=== PATIENT | male | born 1945 | race Caucasian/White ===

== ENCOUNTER → 2018-01-29 10:31 | Outpatient (CLI) | payer MEDICARE, SELFPAY ==
[2018-01-29 12:33] LABS: Anion Gap 8 (5-15); BUN 26 mg/dL (7-18); BUN/Creat Ratio 23.2 RATIO (10-20); Calcium,Total 9.1 mg/dL (8.5-10.1); Chloride 108 mmol/L (98-107); Cholesterol 139 mg/dL (200); Creatinine, Serum 1.12 mg/dL (0.70-1.30); EST Glomerular Filtration Rate 69 mL/min (>60); Est Glom Filt Rate - Afr Amer 83 mL/min (>60); Glucose 77 mg/dL (74-106); High Density Lipoprotein 52 mg/dL; Potassium 4.4 mmol/L (3.5-5.1); Sodium Level 140 mmol/L (136-145); Triglycerides 92 mg/dL; Very Low Density Lipoprotein 18 mg/dL (5-40)
== END ==
PROVIDERS: Family Provider Family Medicine; PCP Family Medicine; Visit Provider Family Medicine
DX: E78.5 Hyperlipidemia, unspecified (principal)
CPT/HCPCS: 36415; 80048; 80061

== ENCOUNTER → 2018-04-25 16:09 | Outpatient (CLI) | payer MEDICARE, SELFPAY ==
[2018-04-15 09:08] VITALS: BMI 24.0
[2018-04-25 18:12] LABS: PSA,Total - Annual Screen 5.23 ng/mL (0.00-4.00)
== END ==
PROVIDERS: Family Provider Family Medicine; PCP Family Medicine; Visit Provider Family Medicine
DX: R39.11 Hesitancy of micturition (principal); Z12.5 Encounter for screening for malignant neoplasm of prostate
CPT/HCPCS: 36415; 84153; G0103

== ENCOUNTER → 2018-10-31 | Outpatient (CLI) | payer MEDICARE, SELFPAY ==
[2018-04-15 09:08] VITALS: BMI 24.0
[2018-11-06 11:13] LABS: PSA,Total- Diagnostic 3.24 ng/mL (0.0-4.0)
== END | disposition home or self-care (01) ==
PROVIDERS: Family Provider Family Medicine; PCP Family Medicine; Referring Provider Family Medicine; Visit Provider Family Medicine
DX: R97.20 Elevated prostate specific antigen [PSA] (principal)
CPT/HCPCS: 36415; 84153; G0103

== ENCOUNTER → 2019-01-30 | Outpatient (CLI) | payer MEDICARE, SELFPAY ==
[2018-04-15 09:08] VITALS: BMI 24.0
[2019-01-30 13:19] LABS: Anion Gap 6 (5-15); BUN 26 mg/dL (7-18); BUN/Creat Ratio 24.8 RATIO (10-20); Calcium,Total 9.4 mg/dL (8.5-10.1); Chloride 110 mmol/L (98-107); Cholesterol 124 mg/dL (200); Creatinine, Serum 1.05 mg/dL (0.70-1.30); EST Glomerular Filtration Rate 74 mL/min (>60); Est Glom Filt Rate - Afr Amer 89 mL/min (>60); Glucose 75 mg/dL (74-106); High Density Lipoprotein 51 mg/dL; Potassium 4.4 mmol/L (3.5-5.1); Sodium Level 143 mmol/L (136-145); Triglycerides 55 mg/dL; Very Low Density Lipoprotein 11 mg/dL (5-40)
== END | disposition home or self-care (01) ==
LOC: MFPLAB 10:16
PROVIDERS: Family Provider Family Medicine; PCP Family Medicine; Referring Provider Family Medicine; Visit Provider Family Medicine
DX: Z00.00 Encounter for general adult medical examination without abnormal findings (principal)
CPT/HCPCS: 36415; 80048; 80061

== ENCOUNTER → 2019-03-19 10:46 | Outpatient (CLI) | payer MEDICARE, SELFPAY ==
[2018-04-15 09:08] VITALS: BMI 24.0
--- NOTE | 2019-03-19 13:10 | PFTCOMP_ITS ---
COMPLETE PULMONARY FUNCTION TEST INTERPRETATION Brief HPI: Patient is a 73 year old male, currently under the care of myself, who presents to [facility] [place] for complete pulmonary function tests secondary to diagnosis of emphysema. Respiratory therapist reports good effort and reproducible results. Interpretation: Forced expiration spirometry shows a moderate large airways obstructive ventilatory defect with an FEV1 of 68% predicted. There is no significant bronchodilator response by strict ATS criteria. Spirograms are of good quality and plateau slowly, indicating slowly emptying areas of the lungs. The respiratory flow volume loop shows decreased expiratory flow rates at all lung volumes consistent with airway obstruction. Lung volumes by body plethysmography show an elevated total lung capacity at 8.15 L, 114% predicted. All other lung volumes are increased symmetrically. Diffusion capacity by carbon monoxide is decreased at 67% predicted. The airway resistance is elevated. Compared to previous pulmonary function tests from 03/13/2017, there is been a significant improvement by 15% in FEV1 and DLCO. Impression: Irreversible moderate large airways obstructive ventilatory defect with a symmetric reduction in diffusing capacity. There has been some improvement since 2017.
== END ==
PROVIDERS: Family Provider Family Medicine; PCP Family Medicine; Referring Provider Internal Medicine Critical Care Medicine; Visit Provider Internal Medicine Critical Care Medicine
DX: J43.2 Centrilobular emphysema (principal); G47.33 Obstructive sleep apnea (adult) (pediatric); Z99.89 Dependence on other enabling machines and devices
CPT/HCPCS: 94060; 94726; 94729

== ENCOUNTER 2019-10-31 06:58 | Outpatient (RCR) | payer MEDICARE, SELFPAY ==
[2019-10-28 07:50] VITALS: BMI 24.7
--- NOTE | 2019-10-31 07:37 | HP.PTEVAL ---
Patient's Visit Information CINDY VIDES is a 74 year old M referred to Physical Therapy by FAVIOLA Moreno with a diagnosis of Shoulder Pain. Date of Evaluation: 10/31/19 Physical Therapist: Radha Lechuga DPT - Visit Plan Frequency: 1x/Week Duration: 6 Weeks Plan: Focus on HEP- will call if the elbow gets worse - Subjective Patient reports that he has pain in the right elbow- When it flares up he can't bend his arm. In the last few days he has been much better. Insidious onset. Was digging in the flower beds and golfed yesterday and had no problems. [facility] and they gave him a Predisone dose pack and its gotten much better since then. He saw them two weeks ago. Pain is located along both sides of the elbow and does have some snapping but it does not make it worse. No pain radiating- described as dull and achy. Right hand dominate. Agg: bending but not a lot at this point. Eases: prednisone- or Advil. 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 No neck pain, [place], blurred vision. 1st time for elbow pain. Recreational activities: breaux and golf- salt [place] [employer]- [employer] boat. Feels the elbow is back to 90%. PMHx/Meds: no change since [facility]. - Objective Posture: good throughout. Palpation: tender along lateral epicondyle. ROM: WNL in all planes of cervical, shoulder, elbow,wrist and hand. Strength: Shoulder: 4+/5, Scap: fair plus, Elbow: 4+/5, Wrist: 4+/5, Handbag Framer: 100, 90, 100 (equal to other side). - Goals Goal 1:: Patient will be I with HEP and progression Goal Time Frame: 4-6 Weeks - Rehabilitation Potential Physical Therapy Diagnosis: Patient presents with lateral epicondylitis pain- he has decreased strength and flex leading to pain. Rehabilitation Potential: Good - Anticipated Interventions Patient/Client Instruction: Educate patient on: Benefits of Fitness Program Therapeutic Exercise to Include: Strength training, Endurance training, Body mechanics, Postural training Thank you for the opportunity to evaluate your patient. For Medicare and Medicare HMO plans, please review the plan of care and approve it. It will need to be FAXED BACK to us at [phone] for Medicare purposes. For Medicare only, by signing this I certify the plan of care. Please let me know if there are questions or concerns regarding this plan of care. Physician Signature: Date:
== END 2019-10-31 19:00 | disposition home or self-care (01) ==
LOC: PT 06:58
PROVIDERS: PCP Family Medicine; Referring Provider Physician Assistant Surgical; Visit Provider Physician Assistant Surgical
DX: S46.911D Strain of unspecified muscle, fascia and tendon at shoulder and upper arm level, right arm, subsequent encounter (principal)
CPT/HCPCS: 97110; 97161

== ENCOUNTER → 2020-01-30 08:23 | Outpatient (CLI) | payer MEDICARE, SELFPAY ==
[2019-10-28 07:50] VITALS: BMI 24.7
[2020-01-30 10:16] LABS: Anion Gap 7 (5-15); BUN 25 mg/dL (7-18); BUN/Creat Ratio 22.7 RATIO (10-20); Calcium,Total 9.3 mg/dL (8.5-10.1); Chloride 111 mmol/L (98-107); Cholesterol 132 mg/dL (200); EST Glomerular Filtration Rate 70 mL/min (>60); Est Glom Filt Rate - Afr Amer 84 mL/min (>60); Glucose 88 mg/dL (74-106); High Density Lipoprotein 52 mg/dL; PSA,Total - Annual Screen 2.89 ng/mL (0.00-4.00); Potassium 4.2 mmol/L (3.5-5.1); Sodium Level 142 mmol/L (136-145); Triglycerides 79 mg/dL; Very Low Density Lipoprotein 16 mg/dL (5-40)
== END ==
PROVIDERS: PCP Family Medicine; Referring Provider Family Medicine; Visit Provider Family Medicine
DX: Z00.00 Encounter for general adult medical examination without abnormal findings (principal); E78.5 Hyperlipidemia, unspecified; Z12.5 Encounter for screening for malignant neoplasm of prostate
CPT/HCPCS: 36415; 80048; 80061; 84153; G0103

== ENCOUNTER 2020-06-08 08:30 | Outpatient (RCR) | payer MEDICARE, SELFPAY ==
[2020-05-30 08:28] VITALS: BMI 24.0
--- NOTE | 2020-06-05 11:38 | HP.PTEVAL ---
Patient's Visit Information CINDY VIDES is a 75 year old M referred to Physical Therapy by FAVIOLA Moreno with a diagnosis of dizziness and giddiness. Date of Evaluation: 06/05/20 Physical Therapist: JIGNESH Golden - Visit Plan Frequency: 1x/Week Duration: 3 Weeks Plan: 1X/ week for 3 weeks to treat with repositioning and possible habituation exercises to decrease feeling of dizziness - Subjective This started about 3 weeks ago and was not doing anything at the time. Currently he has a lightheadedness sitting here and it does not stop him. He does not lose his balance. He notices it bending over to toe his shoes or ifhe is lying on his back and goes to stand up. He has had it before in his head where he couold not focus but does not have those issues this time. He had meclazenine and that did not work for the last week and a half. When he goes from supine to sit his head really spins for about less than a minute. No ear pain or ringing in his ears. IF he bend over to tie his shoes he will feel it a little bit. No BP meds. No room spinning dizziness. No LOB. He is still working out 3X/ week - Objective -R Hallpike for dizziness and nystagmus. On the L pt had no visable to the naked eye nystagmus but pt said the room was spinning for less than 30 seconds. Went ahead and treated with L EPLY. Re-check of L Hallpike and pt had no visable nystagmus and no dizziness. He sat back up and had a slight hint of dizziness but felt it was more of a blood pressure feeling than spinning. When walking out pt felt a slight overall head pressure feeling but not dizzy. - Goals Goal 1:: I HEP Goal Time Frame: 2-4 Weeks Goal 2:: Abolish dizziness when going from supine to sit Goal Time Frame: 2-4 Weeks Goal 3:: Abolish head dizzy feeling/ spacey when sitting. Goal Time Frame: 4-6 Weeks - Rehabilitation Potential Rehabilitation Potential: Good - Anticipated Interventions Patient/Client Instruction: Educate patient on: Condition, Plan of Care For the Purpose of:: To improve nutrient delivery to tissue, To improve muscle performance and motor function, To improve ability to perform ADL's, To increase tolerance to activity/condition/position, To improve performance and independence with ADL's, To decrease level of supervision to perform tasks, To improve ability of physical actions for home/community/work/leisure, To improve gait and locomotor functions Therapeutic Exercise to Include: Postural training, Gait and locomotor training, Neuromotor development, Passive ROM For the Purpose of:: To improve nutrient delivery to tissue, To improve muscle performance and motor function, To improve ability to perform ADL's, To increase tolerance to activity/condition/position, To improve performance and independence with ADL's, To improve gait and locomotor functions, To improve health of tissue Manual Therapy Techniques to Include: Other For the Purpose of:: To improve ability to perform ADL's, To increase tolerance to activity/condition/position, To improve ability of physical actions for home/community/work/leisure, To improve gait and locomotor functions, To improve balance Thank you for the opportunity to evaluate your patient. For Medicare and Medicare HMO plans, please review the plan of care and approve it. It will need to be FAXED BACK to us at [phone] for Medicare purposes. For Medicare only, by signing this I certify the plan of care. Please let me know if there are questions or concerns regarding this plan of care. Physician Signature: Date:
--- NOTE | 2020-09-08 13:21 | HP.PTDCNRP_ITS ---
CINDY MANUELA PEEWEE was seen in my office for initial evaluation on 06/05/20. The following Plan of Care was established for this patient: Initial Frequency: 1x/Week Initial Duration: 3 Weeks Patient/Client Instruction: Educate patient on: Condition, Plan of Care For the Purpose of:: To improve nutrient delivery to tissue, To improve muscle performance and motor function, To improve ability to perform ADL's, To increase tolerance to activity/condition/position, To improve performance and independence with ADL's, To decrease level of supervision to perform tasks, To improve ability of physical actions for home/community/work/leisure, To improve gait and locomotor functions Therapeutic Exercise to Include: Postural training, Gait and locomotor training, Neuromotor development, Passive ROM For the Purpose of:: To improve nutrient delivery to tissue, To improve muscle performance and motor function, To improve ability to perform ADL's, To increase tolerance to activity/condition/position, To improve performance and indepe ndence with ADL's, To improve gait and locomotor functions, To improve health of tissue Manual Therapy Techniques to Include: Other For the Purpose of:: To improve ability to perform ADL's, To increase tolerance to activity/condition/position, To improve ability of physical actions for home/community/work/leisure, To improve gait and locomotor functions, To improve balance This patient was last seen in our office 06/08/20. Pertinent comments regarding their Physical therapy will appear below: Pt was to call in within 2 weeks if his dizziness came back and he did not. He will be discharged from our care at this time. At this point I will be discontinuing this patient from physical therapy. I would be happy to see this patient again in the future if found appropriate by the physician. Thank you! Haley Tripp, MPT
== END 2020-06-08 19:00 | disposition home or self-care (01) ==
LOC: PT 08:30
PROVIDERS: PCP Family Medicine; Referring Provider Physician Assistant Surgical; Visit Provider Physician Assistant Surgical
DX: R42 Dizziness and giddiness (principal)
CPT/HCPCS: 97110; 97161

== ENCOUNTER → 2021-02-15 08:38 | Outpatient (CLI) | payer MEDICARE, SELFPAY ==
[2021-02-15 10:47] LABS: Anion Gap 6 (5-15); BUN 24 mg/dL (7-18); BUN/Creat Ratio 20.2 RATIO (10-20); Calcium,Total 9.7 mg/dL (8.5-10.1); Chloride 110 mmol/L (98-107); Cholesterol 130 mg/dL (200); Creatinine, Serum 1.19 mg/dL (0.70-1.30); EST Glomerular Filtration Rate 63 mL/min (>60); Est Glom Filt Rate - Afr Amer 77 mL/min (>60); Glucose 94 mg/dL (74-106); High Density Lipoprotein 47 mg/dL; PSA,Total - Annual Screen 3.17 ng/mL (0.00-4.00); Potassium 4.2 mmol/L (3.5-5.1); Sodium Level 143 mmol/L (136-145); Triglycerides 92 mg/dL; Very Low Density Lipoprotein 18 mg/dL (5-40)
== END ==
PROVIDERS: PCP Family Medicine; Visit Provider Family Medicine
DX: Z00.00 Encounter for general adult medical examination without abnormal findings (principal)
CPT/HCPCS: 36415; 80048; 80061; 84153; G0103

== ENCOUNTER 2021-08-12 18:30 | Outpatient (RCR) | payer MEDICARE, SELFPAY ==
--- NOTE | 2021-08-09 07:22 | HP.PTEVAL ---
Patient's Visit Information CINDY VIDES is a 76 year old M referred to Physical Therapy by Dr. Apolinar Lange MD with a diagnosis of vertigo. Date of Evaluation: 08/09/21 Physical Therapist: Rob Mustafa, DANIELE, OCS, CSCS - Visit Plan Frequency: 1-2x /Week Duration: 2-4 Weeks Plan: 1-2x/week x 2-4 weeks as needed for positional treatments and vestibular/balance if needed. - Subjective Vertigo. Has had it in the past. No spinning at rest. Lying in bed and rolling or bending and standing cause some spinning for 5-10 seconds. Present a couple weeks. Feels normal in between those episodes. Treadmill is fine and balance is fine. No falls. sleeps well after first 5 seconds or when turns to right then annoying for a little bit. Offered meclizine but hasn't helped int he past. Activities are normal otherwise. - Objective Walking on TM for workout upon start time of therapy as he does this 3x/week with some weight training. Good balance, trasnfers normal and I and jogs up steps. Cervical aROM is full and without pain. - B hallpike brisa. + L roll test with geotropic nystagmus, treated with BBQ roll. - Balance/Special Test Scores Functional Gait Assessment Score: 30 % Disability: 0 Dizziness Score: 20 - Goals Goal 1:: abolish dizzyness bending and rolling in bed. x 3 days Goal Time Frame: 2-4 Weeks Goal 2:: pt feel 100% back to normal Goal Time Frame: 2-4 Weeks - Rehabilitation Potential Physical Therapy Diagnosis: BPPV HC Rehabilitation Potential: Fair - Anticipated Interventions Patient/Client Instruction: Educate patient on: Condition, Plan of Care For the Purpose of:: To increase tolerance to activity/condition/position Therapeutic Exercise to Include: Balance training Comment: positional For the Purpose of:: To increase tolerance to activity/condition/position, To improve safety Thank you for the opportunity to evaluate your patient. For Medicare and Medicare HMO plans, please review the plan of care and approve it. It will need to be FAXED BACK to us at [phone] for Medicare purposes. For Medicare only, by signing this I certify the plan of care. Please let me know if there are questions or concerns regarding this plan of care. Physician Signature: Date:
--- NOTE | 2021-09-28 18:29 | HP.PT.NRP ---
CINDY MANUELA PEEWEE was seen in my office for initial evaluation on 08/09/21. The following Plan of Care was established for this patient: Initial Frequency: 1-2x /Week Initial Duration: 2-4 Weeks Patient/Client Instruction: Educate patient on: Condition, Plan of Care For the Purpose of:: To increase tolerance to activity/condition/position Therapeutic Exercise to Include: Balance training For the Purpose of:: To increase tolerance to activity/condition/position, To improve safety This patient was last seen in our office 08/12/21. Pertinent comments regarding their Physical therapy will appear below: Pt seen two visits of positional treatments. He was 75% better and was to return for monitor of continued improvement. He did not. At this point, it has been over a month and I will discontinue due to nonattendance. At this point I will be discontinuing this patient from physical therapy. I would be happy to see this patient again in the future if found appropriate by the physician. Thank you! Rob Mustafa, DPT, OCS, CSCS Balance/Gait/Functional tests - Balance/Special Test Scores Functional Gait Assessment Score: 30 % Disability: 0 Dizziness Score: 20
== END 2021-08-12 19:00 | disposition home or self-care (01) ==
LOC: PT 18:30
PROVIDERS: PCP Family Medicine; Referring Provider Family Medicine; Visit Provider Family Medicine
DX: R42 Dizziness and giddiness (principal)
CPT/HCPCS: 97161; 97530

== ENCOUNTER → 2022-03-16 | Outpatient (CLI) | payer MEDICARE, SELFPAY ==
[2022-03-16 13:02] LABS: Anion Gap 6 (5-15); BUN 24 mg/dL (7-18); BUN/Creat Ratio 22.2 RATIO (10-20); Calcium,Total 9.6 mg/dL (8.5-10.1); Chloride 108 mmol/L (98-107); Cholesterol 143 mg/dL (200); Creatinine, Serum 1.08 mg/dL (0.70-1.30); EST Glomerular Filtration Rate 71 mL/min (>60); Est Glom Filt Rate - Afr Amer 86 mL/min (>60); Glucose 81 mg/dL (74-106); High Density Lipoprotein 50 mg/dL; PSA,Total - Annual Screen 3.41 ng/mL (0.00-4.00); Potassium 4.8 mmol/L (3.5-5.1); Sodium Level 143 mmol/L (136-145); Triglycerides 81 mg/dL; Very Low Density Lipoprotein 16 mg/dL (5-40)
== END | disposition home or self-care (01) ==
LOC: MFPLAB 09:32
PROVIDERS: PCP Family Medicine; Referring Provider Family Medicine; Visit Provider Family Medicine
DX: Z00.00 Encounter for general adult medical examination without abnormal findings (principal); E78.5 Hyperlipidemia, unspecified; Z12.5 Encounter for screening for malignant neoplasm of prostate
CPT/HCPCS: 36415; 80048; 80061; 84153; G0103

== ENCOUNTER → 2022-06-17 | Outpatient (CLI) | payer MEDICARE, SELFPAY ==
[2022-06-17 18:11] LABS: Erythrocyte Sedimentation Rate 14 mm/hr (0-20)
[2022-06-17 18:12] LABS: Absolute Lymphocyte Count 0.93 X10^3/uL (0.83-4.51); Absolute Neutrophil Count 4.8 X10^3/uL (2.0-7.7); Basophil# 0.03 X10^3/uL; Basophil% 0.5 % (0-1); Eosinophils% 1.5 % (0-5); Hemoglobin 12.7 g/dL (13.0-16.5); Lymphocyte # 0.93 X10^3/ul (0.83-4.51); Lymphocyte % 14.4 % (19-41); Mean Corp Hgb Conc 32.6 g/dL (32-36); Mean Corpuscular Hgb 31.5 pg (27.0-32.0); Mean Corpuscular Volume 96.8 fL (80-94); Mean Platelet Vol. 9.8 fl (6.2-12.0); Monocyte# 0.55 X10^3/uL; Monocyte% 8.5 % (0-10); NRBC Flagged by Analyzer 0 % (0-5); Neutrophil # 4.82 X10^3/uL (2.7-7.7); Neutrophil % 74.6 % (47-70); Platelet Count 255 K/mm3 (150-450); RBC Distribution Width CV 13.7 % (11.6-14.6); RBC Distribution Width SD 49.1 fl (35.1-43.9); Red Blood Count 4.03 M/mm3 (4.6-6.2); White Blood Count 6.5 K/mm3 (4.4-11.0)
[2022-06-17 18:24] LABS: ALB/GLOB Ratio 0.9 RATIO (0.9-2.4); AST(SGOT) 17 U/L (15-37); Alanine Aminotransfer ALT/SGPT 17 U/L (16-61); Albumin, Serum 3.3 g/dL (3.2-5.0); Alkaline Phosphatase 70 U/L (45-117); Anion Gap 8 (5-15); BUN 21 mg/dL (7-18); BUN/Creat Ratio 18.3 RATIO (10-20); Calcium,Total 9.3 mg/dL (8.5-10.1); Chloride 103 mmol/L (98-107); Creatinine, Serum 1.15 mg/dL (0.70-1.30); EST Glomerular Filtration Rate 66 mL/min (>60); Est Glom Filt Rate - Afr Amer 80 mL/min (>60); Globulin 3.7 g/dL (2.2-4.2); Glucose 90 mg/dL (74-106); Potassium 3.6 mmol/L (3.5-5.1); Sodium Level 140 mmol/L (136-145); Thyroid Stim Hormone (TSH) 1.42 uIU/mL (0.358-3.74)
== END | disposition home or self-care (01) ==
LOC: MFPLAB 15:13
PROVIDERS: PCP Family Medicine; Visit Provider Family Medicine
DX: R53.81 Other malaise (principal); R53.83 Other fatigue
CPT/HCPCS: 36415; 80053; 84443; 85025; 85652

== ENCOUNTER → 2023-03-20 | Outpatient (CLI) | payer MEDICARE, SELFPAY ==
[2023-03-20 11:44] LABS: Vitamin D,25 Hydroxy 75.9 ng/mL
[2023-03-20 11:59] LABS: Anion Gap 5 (5-15); BUN 23 mg/dL (7-18); BUN/Creat Ratio 21.9 RATIO (10-20); Calcium,Total 9.5 mg/dL (8.5-10.1); Chloride 109 mmol/L (98-107); Cholesterol 151 mg/dL (200); Creatinine, Serum 1.05 mg/dL (0.70-1.30); EST Glomerular Filtration Rate 73 mL/min (>60); Est Glom Filt Rate - Afr Amer 88 mL/min (>60); Glucose 89 mg/dL (74-106); High Density Lipoprotein 50 mg/dL; PSA,Total- Diagnostic 3.34 ng/mL (0.0-4.0); Potassium 4.4 mmol/L (3.5-5.1); Sodium Level 141 mmol/L (136-145); Triglycerides 110 mg/dL; Very Low Density Lipoprotein 22 mg/dL (5-40)
== END | disposition home or self-care (01) ==
LOC: MFPLAB 09:10
PROVIDERS: PCP Family Medicine; Visit Provider Family Medicine
DX: Z00.00 Encounter for general adult medical examination without abnormal findings (principal); R53.81 Other malaise; R53.83 Other fatigue
CPT/HCPCS: 36415; 80048; 80061; 82306; 84153

== ENCOUNTER 2023-04-24 12:56 | Inpatient (IN) | payer MEDICARE, SELFPAY ==
[2023-04-24] VITALS (7 sets, daily range): BP systolic 131–170; BP diastolic 71–92; PULSE 58–72; RESP 18–20; TEMP 35.6–36.7; O2SAT 94–98; BMI 24.3; BMI 24.5
--- NOTE | 2023-04-24 13:28 | EDS_ITS ---
HPI History of Present Illness Chief Complaint: Dizziness Informant: patient Onset/Context/Timing Onset: Weeks (3) Context: Gradual Onset Timing: Continuous and Waxes and wanes Quality: Off balance Location: Generalized Worsened by: Standing Relieved by: Sitting, lying down Narrative Narrative: Patient presents with dizziness that began 3 weeks ago. Patient states it has been waxing and waning over the past 3 weeks. Patient states it is worse whenever he stands up. Patient states he feels more off balance. Patient denies any spinning sensation. Patient states that he feels like he is falling to the left when he tries to ambulate. Patient states it is better when he sits and lies down. Patient admits to a mild headache. Patient admits to some nausea but denies any vomiting. Patient denies any fevers or chills. Patient denies any chest pain or shortness of breath. Patient denies any visual or hearing changes. [facility] Medical History (Updated 04/24/23 @ 15:[address] Rob Vizcaino, DO) BPH (benign prostatic hyperplasia) COPD (chronic obstructive pulmonary disease) with emphysema COVID-19 Former tobacco use History of colonic polyps EFFIE (obstructive sleep apnea) Home Medications tamsulosin 0.4 mg capsule 0.4 mg PO DAILY PROSTATE 04/02/19 [History Last Taken Unknown] meclizine 25 mg tablet 25 mg PO TID PRN DIZZINESS #30 tabs 05/24/20 [Rx Last Taken Unknown] fluticasone propionate 50 mcg/actuation nasal spray,suspension 2 spray intranasal DAILY NASAL CONGESTION #16 grams 04/20/22 [Rx Last Taken Unknown] ipratropium 20 mcg-albuterol 100 mcg/actuation mist for inhalation (Combivent Respimat) 1 puff inhalation Q6H WHEEZING #4 grams 08/09/22 [Rx Last Taken Unknown] Allergy/AdvReac Type Severity Reaction Status Date / Time Environmental Allergies: Allergy sneezing Verified 04/24/23 12:57 Uncoded [hay] animal dander AdvReac Mild Other Verified 04/24/23 12:57 oak AdvReac Mild Other Verified 04/24/23 12:57 moxifloxacin HCl AdvReac Nausea Verified 04/24/23 12:57 [From Avelox] prochlorperazine AdvReac Other Verified 04/24/23 12:57 [From Compazine] prochlorperazine edisylate AdvReac Other Verified 04/24/23 12:57 [From Compazine] prochlorperazine maleate AdvReac Other Verified 04/24/23 12:57 [From Compazine] Family History Father Hypertension Kidney disease Mother Hypertension CVA (cerebral vascular accident) Surgical History History of appendectomy History of back surgery History of left knee surgery History of right hemicolectomy Social History (Updated 04/24/23 @ 15:[address] Glenda Araujo MD) household members: spouse Smoking Status: Former smoker pack-years: 63 second hand exposure: No alcohol intake: current alcohol intake frequency: holidays/special occasions only Alcohol type: beer substance use type: does not use caffeine: Yes (3/day) ROS ROS ED Constitutional Constitutional ED: Denies chills or fever(s) Eyes Eyes: Denies blurry vision or change in vision ENT ENT ED: Denies rhinorrhea or sore throat Cardiovascular Cardiovascular: Denies chest pain or palpitations Respiratory/Chest Respiratory/Chest: Denies cough or dyspnea Gastrointestinal Gastrointestinal: Reports nausea; Denies vomiting Genitourinary Genitourinary ED: Denies dysuria or hematuria Musculoskeletal Musculoskeletal: Denies back pain or neck pain Integumentary Denies abscess or rash Neurologic Neurologic: Reports headache(s); Denies weakness Allergic/Immunologic Allergic/Immunologic ED: Denies mouth swelling or urticaria EXAM Physical Exam Const Vital Signs: 04/24/23 12:57 04/24/23 15:03 04/24/23 15:21 Temperature 96.1 F L Temperature Source Temporal Pulse Rate 72 Pulse Rate [Lying] 58 L Pulse Rate [Sitting (for 1 minute prior to obtaining)] 68 Pulse Rate [Standing (for 1 minute prior to obtaining)] 63 Respiratory Rate 18 Respiratory Effort Normal Non-Labored Respiratory Pattern Normal Blood Pressure 131/82 H Blood Pressure [Lying] 138/71 H Blood Pressure [Sitting (for 1 minute prior to obtaining)] 137/84 H Blood Pressure [Standing (for 1 minute prior to obtaining)] 133/87 H Blood Pressure Mean 98 Blood Pressure Mean [Lying] 93 Blood Pressure Mean [Sitting (for 1 minute prior to obtaining)] 101 Blood Pressure Mean [Standing (for 1 minute prior to obtaining)] 102 Pulse Ox 97 Oxygen Delivery Method Room Air Positive well nourished and well developed General Appearance ED: well developed and NAD HEENT Reports moist mucous membranes Eyes PERRL and EOMs intact bilaterally Eyes Narrative: There is no nystagmus noted. Neck supple and no JVD Resp normal respiratory effort and clear to auscultation bilaterally Cardio regular rate and regular rhythm GI non-tender and non-distended Palpation: soft Extremity normal to inspection General Extremety ED: Negative for edema or tenderness General Extremity: Negative for edema Neuro oriented x3, CN's II-XII intact bilaterally and no sensory deficits noted Sensorium / Orientation: alert Motor Exam: strength 5/5 throughout Psych mental status grossly normal MDM MDM MDM Narrative Medical decision making narrative: Differential diagnosis includes vertigo, orthostatic hypotension, stroke, electrolyte abnormality, dehydration, cardiac dysrhythmia, and cardiac ischemia. EKG will be obtained to assess for cardiac dysrhythmia and cardiac ischemia. CT scan of the brain will be obtained to assess for stroke and intracranial bleeding. CBC will be obtained to assess for leukocytosis and anemia. Basic metabolic profile will be obtained to assess for electrolyte abnormality and renal function. Lab Data Attestation: I reviewed the patient's lab results. Lab results narrative: CBC was reviewed and was within normal limits. Basic metabolic profile was reviewed and was within normal limits. High-sensitivity troponin was reviewed and was normal at 8. Labs: Laboratory Results - last 24 hr 04/24/23 14:15 WBC 7.3 RBC 4.71 Hgb 14.4 Hct 44.9 MCV 95.3 H MCH 30.6 MCHC 32.1 RDW Std Deviation 47.1 H RDW Coeff of [place] 13.4 Plt Count 247 MPV 9.9 Immature Gran % (Auto) 0.400 Neut % (Auto) 88.0 H Lymph % (Auto) 7.2 L [place] % (Auto) 3.7 Eos % (Auto) 0.3 Baso % (Auto) 0.4 Absolute Neuts (auto) 6.5 Absolute Lymphs (auto) 0.53 L Nucleated RBC % 0 Differential Comment SEE COMMENT Platelet Estimate ADEQUATE RBC Morphology N CHROM Anisocytosis RARE Macrocytosis RARE Sodium 139 Potassium 4.4 Chloride 108 H Carbon Dioxide 27.0 Anion Gap 4 L BUN 25 H Creatinine 1.07 Estim Creat Clear Calc 62.55 Est GFR (MDRD) Af Amer 86 Est GFR (MDRD) Non-Af 71 BUN/Creatinine Ratio 23.4 H Glucose 88 Calcium 10.0 Troponin I High Sens 8 Radiography Diagnostic Testing: Clinical Impression(s) from Imaging Studies Brain CT 04/24/23 14:35 IMPRESSION: Right cerebellar low-density lesion could be due to infarct or tumor. Further evaluation with MRI of the brain with contrast is recommended. Electronically Signed: Adarsh Soto MD at 14:57 EST , ADDENDUM: 04/24/23 1514 IMPRESSION: Right cerebellar low-density lesion could be due to infarct or tumor. Further evaluation with MRI of the brain with contrast is recommended. N.B. : The above Results were Read Back by Adarsh Soto MD to Rob Vizcaino DO, and understanding confirmed on 04/24/2023 15:07:09 (ET). Electronically Signed: Adarsh Soto MD at 14:57 EST , CT scan of the brain was obtained. There is a right cerebellar low-density lesion that could be infarct or tumor. There is no definite intracranial hemorrhage or hematoma. This was interpreted by the radiologist and was also independently reviewed by myself. EKG Initial EKG: Attestation: I personally reviewed and interpreted this EKG as follows: Interpretation: Sinus Bradycardia (56) and Non-Specific ST Changes Comments: EKG was obtained. On my independent interpretation, it showed a sinus bradycardia with a rate of 56. SD interval, QRS interval, and QTc intervals were all normal. [place] was normal. There are nonspecific ST-T wave changes. There is low voltage across the precordial leads. Prior EKG tracings: available for review Prior: Unchanged (03/14/2015) Treatment and Re-Evaluation :: Patient was given a dose of Valium here. Orthostatic vital signs were ordered. Patient had no change in his symptoms after Valium. However, patient has been sitting in bed. Patient was advised of his findings. Case was discussed with the hospitalist. She will admit the patient to her service. Patient understood and was agreeable with the plan. All questions were answered. Discharge Plan Triage Chief Complaint: Dizziness ED Provider: Rob Vizcaino Dx/Rx/DC Orders Clinical Impression: Vertigo, Cerebellar stroke Prescriptions: No Action tamsulosin 0.4 mg capsule 0.4 mg PO DAILY meclizine 25 mg tablet 25 mg PO TID PRN (Reason: DIZZINESS ) Qty: 30 1RF fluticasone propionate 50 mcg/actuation spray,suspension 2 spray INTRANASAL DAILY Qty: 16 5RF Combivent Respimat 20-100 mcg/actuation mist 1 puff INHALATION Q6H Qty: 4 3RF Primary Care Provider: Apolinar Lange Referrals: Apolinar Lange MD [Primary Care Provider] - Disposition Disposition: Acute Care Hospital [facility]
--- NOTE | 2023-04-24 13:50 | EKG12_ITS ---
Test Reason : Blood Pressure : / mmHG Vent. Rate : 056 BPM Atrial Rate : 056 BPM P-R Int : 144 ms QRS Dur : 076 ms QT Int : 408 ms P-R-T Axes : 018 006 021 degrees QTc Int : 393 ms Sinus bradycardia Possible Inferior infarct , age undetermined Abnormal ECG Confirmed by CHARLIE RUIZ, GILMA ([id number]), editor in chief newspaper RADHA STEPHENSON ([id number]) on 04/25/2023 10:07:11 AM Referred By: Confirmed By:GILMA GUERRA MD
[2023-04-24] MEDS: 0.9% Normal Saline (1000mL) 1,000 ML 1000 ML IV (14:21)
[2023-04-24] MEDS: diazePAM 5 MG Tablet 2.5 MG PO (14:21)
[2023-04-24 14:26] LABS: Absolute Lymphocyte Count 0.53 X10^3/uL (0.83-4.51); Absolute Neutrophil Count 6.5 X10^3/uL (2.0-7.7); Basophil# 0.03 X10^3/uL; Basophil% 0.4 % (0-1); Eosinophil# 0.02 X10^3/uL; Eosinophils% 0.3 % (0-5); Hematocrit 44.9 % (40-54); Hemoglobin 14.4 g/dL (13.0-16.5); Lymphocyte # 0.53 X10^3/ul (0.83-4.51); Lymphocyte % 7.2 % (19-41); Mean Corp Hgb Conc 32.1 g/dL (32-36); Mean Corpuscular Hgb 30.6 pg (27.0-32.0); Mean Corpuscular Volume 95.3 fL (80-94); Mean Platelet Vol. 9.9 fl (6.2-12.0); Monocyte# 0.27 X10^3/uL; Monocyte% 3.7 % (0-10); NRBC Flagged by Analyzer 0 % (0-5); Neutrophil # 6.46 X10^3/uL (2.7-7.7); POSITIVE DIFFERENTIAL YES; Platelet Count 247 K/mm3 (150-450); RBC Distribution Width CV 13.4 % (11.6-14.6); RBC Distribution Width SD 47.1 fl (35.1-43.9); Red Blood Count 4.71 M/mm3 (4.6-6.2); White Blood Count 7.3 K/mm3 (4.4-11.0)
[2023-04-24 14:28] LABS: Differential Indicated SCAN CRITERIA MET
--- NOTE | 2023-04-24 14:35 | CT_ITS ---
We are attempting to reach an attending provider to discuss findings. An addendum with communication details will be sent when the communication is complete. INDICATION: Headache EXAMINATION: CT BRAIN - CT Head or Brain W/O Contrast Injection TECHNIQUE: Multiple axial images were obtained of the head without intravenous contrast. A radiation dose optimization technique was used for this scan. IV Contrast dosage and agent: None. RADIATION DOSAGE (If Supplied By Facility): CTDIvol = ( 44.99 ) mGy, DLP = ( 880.47 ) mGycm COMPARISON: No relevant prior comparison study available FINDINGS: BRAIN PARENCHYMA: No intra- or extra-axial hemorrhage. Hypodense lesion in the right cerebellar with vasogenic edema. No definite intracranial hemorrhage or subdural hematoma. There is otherwise preservation of the arnold/white matter interface. Posterior fossa structures are unremarkable. CSF SPACES: Appropriate for age. No hydrocephalus. Basal cisterns are patent. CALVARIUM, SKULL BASE, PARANASAL SINUSES AND MASTOID AIR CELLS: Clear. No discrete lytic or blastic abnormalities. ORBITS: Both globes, extraocular muscles, optic nerves and retrobulbar fat appear unremarkable. CT/Brain/Head without Contrast IMPRESSION: Right cerebellar low-density lesion could be due to infarct or tumor. Further evaluation with MRI of the brain with contrast is recommended. Electronically Signed: Adarsh Soto MD at 14:57 EST ,
[2023-04-24 14:52] LABS: Anion Gap 4 (5-15); BUN 25 mg/dL (7-18); BUN/Creat Ratio 23.4 RATIO (10-20); Chloride 108 mmol/L (98-107); Creatinine, Serum 1.07 mg/dL (0.70-1.30); EST Glomerular Filtration Rate 71 mL/min (>60); Est Glom Filt Rate - Afr Amer 86 mL/min (>60); Estimated Creatinine Clearance 62.55 ml/min; Glucose 88 mg/dL (74-106); Potassium 4.4 mmol/L (3.5-5.1); Sodium Level 139 mmol/L (136-145); Troponin-I HS 8 pg/mL (3.0-78.0)
--- OUTSIDE RECORDS SUMMARY | 2023-04-24 14:59 | XMS RPT_ITS | CCD ---
Author Name Unknown Address [address] [place] [address] Organization [facility] Care Team Providers Care Assistant Kitchen Manager Name Role Phone Claribel Herman Unavailable Unavailable Claribel Herman Unavailable Unavailable Allergies Allergy Classification Reported Allergen(s) Allergy Type Date of Onset Reaction(s) Facility (2 sources) moxifloxacin Drug Allergy 5 Nausea [facility] Phone: (2 sources) Prochlorperazine Drug Allergy 5 Tardykinesia [facility] Phone: Medications Completed/Discontinued Medications Medication Drug Class(es) Dates Sig (Normalized) Sig (Original) acetaminophen 325 mg / oxyCODONE hydrochloride 5 mg oral tablet (6 sources) Opioid Agonist Start: 03-25-2015 End: 07-09-2015 take 1-2 tablets by mouth every four hours as needed PERCOCET 5-325 MG TABS 1-2 tablets PO q4h as needed OXYCODONE-ACETAMI SHANKARHEN [id number] Claribel Conteh 120 actuat albuterol 0.1 mg/actuat / ipratropium bromide 0.02 mg/actuat metered dose inhaler (2 sources) Anticholinergic, beta2-Adrenergic Agonist Start: 03-03-2015 take 20-100 ug by inhalation every six hours as needed COMBIVENT RESPIMAT 20-100 MCG/ACT AERS 2 puffs INH q6 hours PRN wheezing IPRATROPIUM-ALBUT SHARLENE [id number] Ashley Hale CNP aspirin 81 mg oral tablet (4 sources) Platelet Aggregation Inhibitor, Nonsteroidal Anti-inflammatory Drug Start: 03-25-2015 End: 07-09-2015 take 1 tablet by mouth once daily ASPIRIN 81 MG ORAL TABS One tablet by mouth daily ASPIRIN [id number] Claribel E Tullar fluticasone propionate 0.05 mg/actuat metered dose nasal spray (2 sources) Corticosteroid Start: 03-25-2015 FLONASE ALLERGY RELIEF 50 MCG/ACT SUSP Nasally twice daily as needed FLUTICASONE PROPIONATE [id number] Claribel E Tullar 14 actuat fluticasone furoate 0.1 mg/actuat / vilanterol 0.025 mg/actuat dry powder inhaler (8 sources) Corticosteroid, beta2-Adrenergic Agonist Start: 07-09-2015 End: 10-03-2016 take 1 puff(s) by inhalation once daily BREO ELLIPTA 100-25 MCG/INH AEPB 1 puff daily FLUTICASONE FUROATE-VILANTERO L [id number] Ashley Hale IMMIGRATION INSPECTOR loratadine 10 mg oral tablet (2 sources) Start: 03-25-2015 take 1 tablet by mouth once daily as needed CLARITIN 10 MG TABS One tablet by mouth daily as needed LORATADINE [id number] Claribel E Ashoklar omeprazole 40 mg delayed release oral capsule (4 sources) Proton Pump Inhibitor End: 07-09-2015 take 1 tablet by mouth once daily PRILOSEC 40 MG ORAL CPDR One tablet by mouth daily OMEPRAZOLE [id number] Ashley Hale IMMIGRATION INSPECTOR Problems Active Problems Problem Classification Problem Date Documented Da te Episodic/Chronic Chronic obstructive pulmonary disease and bronchiectasis (6 sources) Chronic obstructive lung disease; Translations: [Moderate chronic obstructive pulmonary disease] Onset: 07-09-2015 Resolved: 04-06-2016 04-06-2016 Chronic Residual codes; unclassified (2 sources) Obstructive sleep apnea of adult; Translations: [Obstructive sleep apnea (adult) (pediatric)] Onset: 03-26-2015 03-29-2015 Chronic Past or Other Problems Problem Classification Problem Date Documented Da te Episodic/Chronic Other lower respiratory disease (4 sources) Dyspnea; Translations: [Dyspnea, unspecified] Onset: 03-26-2015 Resolved: 10-12-2015 10-12-2015 Episodic Results Test Name Value Interpretation Reference Range Facil ity Vital Signs Date Time Vital Sign Value Performing Clinician Faci lity 10-03-2016 13:44-0400 BMI (Body Mass Index) 25.77 kg/m2 Claribel Virgil [facility] Work Phone: 10-03-2016 13:44-0400 Body Temperature 98.9 [degF] Claribel Virgil [facility] Work Phone: 10-03-2016 13:44-0400 BP Diastolic 83 mm[Hg] Claribel Virgil [facility] Work Phone: 10-03-2016 13:44-0400 BP Systolic 136 mm[Hg] Claribel Impulsonic [facility] Work Phone: 10-03-2016 13:44-0400 Height 182.88 cm Claribel Impulsonic [facility] Work Phone: 10-03-2016 13:44-0400 Pulse (Heart Rate) 60 /min Claribel [facility]ulsonic [facility] Work Phone: 10-03-2016 13:44-0400 Pulse Oximetry 96 % Claribel [facility]ulsonic [facility] Work Phone: 10-03-2016 13:44-0400 Respiratory Rate 18 /min Claribel [facility]ulsonic [facility] Work Phone: 10-03-2016 13:44-0400 Weight 86.18 kg Claribel [facility]ic [facility] Work Phone: 04-06-2016 08:42-0500 Body Temperature 96.8 [degF] Claribel Impulsonic [facility] Work Phone: 04-06-2016 08:42-0500 BSA (Body Surface Area) 2.09 m2 Claribel Impulsonic [facility] Work Phone: 04-06-2016 08:42-0500 Height 182.88 cm Claribel [facility]ulsonic [facility] Work Phone: 04-06-2016 08:42-0500 Weight 86.82 kg Claribelgeorge Herman [facility] Work Phone: Procedures Date Procedure Procedure Detail Performing Clinician Start: 07-09-2015 End: 07-09-2015 Demo&/eval of pt utiliz aersl gen/neb/inhlr/ip Ashley Hale IMMIGRATION INSPECTOR Work Phone: Start: 07-09-2015 End: 04-01-2016 Follow Up Appt 3 months Ashley huang YOGI Work Phone: Start: 03-26-2015 End: 04-01-2016 [facility] Adarsh Smith Work Phone: Start: 03-26-2015 End: 04-01-2016 Follow Up Appt 3 months Adarsh Smith Work Phone: Start: 03-26-2015 End: 04-01-2016 Pulmonary Function Test - complete Adarsh Smith [facility] Phone: Start: 03-26-2015 End: 04-01-2016 Pulmonary stress test/simple Adarsh Smith Work Phone: Plan of Treatment Date Care Activity Detail Author Start: 04-03-2017 End: 04-03-2017 Appointment Appointment [facility] Phone: Start: 03-13-2017 End: 10-03-2016 Pulmonary Function Test - complete Pulmonary Function Test - complete [facility] Phone: Start: 03-13-2017 End: 10-03-2016 Pulmonary stress test/simple Pulmonary stress testing; simple (eg, 6-minute walk) [facility] Phone: Start: 10-03-2016 End: 10-03-2016 [facility] Phone: Start: 10-03-2016 End: 10-03-2016 Follow Up Appt 6 months Follow Up Appt 6 months [facility] Phone: Start: 04-06-2016 End: 04-06-2016 [facility] Work Phone: Start: 04-06-2016 End: 04-06-2016 Follow Up Appt 6 months Follow Up Appt 6 months [facility] Work Phone: Start: 03-17-2016 End: 10-08-2015 Pulmonary Function Test - complete Pulmonary Function Test - complete [facility] Work Phone: Start: 10-08-2015 End: 10-08-2015 Follow Up Appt 6 months Follow Up Appt 6 months [facility] Work Phone: Start: 07-09-2015 End: 04-01-2016 Follow Up Appt 3 months Follow Up Appt 3 months [facility] Work Phone: Start: 03-26-2015 End: 04-01-2016 [facility] Work Phone: Start: 03-26-2015 End: 04-01-2016 Follow Up Appt 3 months Follow Up Appt 3 months [facility] Work Phone: Start: 03-26-2015 End: 04-01-2016 Pulmonary Function Test - complete Pulmonary Function Test - complete [facility] Work Phone: Start: 03-26-2015 End: 04-01-2016 Pulmonary stress test/simple Pulmonary stress testing; simple (eg, 6-minute walk) [facility] Phone: Patient Education CPAP [facility] Phone: Additional Source Comments FOR RECORDS PERTAINING TO PATIENTS WHO ARE OR HAVE BEEN ENROLLED IN A CHEMICAL DEPENDENCY/SUBSTANCEABUSE PROGRAM, SOME INFORMATION MAY BE OMITTED. This clinical summary was aggregated from multiple sources. Caution should be exercised in using it in the provision of clinical care. This summary normalizes information from multiple sources, and as a consequence, information in this document may materially change the coding, format and clinical context of patient data. In addition, data may be omitted in some cases. CLINICAL DECISIONS SHOULD BE BASED ON THE PRIMARY CLINICAL RECORDS. [employer] [facility]. provides no warranty or guarantee of the accuracy or completeness of information in this document.
[2023-04-24 15:09] LABS: Platelet Estimate ADEQUATE (ADEQ)
[2023-04-24 15:10] LABS: Anisocytosis RARE; Macrocytosis RARE; Red Cell Morphology N CHROM NORMAL (NORM C&C)
--- NOTE | 2023-04-24 15:22 | PCM.HP.STD ---
HPI - General General Date of Admission: 04/24/23 Date of Service: 04/24/23 Chief Complaint: Dizziness, L leaning sensation, headache. HPI Narrative The patient is a 77 y/o M w/ PMHx: BPH, COPD, EFFIE, BPPV, Former tobacco use who presents to the [facility] ED on 04/24/22 with history of ongoing dizziness for the last 3 weeks noted to be continuous however it can wax and wane in severity with sensation of feeling off balance worsened binding activities and somewhat improved when he lays down or sits with no specific spinning sensation with noted falling sensation from the left when he attempts to ambulate with a mild headache as well as some mild nausea with no emesis nor any recent fever or chills or URI type symptoms but given ongoing prompted eventual ED evaluation. Does report his previous issues with vertigo have resolved primarily with vestibular therapy and has not had much improvement with meclizine. He does report being seen by his primary care physician with meclizine prescribed however he had worsening symptoms with more severe nausea and emesis per his spouse's report eventually prompting him to be brought into the ED today. Workup in the ED included T96.1, heart rate 72, BP 131/82, respiratory rate 18, 97% on room air, CBC with WBC 7.3, hemoglobin 14.4, platelet 247 with lymphopenia, BMP with chloride 108, BUN/creatinine 25/1.07 otherwise not marked appearing, troponin 8, CT brain with a right cerebellar low-density lesion possibly secondary to infarct versus tumor, EKG with sinus bradycardia with nonspecific ST changes with no acute evidence of ischemia unchanged from previous. In the ED patient was administered 1 L normal saline as well as 2.5 mg p.o. x 1 Valium with no improvement in symptoms of note. [facility] Medical History BPH (benign prostatic hyperplasia) COPD (chronic obstructive pulmonary disease) with emphysema COVID-19 Former tobacco use History of colonic polyps EFFIE (obstructive sleep apnea) Home Medications tamsulosin 0.4 mg capsule 0.4 mg PO DAILY PROSTATE 04/02/19 [History Last Taken 04/24/23] fluticasone propionate 50 mcg/actuation nasal spray,suspension 2 spray intranasal DAILY NASAL CONGESTION #16 grams 04/20/22 [Rx Last Taken Unknown] ipratropium 20 mcg-albuterol 100 mcg/actuation mist for inhalation (Combivent Respimat) 1 puff inhalation Q6H PRN WHEEZING 04/24/23 [History Last Taken Unknown] Allergy/AdvReac Type Severity Reaction Status Date / Time Environmental Allergies: Allergy sneezing Verified 04/24/23 12:57 Uncoded [hay] animal dander AdvReac Mild Other Verified 04/24/23 12:57 oak AdvReac Mild Other Verified 04/24/23 12:57 moxifloxacin HCl AdvReac Nausea Verified 04/24/23 12:57 [From Avelox] prochlorperazine AdvReac Other Verified 04/24/23 12:57 [From Compazine] prochlorperazine edisylate AdvReac Other Verified 04/24/23 12:57 [From Compazine] prochlorperazine maleate AdvReac Other Verified 04/24/23 12:57 [From Compazine] Family History Father Hypertension Kidney disease Mother Hypertension CVA (cerebral vascular accident) Surgical History History of appendectomy History of back surgery History of left knee surgery History of right hemicolectomy Social History (Updated 04/24/23 @ 15:[address] Glenda Araujo MD) household members: spouse Smoking Status: Former smoker pack-years: 63 second hand exposure: No alcohol intake: current alcohol intake frequency: holidays/special occasions only Alcohol type: beer substance use type: does not use caffeine: Yes (3/day) ROS ROS Narrative Admission Review of Systems: CONSTITUTIONAL: No weight loss, fever, chills, + weakness or fatigue. HEENT: Eyes: No visual loss, blurred vision, double vision or yellow sclerae. Ears, Nose, Throat: No hearing loss, sneezing, congestion, runny nose or sore throat. SKIN: No rash or itching, lesions, wounds. CARDIOVASCULAR: No chest pain, chest pressure or chest discomfort, palpitations, edema, orthopnea, syncopal events. RESPIRATORY: No shortness of breath, cough or sputum, wheezing, hemoptysis. GASTROINTESTINAL: + anorexia, nausea, vomiting, No diarrhea, abdominal pain, melena, BRBPR. GENITOURINARY: No dysuria, frequency, urgency or retention. NEUROLOGICAL: + headache, dizziness, imbalance with left leaning, worse with activity attempts. No syncope, paralysis, ataxia, numbness or tingling in the extremities, focal weakness, change in bowel or bladder control, seizure. MUSCULOSKELETAL: + muscle, back pain, joint pain or stiffness. HEMATOLOGIC: No anemia, bleeding or bruising. LYMPHATICS: No enlarged nodes. No history of splenectomy. PSYCHIATRIC: No history of depression or anxiety. ENDOCRINOLOGIC: No reports of sweating, cold or heat intolerance. No polyuria or polydipsia. ALLERGIES: + History of allergic rhinitis. Vital Signs Vital Signs Vital Signs: 04/24/23 12:57 04/24/23 15:03 Temperature 96.1 F L Temperature Source Temporal Pulse Rate 72 Respiratory Rate 18 Respiratory Effort Normal Non-Labored Respiratory Pattern Normal Blood Pressure 131/82 H Blood Pressure Mean 98 Pulse Ox 97 Oxygen Delivery Method Room Air Weight Weight: 174 lb Body Mass Index (BMI) 24.3 Physical Exam Narrative Physical Examination: General: Awake, alert, oriented x 3 and cooperative, seated upright in the ED bed in no apparent distress, notes currently symptoms controlled. Skin: Normal color, normal turgor, no icterus, no cyanosis. HEENT: AT/NC, EOMI, PERRLA, dry MM, no carotid bruits or JVD noted. Lungs: CTA bilaterally, moderate effort, mild decrease BL bases, no rales, ronchi or wheezing. Heart: Mildly bradycardic with regular rhythm; no gallop, rub audible. Abdomen: Soft, NTTP, ND, hyperactive BS, no HSM. Extremities: No cyanosis, clubbing, or edema. Neurological: Patient awake, alert, oriented as noted, cognitive function intact; pupils equally reactive to light and accommodation, cranial nerves grossly normal, moving all 4 extremities, unremarkable Babinski, sensation intact, finger-nose and [id number] appropriate, strength given symptoms moderately to severely globally decreased however no focal deficits, unable to elicit any type of nystagmus, with activity attempts patient left leaning with onset of dizziness sensation without room spinning primarily with getting up although mildly improved since Valium. Psychiatric: Affect appears fatigued otherwise normal, no acute evidence of depressive or anxiety feelings. Results Lab / Micro Data 04/24/23 14:15 04/24/23 14:15 Labs: Laboratory Results - last 24 hr 04/24/23 14:15: WBC 7.3, RBC 4.71, Hgb 14.4, Hct 44.9, MCV 95.3 H, MCH 30.6, MCHC 32.1, RDW Std Deviation 47.1 H, RDW Coeff of [place] 13.4, Plt Count 247, MPV 9.9, Immature Gran % (Auto) 0.400, Neut % (Auto) 88.0 H, Lymph % (Auto) 7.2 L, [place] % (Auto) 3.7, Eos % (Auto) 0.3, Baso % (Auto) 0.4, Absolute Neuts (auto) 6.5, Absolute Lymphs (auto) 0.53 L, Nucleated RBC % 0, Differential Comment SEE COMMENT, Platelet Estimate ADEQUATE, RBC Morphology N CHROM, Anisocytosis RARE, Macrocytosis RARE, Sodium 139, Potassium 4.4, Chloride 108 H, Carbon Dioxide 27.0, Anion Gap 4 L, BUN 25 H, Creatinine 1.07, Estim Creat Clear Calc 62.55, Est GFR (MDRD) Af Amer 86, Est GFR (MDRD) Non-Af 71, BUN/Creatinine Ratio 23.4 H, Glucose 88, Calcium 10.0, Troponin I High Sens 8 Imagaing Rad[address] Imp[address] Brain CT 04/24/23 14:35 IMPRESSION: Right cerebellar low-density lesion could be due to infarct or tumor. Further evaluation with MRI of the brain with contrast is recommended. Electronically Signed: Adarsh Soto MD at 14:57 EST , ADDENDUM: 04/24/23 1514 IMPRESSION: Right cerebellar low-density lesion could be due to infarct or tumor. Further evaluation with MRI of the brain with contrast is recommended. N.B. : The above Results were Read Back by Adarsh Soto MD to Rob Vizcaino DO, and understanding confirmed on 04/24/2023 15:07:09 (ET). Electronically Signed: Adarsh Soto MD at 14:57 EST , Assessment & Plan Assessment/Plan (1) CVA (cerebral vascular accident): PLAN: Plan The patient is a 77 y/o M w/ PMHx: BPH, COPD, EFFIE, BPPV, Former tobacco use who presents to the [facility] ED on 04/24/22 with history of ongoing dizziness for the last 3 weeks noted to be continuous however it can wax and wane in severity with sensation of feeling off balance worsened binding activities and somewhat improved when he lays down or sits with no specific spinning sensation with noted falling sensation from the left when he attempts to ambulate with a mild headache as well as some mild nausea with no emesis. #1. Dizziness, imbalance with left leaning with CT notable for right cerebellar low-density lesion concerning for possible recent CVA versus possible tumor: Will admit to PCU, will obtain MRI Brain with and without in case tumor, CTA Head and Neck, ECHO, PT/OT/Speech/Nutrition evaluation per protocol. Will allow permissive HTN, maintain on asa only given concerns for possible tumor, at least a moderate dose statin in the interim w/ AM FLP, fall precautions. Mag, TSH, FLP, HgbA1c requested. Maintain on fall and aspiration precautions. Continue as needed meclizine. Will request neurology consultation. #2. Chronic COPD: Will temporally hold home inhalers and maintain on ATC duonebs, PRN albuterol, HOB, IS parameters. #3. BPH: We will continue patient on Flomax regimen. #4. Former tobacco use: Encourage continued tobacco cessation. #5. EFFIE: Will maintain on PAP therapy nightly. #6. History colonic polyp: Patient with significant polyp history although noted to be benign but ended up with a right hemicolectomy. #8. DVT prophylaxis: SCDs, hold any chemoprophylaxis given unclear if findings on CT are infarct versus tumor. #9. CODE status: Patient CHANG is his who is present and living will is currently in place. Discussed CODE status at length including difference between FULL code, DNR-CCA and DNR-CC status. Following discussions about the differences in these status, requested Full Code status. Advanced Care Planning Face to Face Time: 16 minutes. Charges/Coding Visit Charges Inpatient E&M: 15690 Init Hosp L3 Procedures Hospitalists Procedures: 02650 Advncd Care Plan 30 Min
--- NOTE | 2023-04-24 15:35 | CT_ITS ---
STUDY: CTA HEAD AND NECK WITH CONTRAST REASON FOR EXAM: Male, 77 years old. Neuro deficit, acute, stroke suspected RADIATION DOSAGE (If Supplied By Facility): CTDIvol = ( 24.33 ) mGy, DLP = ( 788.18 ) mGycm TECHNIQUE: CT angiography was performed with a multi-detector CT scanner. Data acquisition was obtained from the skull base through the vertex following intravenous administration of [id number] 100ML. MIP images were reconstructed from the axial data set. Post-processing of the angiographic images was performed, with multiplanar reformation and 3D reconstruction. Individualized dose optimization techniques were used for this CT. COMPARISON: No relevant priors. FINDINGS: Normal bilateral petrous carotid arteries. Mild calcific plaquing of the right cavernous carotid artery with a normal supraclinoid bifurcation. Normal left cavernous carotid artery with a normal supraclinoid bifurcation. Normal right A1 segments of the anterior cerebral artery. Normal left A1 segments of the anterior cerebral artery. Anterior communicating artery not visualized consistent with normal variant). Normal bilateral A2 segments of the anterior cerebral arteries. Normal right M1 and M2 segments of the middle cerebral arteries, with a normal M1 bifurcation. Normal left M1 and M2 segments of the middle cerebral arteries, with a normal M1 bifurcation. Posterior communicating arteries aren''t visualized consistent with normal variant Normal bilateral vertebral arteries. Normal basilar artery with a normal basilar bifurcation. The visualized bilateral superior cerebellar (SCA) arteries are normal. Normal bilateral P1, P2 and visualized P3 segments of the posterior cerebral arteries. There is no demonstrated aneurysm of the [place] of [place]. AORTIC ARCH: Normal visualized aortic arch. Normal origins of the brachiocephalic, left common carotid, and left subclavian arteries. RIGHT CAROTID ARTERIES: Normal right common carotid artery (CCA). Minor calcific plaquing of the right common carotid bulb. Mild calcific plaquing of the origin of the right internal carotid (ICA) artery without a hemodynamically significant stenosis. Normal visualized cervical portion of the right internal carotid artery. Normal origin of the right external carotid artery (ECA). LEFT CAROTID ARTERIES: Normal left common carotid artery (CCA). Minor calcific plaquing of the left common carotid bulb. Mild calcific plaquing of the origin of the left internal carotid (ICA) artery without a hemodynamically significant stenosis. Normal visualized cervical portion of the left internal carotid artery. Normal origin of the left external carotid artery (ECA). VERTEBRAL ARTERIES: Normal bilateral vertebral arteries. CT/CTA Head AND Neck W/ Contrast IMPRESSION: Mild atherosclerotic changes without evidence for hemodynamically significant stenosis or vascular occlusion within the head or neck. Electronically Signed: Casey Coburn MD at 16:30 EST ,
[2023-04-24 16:15] LABS: Magnesium 2.3 mg/dL (1.6-2.6)
--- NOTE | 2023-04-24 16:51 | MRI_ITS ---
STUDY: MRI BRAIN WITH AND WITHOUT CONTRAST REASON FOR EXAM: Male, 77 years old. CVA versus tumor on CT TECHNIQUE: Standardized multiplanar fat and water weighted pulse sequences were obtained. IV 15 cc clariscan was administered for the contrast portion of the examination. COMPARISON: CT of the brain April 24, 2023 FINDINGS: Mild atrophy and periventricular white matter ischemic changes without mass effect or restricted diffusion.. Normal bilateral basal ganglia. Normal thalami. There is no extra-axial fluid accumulation. Normal flow voids within the major intracranial circulation suggesting patency by spin echo criteria. Normal venous enhancement. There is no enhancing intra-axial or extra-axial abnormality. Normal sella turcica, pituitary gland, infundibular stalk, optic chiasm and hypothalamus. Normal tectal plate and pineal gland. Normal midbrain, eder and medulla. There are edematous changes in the right cerebellar hemisphere in association with a large heterogeneously enhancing thick-walled mass measuring approximately 3.6 x 2.95 x 2.4 cm producing mass effect upon the fourth ventricle which is displaced slightly without evidence for obstructive hydrocephalus at this time. There is also mild mass effect upon the lower eder and medulla Normal basal cisterns. Normal bilateral temporal bones. Normal bilateral internal auditory canals. Postsurgical changes of the orbits.. Normal visualized paranasal sinuses. Normal calvarium and skull base. Normal visualized soft tissue structures. Normal visualized upper cervical spine. 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 Mild atrophy and periventricular white matter ischemic changes Electronically Signed: Casey Coburn MD at 19:50 EST ,
--- NOTE | 2023-04-24 16:51 | ECHOD_ITS ---
Reason For Study: TIA/CVA Procedure This was a 2D Doppler, Color Flow transthoracic echocardiogram. Exam performed portable in patient room. Left Ventricle Normal LV size. Left ventricular systolic function is normal. The estimated ejection fraction is 55 %. No regional wall motion abnormalities noted. Right Ventricle Normal RV size. Normal systolic function. Atria Normal left atrium. Normal right atrium. Bubble contrast study negative for right to left interatrial shunt. Mitral Valve Normal mitral valve. Tricuspid Valve Normal tricuspid valve. Mild (1+) tricuspid valve insufficiency. Pulmonary artery systolic pressure is 38 mmHg. Aortic Valve Normal aortic valve. Trisinus/trileaflet aortic valve. Pulmonic Valve Normal pulmonic valve. Great Vessels Moderately dilated aortic root. The pulmonary artery is normal size. Normal inferior vena cava. Pericardium/Pleural No pericardial effusion. Medication Performed a rapid injection of agitated mix of 9 cc saline and 1cc air to assess for atrial septal defect. MMode/2D Measurements & Calculations LVIDd: 5.2 cm IVSd: 1.2 cm Ao root diam: 4.7 cm LVIDs: 3.0 cm LVPWd: 0.88 cm LA dimension: 4.5 cm FS: 41.7 % LAV(MOD-bp): 67.8 ml LA A4 area: 21.9 cm2 RA A4 area: 20.2 cm2 LAV(MOD-bp) Indexed: 33.8 ml/m2 LAV(MOD-sp2): 67.7 ml LAV(MOD-sp4): 59.3 ml Time Measurements MV dec time: 0.20 sec Doppler Measurements & Calculations MV E max rehan: 77.9 cm/sec Lat Peak E' Rehan: 10.2 cm/sec Med Peak E' Rehan: 9.1 cm/sec MV A max rehan: 76.4 cm/sec E/E' lat: 7.7 E/E' med: 8.6 MV E/A: 1.0 MV V2 max: 78.6 cm/sec MV P1/2t max rehan: 76.8 cm/sec Ao V2 max: 132.3 cm/sec MV max P.5 mmHg MV P1/2t: 66.5 msec Ao max P.0 mmHg MV V2 mean: 42.9 cm/sec MV dec slope: 338.4 cm/sec2 Ao V2 mean: 85.0 cm/sec MV mean P.86 mmHg Ao mean P.3 mmHg MV V2 VTI: 30.0 cm MVA(P1/2t): 3.3 cm2 Ao V2 VTI: 25.2 cm AV (velocity ratio): 1.1 LV V1 max: 137.1 cm/sec PA V2 max: 99.9 cm/sec TR max rehan: 293.3 cm/sec LV V1 max P.5 mmHg TR max P.4 mmHg LV V1 mean P.7 mmHg LV V1 mean: 71.6 cm/sec LV V1 VTI: 28.0 cm ECHO/Echo Complete Interpretation Summary Normal LV size. Left ventricular systolic function is normal. The estimated ejection fraction is 55 %. Moderately dilated aortic root. Mild (1+) tricuspid valve insufficiency. Ordering Physician: Glenda Araujo Referring Physician: Apolinar Lange Performed By: Alexis Steen RCS
[2023-04-24] MEDS: Ondansetron 4 MG/2 ML Vial IV (17:31)
--- NOTE | 2023-04-24 18:02 | NURSING ---
Pt got to the unit. MRI called saying they were ready for the pt. RN gave zofran before pt left for MRI.
[2023-04-24] MEDS: 0.9% Normal Saline (1000mL) 1,000 ML 100 ML IV (19:53)
[2023-04-24] MEDS: 0.9% Saline Lock 10 ML Syringe IV (19:53)
[2023-04-25 01:34] VITALS: BMI 24.5
[2023-04-25 01:50] VITALS: BMI 24.9
[2023-04-25 03:20] VITALS: BP 131/78; PULSE 64; RESP 18; TEMP 36.4; O2SAT 91
[2023-04-25 05:55] VITALS: BP 133/80; PULSE 55; RESP 18; TEMP 36.7; O2SAT 97
[2023-04-25] MEDS: Ondansetron 4 MG/2 ML Vial 8 MG IV ×2 (05:57→14:17)
[2023-04-25] MEDS: 0.9% Saline Lock 10 ML Syringe IV ×2 (05:57→14:18)
[2023-04-25 08:00] VITALS: O2SAT 99
[2023-04-25 08:08] LABS: Absolute Lymphocyte Count 0.79 X10^3/uL (0.83-4.51); Absolute Neutrophil Count 6.1 X10^3/uL (2.0-7.7); Basophil# 0.03 X10^3/uL; Basophil% 0.4 % (0-1); Eosinophil# 0.03 X10^3/uL; Eosinophils% 0.4 % (0-5); Hematocrit 39.5 % (40-54); Hemoglobin 12.7 g/dL (13.0-16.5); Lymphocyte # 0.79 X10^3/ul (0.83-4.51); Lymphocyte % 10.6 % (19-41); Mean Corp Hgb Conc 32.2 g/dL (32-36); Mean Corpuscular Hgb 30.9 pg (27.0-32.0); Mean Corpuscular Volume 96.1 fL (80-94); Mean Platelet Vol. 9.6 fl (6.2-12.0); Monocyte# 0.43 X10^3/uL; Monocyte% 5.8 % (0-10); NRBC Flagged by Analyzer 0 % (0-5); Neutrophil # 6.14 X10^3/uL (2.7-7.7); Neutrophil % 82.4 % (47-70); Platelet Count 237 K/mm3 (150-450); RBC Distribution Width CV 13.4 % (11.6-14.6); RBC Distribution Width SD 47.8 fl (35.1-43.9); Red Blood Count 4.11 M/mm3 (4.6-6.2); White Blood Count 7.5 K/mm3 (4.4-11.0)
--- NOTE | 2023-04-25 08:50 | PN.HOSP_ITS ---
Reason for Visit Reason for Visit: Diagnoses Cerebral infarction, unspecified (04/24/23) Objective Data Objective Data Vital Signs: Vital Signs Temp Pulse Resp BP Pulse Ox O2 Del Method FiO2 98.1 F 55 L 18 133/80 H 99 Room Air 21 04/25/23 05:55 04/25/23 05:55 04/25/23 05:55 04/25/23 05:55 04/25/23 08:00 04/25/23 08:00 04/24/23 22:45 Oxygen Delivery Method Room Air Weight: 178 lb 12.718 oz Body Mass Index (BMI) 24.9 Intake & Output: Intake and Output for Last 24 Hours 04/23/23 04/24/23 04/25/23 23:59 23:59 23:59 Intake Total 1000 / 1000 1000 / 1000 Balance 1000 / 1000 1000 / 1000 Lab / Micro Data 04/25/23 07:55 04/24/23 14:15 Labs: Laboratory Results - last 24 hr 04/24/23 14:15: WBC 7.3, RBC 4.71, Hgb 14.4, Hct 44.9, MCV 95.3 H, MCH 30.6, MCHC 32.1, RDW Std Deviation 47.1 H, RDW Coeff of Linwood 13.4, Plt Count 247, MPV 9.9, Immature Gran % (Auto) 0.400, Neut % (Auto) 88.0 H, Lymph % (Auto) 7.2 L, Tillman % (Auto) 3.7, Eos % (Auto) 0.3, Baso % (Auto) 0.4, Absolute Neuts (auto) 6.5, Absolute Lymphs (auto) 0.53 L, Nucleated RBC % 0, Differential Comment SEE COMMENT, Platelet Estimate ADEQUATE, RBC Morphology N CHROM, Anisocytosis RARE, Macrocytosis RARE, Sodium 139, Potassium 4.4, Chloride 108 H, Carbon Dioxide 27.0, Anion Gap 4 L, BUN 25 H, Creatinine 1.07, Estim Creat Clear Calc 62.55, Est GFR (MDRD) Af Amer 86, Est GFR (MDRD) Non-Af 71, BUN/Creatinine Ratio 23.4 H , Glucose 88, Calcium 10.0, Magnesium 2.3, Troponin I High Sens 8 04/25/23 07:55: WBC 7.5, RBC 4.11 L, Hgb 12.7 L, Hct 39.5 L, MCV 96.1 H, MCH 30.9, MCHC 32.2, RDW Std Deviation 47.8 H, RDW Coeff of Linwood 13.4, Plt Count 237, MPV 9.6, Immature Gran % (Auto) 0.400, Neut % (Auto) 82.4 H, Lymph % (Auto) 10.6 L, Tillman % (Auto) 5.8, Eos % (Auto) 0.4, Baso % (Auto) 0.4, Absolute Neuts (auto) 6.1, Absolute Lymphs (auto) 0.79 L, Nucleated RBC % 0 Radiography Diagnostic Testing: Radiology Impression Brain CT 04/24/23 14:35 IMPRESSION: Right cerebellar low-density lesion could be due to infarct or tumor. Further evaluation with MRI of the brain with contrast is recommended. Electronically Signed: Adarsh Soto MD at 14:57 EST , ADDENDUM: 04/24/23 1514 IMPRESSION: Right cerebellar low-density lesion could be due to infarct or tumor. Further evaluation with MRI of the brain with contrast is recommended. N.B. : The above Results were Read Back by Adarsh Soto MD to Rob Vizcaino DO, and understanding confirmed on 04/24/2023 15:07:09 (ET). Electronically Signed: Adarsh Soto MD at 14:57 EST , Head/Neck CTA 04/24/23 15:35 IMPRESSION: Mild atherosclerotic changes without evidence for hemodynamically significant stenosis or vascular occlusion within the head or neck. 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 Mild atrophy and periventricular white matter ischemic changes Electronically Signed: Casey Coburn MD at 19:50 EST Reading Location ID and State: [facility] / [place] Tel , Service support , Assessment & Plan Assessment/Plan (1) CVA (cerebral vascular accident): PLAN: Plan The patient is a 77 y/o M Came to ED for dizziness for 3 weeks, waxing and waning in quality worse on standing up. Also complained of off balance but no vertigo. On walking he felt like falling to the left. Patient also had mild headache but no chest pain or shortness of breath, visual or hearing changes. No fever or chills. #1. Dizziness, imbalance with left leaning with CT notable for right cerebellar low-density lesion concerning for possible recent CVA versus possible tumor: Will admit to PCU, will obtain MRI Brain with and without in case tumor, CTA Head and Neck, ECHO, PT/OT/Speech/Nutrition evaluation per protocol. Will allow permissive HTN, maintain on asa only given concerns for possible tumor, at least a moderate dose statin in the interim w/ AM FLP, fall precautions. Mag, TSH, FLP, HgbA1c requested. Maintain on fall and aspiration precautions. Continue as needed meclizine. Will request neurology consultation. #2. Chronic COPD: Will temporally hold home inhalers and maintain on ATC duonebs, PRN albuterol, HOB, IS parameters. #3. BPH: We will continue patient on Flomax regimen. #4. Former tobacco use: Encourage continued tobacco cessation. #5. EFFIE: Will maintain on PAP therapy nightly. #6. History colonic polyp: Patient with significant polyp history although noted to be benign but ended up with a right hemicolectomy. #8. DVT prophylaxis: SCDs, hold any chemoprophylaxis given unclear if findings on CT are infarct versus tumor. #9. CODE status: Patient HCPOA is his who is present and living will is currently in place. Discussed CODE status at length including difference between FULL code, DNR-CCA and DNR-CC status. Following discussions about the differences in these status, requested Full Code status. Advanced Care Planning Face to Face Time: 16 minutes.
--- NOTE | 2023-04-25 08:50 | PCM.PN.HOSP ---
Reason for Visit Reason for Visit: Diagnoses Cerebral infarction, unspecified (04/24/23) Objective Data Objective Data Vital Signs: Vital Signs Temp Pulse Resp BP Pulse Ox O2 Del Method FiO2 98.1 F 55 L 18 133/80 H 99 Room Air 21 04/25/23 05:55 04/25/23 05:55 04/25/23 05:55 04/25/23 05:55 04/25/23 08:00 04/25/23 08:00 04/24/23 22:45 Oxygen Delivery Method Room Air Weight: 178 lb 12.718 oz Body Mass Index (BMI) 24.9 Intake & Output: Intake and Output for Last 24 Hours 04/23/23 04/24/23 04/25/23 23:59 23:59 23:59 Intake Total 1000 / 1000 1000 / 1000 Balance 1000 / 1000 1000 / 1000 Lab / Micro Data 04/25/23 07:55 04/25/23 07:55 Labs: Laboratory Results - last 24 hr 04/24/23 14:15: WBC 7.3, RBC 4.71, Hgb 14.4, Hct 44.9, MCV 95.3 H, MCH 30.6, MCHC 32.1, RDW Std Deviation 47.1 H, RDW Coeff of Linwood 13.4, Plt Count 247, MPV 9.9, Immature Gran % (Auto) 0.400, Neut % (Auto) 88.0 H, Lymph % (Auto) 7.2 L, [place]hel % (Auto) 3.7, Eos % (Auto) 0.3, Baso % (Auto) 0.4, Absolute Neuts (auto) 6.5, Absolute Lymphs (auto) 0.53 L, Nucleated RBC % 0, Differential Comment SEE COMMENT, Platelet Estimate ADEQUATE, RBC Morphology N CHROM, Anisocytosis RARE, Macrocytosis RARE, Sodium 139, Potassium 4.4, Chloride 108 H, Carbon Dioxide 27.0, Anion Gap 4 L, BUN 25 H, Creatinine 1.07, Estim Creat Clear Calc 62.55, Est GFR (MDRD) Af Amer 86, Est GFR (MDRD) Non-Af 71, BUN/Creatinine Ratio 23.4 H, Glucose 88, Calcium 10.0, Magnesium 2.3, Troponin I High Sens 8 04/25/23 07:55: WBC 7.5, RBC 4.11 L, Hgb 12.7 L, Hct 39.5 L, MCV 96.1 H, MCH 30.9, MCHC 32.2, RDW Std Deviation 47.8 H, RDW Coeff of Linwood 13.4, Plt Count 237, MPV 9.6, Immature Gran % (Auto) 0.400, Neut % (Auto) 82.4 H, Lymph % (Auto) 10.6 L, [place]hel % (Auto) 5.8, Eos % (Auto) 0.4, Baso % (Auto) 0.4, Absolute Neuts (auto) 6.1, Absolute Lymphs (auto) 0.79 L, Nucleated RBC % 0 Radiography Diagnostic Testing: Radiology Impression Brain CT 04/24/23 14:35 IMPRESSION: Right cerebellar low-density lesion could be due to infarct or tumor. Further evaluation with MRI of the brain with contrast is recommended. Electronically Signed: Adarsh Soto MD at 14:57 EST , ADDENDUM: 04/24/23 1514 IMPRESSION: Right cerebellar low-density lesion could be due to infarct or tumor. Further evaluation with MRI of the brain with contrast is recommended. N.B. : The above Results were Read Back by Adarsh Soto MD to Rob Vizcaino DO, and understanding confirmed on 04/24/2023 15:07:09 (ET). Electronically Signed: Adarsh Soto MD at 14:57 EST , Head/Neck CTA 04/24/23 15:35 IMPRESSION: Mild atherosclerotic changes without evidence for hemodynamically significant stenosis or vascular occlusion within the head or neck. 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 Mild atrophy and periventricular white matter ischemic changes Electronically Signed: Casey Coburn MD at 19:50 EST Reading Location ID and State: [address] [place] [address] Tel , Service support , Physical Exam Narrative Seen and examined. Patient admitted with dizziness, loss of balance for 3 weeks, disequilibrium with deviation to 1 side. Denies vertigo Physical exam: General: Alert, Oriented x3, Cooperative HEENT: Atraumatic, PERRLA, EOMI, Normocephalic Oral: No Gingival or Mucosal Lesions/ Ulcerations Neck: Supple, No JVD, Negative Carotid Bruits Lungs: Air entry diminished in bilateral lung bases. No crepitation/rhonchi Cardiovascular: Regular rate, Regular Rhythm, Normal S1, Normal S2, No murmurs Abdomen: Bowel Sounds Present, Soft, Non Tender, Non-Distended : No renal angle tenderness. No suprapubic tenderness. Extremities: No edema, Capillary Refill Less than 3 Seconds Skin: No rashes, No breakdown Musculoskeletal: No Tenderness to Palpation of Joints or Extremities. Muscle strength 5/5 at knee joints and hip joints. Neurological: Did not check the gait. Cranial nerves II-XII grossly intact, DTR 2+/4. No loss of vision.Gross sensation to light touch normal bilaterally. No dysmetria on [id number] and [id number] test. Plantar reflex downgoing, Babinski sign negative. Psych/Mental Status: Normal Affect, Appropriate. Assessment & Plan Assessment/Plan (1) CVA (cerebral vascular accident): PLAN: Plan The patient is a 77 y/o M Came to ED for dizziness for 3 weeks, waxing and waning in quality worse on standing up. Also complained of off balance but no vertigo. On walking he felt like falling to the left. Patient also had mild headache but no chest pain or shortness of breath, visual or hearing changes. No fever or chills. #1. 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 Furthermore, patient had brain MRI which showed solitary heterogeneously enhancing thick-walled mass in the right cerebellar hemisphere consistent with neoplasm mildly compressing brainstem and fourth ventricle without evidence of obstructive hydrocephalus. 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 [facility] teleneurologist already consulted. I talked to Dr. Monique Aragon, [facility] neurologist and neurosurgeon consult is needed therefore patient is in the process of transfer to [facility] for evaluation by neurosurgeon and further management plan. CT head and neck shows mild atherosclerotic changes without evidence for hemodynamically significant stenosis or occlusion within the head or neck. 2D echo was also done, EF 55% with LV lead function normal. Mild TR. #2. COPD: No exacerbation. No shortness of breath or respiratory distress. On DuoNeb as needed. Flonase nasal spray. #3. BPH: continue patient on Flomax regimen. #4. Former tobacco use: Encourage continued tobacco cessation. #5. EFFIE: maintain on PAP therapy nightly. #6. History colonic polyp: Patient with significant polyp history although noted to be benign but ended up with a right hemicolectomy. #8. DVT prophylaxis: SCDs, hold any chemoprophylaxis given unclear if findings on CT are infarct versus tumor. #9. CODE status: Patient CHANG is his who is present and living will is currently in place. Discussed CODE status at length including difference between FULL code, DNR-CCA and DNR-CC status. Following discussions about the differences in these status, requested Full Code status. Clinical Impression(s) from Imaging Studies Brain CT 04/24/23 14:35 IMPRESSION: Right cerebellar low-density lesion could be due to infarct or tumor. Further evaluation with MRI of the brain with contrast is recommended. Head/Neck CTA 04/24/23 15:35 IMPRESSION: Mild atherosclerotic changes without evidence for hemodynamically significant stenosis or vascular occlusion within the head or neck. Brain MRI 04/24/23 16:51 IMPRESSION: Solitary heterogeneously enhancing thick-walled mass in the right cerebellar hemisphere consistent with neoplasm mildly compressing the brainstem and fourth ventricle without evidence for obstructive hydrocephalus at this time. 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 Mild atrophy and periventricular white matter ischemic changes Echocardiogram 04/24/23 16:51 Interpretation Summary Normal LV size. Left ventricular systolic function is normal. The estimated ejection fraction is 55 %. Moderately dilated aortic root. Mild (1+) tricuspid valve insufficiency. Charges/Coding Addendum Addendum: Total time of the visit including total time spent in counseling or coordination of care, (more than 50% of the total time, spent in obtaining medical information from nurses and other ancillary care providers,explaining to the patient about labs, imaging, diagnosis and management of active complex medical conditions), discussion of the MRI findings, cerebellar tumor its effects prognosis, discussion with neurologist [facility], review of labs and imaging is 40 minutes. Visit Charges Inpatient E&M: 31529 Subs Hosp L3
[2023-04-25 08:55] LABS: ALB/GLOB Ratio 0.8 RATIO (0.9-2.4); AST(SGOT) 12 U/L (15-37); Alanine Aminotransfer ALT/SGPT 12 U/L (16-61); Alkaline Phosphatase 69 U/L (45-117); Anion Gap 8 (5-15); BUN 24 mg/dL (7-18); BUN/Creat Ratio 25.6 RATIO (10-20); Calcium,Total 9.4 mg/dL (8.5-10.1); Chloride 109 mmol/L (98-107); Cholesterol 138 mg/dL (200); Creatinine, Serum 0.94 mg/dL (0.70-1.30); EST Glomerular Filtration Rate 83 mL/min (>60); Est Glom Filt Rate - Afr Amer 100 mL/min (>60); Estimated Creatinine Clearance 71.21 ml/min; Globulin 3.7 g/dL (2.2-4.2); Glucose 76 mg/dL (74-106); High Density Lipoprotein 42 mg/dL; Potassium 4.2 mmol/L (3.5-5.1); Protein, Total 6.7 g/dL (6.4-8.2); Sodium Level 140 mmol/L (136-145); Thyroid Stim Hormone (TSH) 0.61 uIU/mL (0.358-3.74); Triglycerides 87 mg/dL; Very Low Density Lipoprotein 17 mg/dL (5-40)
[2023-04-25] MEDS: Famotidine 20 MG Tablet PO ×2 (09:22→21:01)
[2023-04-25] MEDS: Aspirin 81 MG TAB.CHEW PO (09:23)
[2023-04-25 09:26] VITALS: BP 153/74; PULSE 60; RESP 14; TEMP 37; O2SAT 95
[2023-04-25] MEDS: LORazepam 2 MG/ML Syringe 0.5 MG IV ×2 (09:33→17:20)
[2023-04-25 10:21] LABS: Hemoglobin A1c 5.3 % (3.8-5.6)
--- NOTE | 2023-04-25 10:35 | CASEMGMT ---
RN CM Face to Face with patient for initial transition planning/care coordination assessment. RN CM introduced self and role at [facility]. Patient lying in bed, alert and oriented. Patient willing to participate in assessment and is able to answer all questions appropriately. Care providers, pharmacy, and demographics verified. Patient wishes to discharge home, denies need for home health at this time. Patient states he has no further needs or concerns at this time. CM to follow for discharge planning needs that may arise. PCP: Nazario Specialists: Luis [employer] cutter machine Preferred Pharmacy: [facility] Insurance: [employer] Prescription Benefit: yes Living Will/HPOA: yes, Hailee Cortez LNOK: Living Arrangements: Patient lives with in a 2 story home. Patient is independent and able to ambulate stairs. Transportation: self, DME/HHC: Patient has cpap and pulse ox at home. No previous HHC or SNF Disposition Plan: Patient to discharge home with family support and follow-up plans in place. Delores MCCULLOUGH, RN, CM
--- NOTE | 2023-04-25 12:22 | NEURO.CONS ---
Assessment and Plan: Neuro Assessment/Plan CINDY VIDES is a 77 M being evaluated by Teleneurology for dizziness,nausea and loss of balance that started since [place] and has been off and on since that time. His symptoms got worse for the last 2-3 days and therefore seeked medical attention.CT head showed hypodensity over right cerebellar region concerning for stroke vs tumor but MRI brain confirmed tumor pattern. At this point,not causing obstructive hydrocephalous however given decent size,needs close surveillance. 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 Transfer to [facility] for the following reasons: neurosurgical evaluation for right cerebellar mass. I personally attended this patient and spent a total time of 40 minutes evaluating this patient including clinical assessment, review of chart, medical history imaging, and determining appropriate treatment and workup. Monique Aragon MD [facility] Neurology Department HPI Consult Data Date of Consult: 04/25/23 HPI Narrative Reason for Consultation: Dizziness HPI Narrative: CINDY VIDES, is a 77 M who presents with Dizziness that he describes as lightheadedness and difficulty with balance when stands up that started on [place] and progressively getting worse since that time and has been on and off. His symptoms got worse since last 2 days and decided to come to hospital for further evaluation. CT head showed hypodensity over right cerebellar region concerning for stroke vs tumor but MRI brain confirmed tumor pattern. At this point,not causing obstructive hydrocephalous however given decent size,needs close surveillance. CT angio wnl. [facility] Medical History BPH (benign prostatic hyperplasia) COPD (chronic obstructive pulmonary disease) with emphysema COVID-19 Former tobacco use History of colonic polyps EFFIE (obstructive sleep apnea) Home Medications tamsulosin 0.4 mg capsule 0.4 mg PO DAILY PROSTATE 04/02/19 [History Last Taken 04/24/23] fluticasone propionate 50 mcg/actuation nasal spray,suspension 2 spray intranasal DAILY NASAL CONGESTION #16 grams 04/20/22 [Rx Last Taken Unknown] ipratropium 20 mcg-albuterol 100 mcg/actuation mist for inhalation (Combivent Respimat) 1 puff inhalation Q6H PRN WHEEZING 04/24/23 [History Last Taken Unknown] Allergy/AdvReac Type Severity Reaction Status Date / Time Environmental Allergies: Allergy sneezing Verified 04/24/23 12:57 Uncoded [hay] animal dander AdvReac Mild Other Verified 04/24/23 12:57 oak AdvReac Mild Other Verified 04/24/23 12:57 moxifloxacin HCl AdvReac Nausea Verified 04/24/23 12:57 [From Avelox] prochlorperazine AdvReac Other Verified 04/24/23 12:57 [From Compazine] prochlorperazine edisylate AdvReac Other Verified 04/24/23 12:57 [From Compazine] prochlorperazine maleate AdvReac Other Verified 04/24/23 12:57 [From Compazine] Family History Father Hypertension Kidney disease Mother Hypertension CVA (cerebral vascular accident) Surgical History History of appendectomy History of back surgery History of left knee surgery History of right hemicolectomy Social History (Updated 04/24/23 @ 15:[address] Glenda Araujo MD) household members: spouse Smoking Status: Former smoker pack-years: 63 second hand exposure: No alcohol intake: current alcohol intake frequency: holidays/special occasions only Alcohol type: beer substance use type: does not use caffeine: Yes (3/day) Vital Signs Vital Signs Vital Signs: 04/24/23 12:57 04/24/23 15:03 04/24/23 15:21 Temperature 96.1 F L Temperature Source Temporal Pulse Rate 72 Pulse Rate [Lying] 58 L Pulse Rate [Sitting (for 1 minute prior to obtaining)] 68 Pulse Rate [Standing (for 1 minute prior to obtaining)] 63 Respiratory Rate 18 Respiratory Effort Normal Non-Labored Respiratory Depth Respiratory Pattern Normal Blood Pressure 131/82 H Blood Pressure [Lying] 138/71 H Blood Pressure [Sitting (for 1 minute prior to obtaining)] 137/84 H Blood Pressure [Standing (for 1 minute prior to obtaining)] 133/87 H Blood Pressure Mean 98 Blood Pressure Mean [Lying] 93 Blood Pressure Mean [Sitting (for 1 minute prior to obtaining)] 101 Blood Pressure Mean [Standing (for 1 minute prior to obtaining)] 102 Blood Pressure Source Blood Pressure Position Blood Pressure Location Pulse Ox 97 Oxygen Delivery Method Room Air Fraction of Inspired Oxygen (FIO2) 04/24/23 15:54 04/24/23 16:55 04/24/23 19:50 Temperature 97.6 F L 97.5 F L 98.1 F Temperature Source Oral Oral Pulse Rate 58 L 63 60 Pulse Rate [Lying] Pulse Rate [Sitting (for 1 minute prior to obtaining)] Pulse Rate [Standing (for 1 minute prior to obtaining)] Respiratory Rate 20 H 19 H 18 Respiratory Effort Respiratory Depth Respiratory Pattern Blood Pressure 149/73 H 146/81 H 153/73 H Blood Pressure [Lying] Blood Pressure [Sitting (for 1 minute prior to obtaining)] Blood Pressure [Standing (for 1 minute prior to obtaining)] Blood Pressure Mean 98 102 99 Blood Pressure Mean [Lying] Blood Pressure Mean [Sitting (for 1 minute prior to obtaining)] Blood Pressure Mean [Standing (for 1 minute prior to obtaining)] Blood Pressure Source Monitor Blood Pressure Position Semi-Fowlers Blood Pressure Location Right Arm Pulse Ox 98 98 97 Oxygen Delivery Method Room Air Room Air Fraction of Inspired Oxygen (FIO2) 04/24/23 19:10 04/24/23 22:00 04/24/23 23:50 Temperature 98.1 F Temperature Source Oral Pulse Rate 69 Pulse Rate [Lying] Pulse Rate [Sitting (for 1 minute prior to obtaining)] Pulse Rate [Standing (for 1 minute prior to obtaining)] Respiratory Rate 18 Respiratory Effort Normal Non-Labored Respiratory Depth Normal Respiratory Pattern Normal Blood Pressure 170/92 H Blood Pressure [Lying] Blood Pressure [Sitting (for 1 minute prior to obtaining)] Blood Pressure [Standing (for 1 minute prior to obtaining)] Blood Pressure Mean 118 Blood Pressure Mean [Lying] Blood Pressure Mean [Sitting (for 1 minute prior to obtaining)] Blood Pressure Mean [Standing (for 1 minute prior to obtaining)] Blood Pressure Source Blood Pressure Position Blood Pressure Location Pulse Ox 98 94 Oxygen Delivery Method Room Air Room Air CPAP Fraction of Inspired Oxygen (FIO2) 04/24/23 22:45 04/25/23 02:17 04/25/23 03:20 Temperature 97.5 F L Temperature Source Oral Pulse Rate 64 Pulse Rate [Lying] Pulse Rate [Sitting (for 1 minute prior to obtaining)] Pulse Rate [Standing (for 1 minute prior to obtaining)] Respiratory Rate 18 Respiratory Effort Respiratory Depth Respiratory Pattern Normal Normal Blood Pressure 131/78 H Blood Pressure [Lying] Blood Pressure [Sitting (for 1 minute prior to obtaining)] Blood Pressure [Standing (for 1 minute prior to obtaining)] Blood Pressure Mean 95 Blood Pressure Mean [Lying] Blood Pressure Mean [Sitting (for 1 minute prior to obtaining)] Blood Pressure Mean [Standing (for 1 minute prior to obtaining)] Blood Pressure Source Blood Pressure Position Blood Pressure Location Pulse Ox 91 Oxygen Delivery Method CPAP Fraction of Inspired Oxygen (FIO2) 21 04/25/23 03:20 04/25/23 05:55 04/25/23 08:00 Temperature 98.1 F Temperature Source Oral Pulse Rate 55 L Pulse Rate [Lying] Pulse Rate [Sitting (for 1 minute prior to obtaining)] Pulse Rate [Standing (for 1 minute prior to obtaining)] Respiratory Rate 18 Respiratory Effort Normal Non-Labored Respiratory Depth Normal Respiratory Pattern Normal Blood Pressure 133/80 H Blood Pressure [Lying] Blood Pressure [Sitting (for 1 minute prior to obtaining)] Blood Pressure [Standing (for 1 minute prior to obtaining)] Blood Pressure Mean 97 Blood Pressure Mean [Lying] Blood Pressure Mean [Sitting (for 1 minute prior to obtaining)] Blood Pressure Mean [Standing (for 1 minute prior to obtaining)] Blood Pressure Source Blood Pressure Position Blood Pressure Location Pulse Ox 97 99 Oxygen Delivery Method CPAP CPAP Room Air Fraction of Inspired Oxygen (FIO2) 04/25/23 09:26 Temperature 98.6 F Temperature Source Oral Pulse Rate 60 Pulse Rate [Lying] Pulse Rate [Sitting (for 1 minute prior to obtaining)] Pulse Rate [Standing (for 1 minute prior to obtaining)] Respiratory Rate 14 Respiratory Effort Respiratory Depth Respiratory Pattern Blood Pressure 153/74 H Blood Pressure [Lying] Blood Pressure [Sitting (for 1 minute prior to obtaining)] Blood Pressure [Standing (for 1 minute prior to obtaining)] Blood Pressure Mean 100 Blood Pressure Mean [Lying] Blood Pressure Mean [Sitting (for 1 minute prior to obtaining)] Blood Pressure Mean [Standing (for 1 minute prior to obtaining)] Blood Pressure Source Monitor Blood Pressure Position Semi-Fowlers Blood Pressure Location Left Arm Pulse Ox 95 Oxygen Delivery Method Room Air Fraction of Inspired Oxygen (FIO2) Weight Weight: 81.1 kg Body Mass Index (BMI) 24.9 NIHSS NIHSS Nursing Documentation NIHSS Nursing Documentation: NIHSS: Ischemic Stroke/TIA Start: 04/24/23 16:51 Text: For PCU Patients: NIH and Neuro Check every 4 Status: Complete hours and PRN Freq: [id number] Protocol: Activity Type Activity Date Activity User E-sign Co-sign Detail Recorded Client Recorded Date Recorded By Document 04/24/23 23:50 MM Desktop 04/24/23 23:52 MM 04/24/23 23:50 NIH Stroke Scale [NIHSS] A score of 0 is normal or asymptomatic . Total possible score is 42. Inpatient: RN or Physician to activate a stroke alert for onset of new stroke symptoms or with NIHSS increase >/= 3 points. Following change in neurological status, NIHSS will be performed per physician order or more frequently PRN. -1a. Level of Consciousness Alert; keenly responsive -1b. LOC Questions Answers BOTH questions correctly. -1c. LOC Commands Performs both tasks correctly . -2. Best Gaze Normal -3. Visual No visual loss -4. Facial Palsy Normal symmetrical movements -5a. Left Arm No drift; arm holds 90 (or 45 ) degrees for full 10 seconds -5b. Right Arm No drift; arm holds 90 (or 45 ) degrees for full 10 seconds -6a. Left Leg No drift; leg holds 30-degree position for full 5 seconds -6b. Right Leg No drift; leg holds 30-degree position for full 5 seconds -7. Limb Ataxia Absent -8. Sensory Normal; no sensory loss -9. Best Language No aphasia; normal -10. Dysarthria Normal -11. Extinction and Inattention No abnormality -Total 0 Query Text:A score of 0 is normal or asymptomatic. Total possible score is 42 . ED: Notify Physician for NIHSS increase by > / = 3 points. Inpatient: RN or Physician to activate a stroke alert for NIHSS increase of > / = 3 points. Coma Scale [Assess] -Eye Opening Spontaneous -Motor Obeys Commands -Verbal Oriented [Total] -Coma Scale Total 15 Physical Exam Neuro Neuro Narrative: -? General: Laying comfortably in bed; in no acute distress. -? HENT: Normal oropharynx and mucosa. Normal external appearance of ears and nose. Exophthalmos. -? Neck: Supple, no pain or tenderness -? CV:? No peripheral edema. -? Pulmonary:? Normal respiratory effort. -? Ext: No cyanosis, edema, or deformity -? Skin: No rash. Normal palpation of skin.? -? Musculoskeletal: full range of motion; no joint tenderness. Normal digits and nails by inspection. No clubbing. -? NEURO: -? Mental Status: The patient was alert and oriented to time, place, and person. Normal recent/remote memory, concentration, and general fund of knowledge. -? Language: speech is intact.? Naming, repetition, fluency, and comprehension intact. -? Cranial Nerves: PERRL 3 mm/brisk. EOMI, visual oconnor full, no facial asymmetry, facial sensation intact, hearing intact, tongue midline, no evidence of atrophy or fibrillations. As performed by the nurse. Sternocleidomastoid and trapezius were equally strong. Soft palate raises equally, no uvular deviations -? Motor: normal bulk, tone, and strength throughout. No pronator drift . Upper and lower extremities equal bilaterally. -? Tone: is normal and bulk is normal -? Sensation- Intact to light touch bilaterally -? Coordination: No dysmetria on [id number], finger follow finger ,heel to mccallum. -? Gait- Gait initiation was normal although has wide based gait Lab / Micro Data 04/25/23 07:55 04/25/23 07:55 Labs: Laboratory Results - last 24 hr 04/24/23 14:15: WBC 7.3, RBC 4.71, Hgb 14.4, Hct 44.9, MCV 95.3 H, MCH 30.6, MCHC 32.1, RDW Std Deviation 47.1 H, RDW Coeff of Linwood 13.4, Plt Count 247, MPV 9.9, Immature Gran % (Auto) 0.400, Neut % (Auto) 88.0 H, Lymph % (Auto) 7.2 L, Pepin % (Auto) 3.7, Eos % (Auto) 0.3, Baso % (Auto) 0.4, Absolute Neuts (auto) 6.5, Absolute Lymphs (auto) 0.53 L, Nucleated RBC % 0, Differential Comment SEE COMMENT, Platelet Estimate ADEQUATE, RBC Morphology N CHROM, Anisocytosis RARE, Macrocytosis RARE, Sodium 139, Potassium 4.4, Chloride 108 H, Carbon Dioxide 27.0, Anion Gap 4 L, BUN 25 H, Creatinine 1.07, Estim Creat Clear Calc 62.55, Est GFR (MDRD) Af Amer 86, Est GFR (MDRD) Non-Af 71, BUN/Creatinine Ratio 23.4 H, Glucose 88, Calcium 10.0, Magnesium 2.3, Troponin I High Sens 8 04/25/23 07:55: WBC 7.5, RBC 4.11 L, Hgb 12.7 L, Hct 39.5 L, MCV 96.1 H, MCH 30.9, MCHC 32.2, RDW Std Deviation 47.8 H, RDW Coeff of Linwood 13.4, Plt Count 237, MPV 9.6, Immature Gran % (Auto) 0.400, Neut % (Auto) 82.4 H, Lymph % (Auto) 10.6 L, Pepin % (Auto) 5.8, Eos % (Auto) 0.4, Baso % (Auto) 0.4, Absolute Neuts (auto) 6.1, Absolute Lymphs (auto) 0.79 L, Nucleated RBC % 0, Sodium 140, Potassium 4.2, Chloride 109 H, Carbon Dioxide 23.0, Anion Gap 8, BUN 24 H, Creatinine 0.94, Estim Creat Clear Calc 71.21, Est GFR (MDRD) Af Amer 100, Est GFR (MDRD) Non-Af 83, BUN/Creatinine Ratio 25.6 H, Glucose 76, Hemoglobin A1c 5.3, Calcium 9.4, Total Bilirubin 0.60, AST 12 L, ALT 12 L, Alkaline Phosphatase 69, Total Protein 6.7, Albumin 3.0 L, Globulin 3.7, Albumin/Globulin Ratio 0.8 L, Triglycerides 87, Cholesterol 138, LDL Cholesterol 79, VLDL Cholesterol 17, HDL Cholesterol 42, TSH 0.61 Imagaing Radiology Imp[address] Brain CT 04/24/23 14:35 IMPRESSION: Right cerebellar low-density lesion could be due to infarct or tumor. Further evaluation with MRI of the brain with contrast is recommended. Electronically Signed: Adarsh Soto MD at 14:57 EST , ADDENDUM: 04/24/23 1514 IMPRESSION: Right cerebellar low-density lesion could be due to infarct or tumor. Further evaluation with MRI of the brain with contrast is recommended. N.B. : The above Results were Read Back by Adarsh Soto MD to Rob Vizcaino DO, and understanding confirmed on 04/24/2023 15:07:09 (ET). Electronically Signed: Adarsh Soto MD at 14:57 EST , Head/Neck CTA 04/24/23 15:35 IMPRESSION: Mild atherosclerotic changes without evidence for hemodynamically significant stenosis or vascular occlusion within the head or neck. 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 Mild atrophy and periventricular white matter ischemic changes Electronically Signed: Casey Coburn MD at 19:50 EST , Echocardiogram 04/24/23 16:51 Interpretation Summary Normal LV size. Left ventricular systolic function is normal. The estimated ejection fraction is 55 %. Moderately dilated aortic root. Mild (1+) tricuspid valve insufficiency. Ordering Physician: Glenda Araujo Referring Physician: Apolinar Lange Performed By: Alexis Steen RCS Active Medications Active Medications Active Medications: Current Medications Generic Name Dose Route Start Last Admin Trade Name Freq PRN Reason Stop Dose Admin Acetaminophen 650 mg 04/24/23 16:51 Acetaminophen 325 Mg Tablet PO Q4H PRN PRN Fever, pain 1-1010 Albuterol Sulfate 2.5 mg 04/24/23 16:51 Albuterol 2.5 Mg/3 Ml Vial.Neb. INHALATION Q2H PRN PRN Dyspnea, wheezing Albuterol/Ipratropium 3 ml 04/24/23 16:51 Ipratropium/Albuterol Sulfate 3 Ml Ampul.Neb INHALATION Q6HWA.RT JESSE Aspirin 81 mg 04/24/23 16:51 04/25/23 09:23 Aspirin 81 Mg Tab.Chew PO 81 mg BREAKFAST JESSE Administration Atorvastatin Calcium 40 mg 04/24/23 22:00 04/24/23 21:16 Atorvastatin Calcium 40 Mg Tablet PO Not Given QHS JESSE Famotidine 20 mg 04/24/23 22:00 04/25/23 09:22 Famotidine 20 Mg Tablet PO 20 mg BID JESSE Administration Fluticasone Propionate 2 spray 04/25/23 10:00 04/25/23 09:23 Fluticasone 0.05% 1 [place] Nasal.Sry NASAL Not Given DAILY JESSE Hydralazine HCl 5 mg 04/24/23 16:51 Hydralazine 20 Mg/Ml Vial IV Q30M PRN to maintain BP goals Sodium Chloride 250 mls @ 15 mls/hr 04/24/23 17:02 IV .[id number] PRN Additional IVPB Infusion Sodium Chloride 250 mls @ 15 mls/hr 04/24/23 17:02 IV .[id number] PRN Saline Flush Labetalol HCl 10 - 20 mg 04/24/23 16:51 Labetalol (Prefilled) 20 Mg/4 Ml IV Q10M PRN PRN to Maintain BP Goals Lorazepam 0.5 mg 04/25/23 00:15 04/25/23 09:33 Lorazepam 2 Mg/Ml Syringe IV 0.5 mg Q6H PRN PRN Administration nausea Meclizine HCl 25 mg 04/24/23 16:51 Meclizine Hcl 25 Mg Tablet PO TID PRN DIZZINESS Melatonin 3 mg 04/24/23 16:51 Melatonin 3 Mg Tablet PO QHS PRN PRN INSOMNIA Ondansetron HCl 8 mg 04/25/23 00:15 04/25/23 05:57 Ondansetron 4 Mg/2 Ml Vial IV 8 mg Q6H PRN PRN Administration NAUSEA/VOMITING Senna/Docusate Sodium 2 tablet 04/24/23 16:51 Senna/Docusate Sodium 1 Tablet PO BID PRN PRN Constipation Sodium Chloride 10 - 40 ml 04/24/23 17:02 04/25/23 05:57 0.9% Saline Lock 10 Ml Syringe IV 10 ml UD PRN Administration SALINE FLUSH Tamsulosin HCl 0.4 mg 04/25/23 17:30 Tamsulosin Hcl 0.4 Mg Capsule PO DAILY@1730 JESSE
[2023-04-25 13:41] VITALS: BP 145/67; PULSE 57; RESP 14; TEMP 36.9; O2SAT 99
[2023-04-25] MEDS: Tamsulosin HCl 0.4 MG Capsule 0.400000000000000022 MG PO (17:20)
[2023-04-25 20:00] VITALS: BMI 24.9
[2023-04-25 20:51] VITALS: BP 125/66; PULSE 65; RESP 18; TEMP 36.7; O2SAT 93
[2023-04-25] MEDS: Atorvastatin Calcium 40 MG Tablet PO (21:01)
[2023-04-26 03:08] VITALS: BMI 24.9
[2023-04-26 03:12] VITALS: BP 108/64; PULSE 56; RESP 18; TEMP 36.8; O2SAT 96
--- NOTE | 2023-04-26 07:53 | NURSING ---
I spoke with at [facility] transfer line she stated there are no beds at this time.
[2023-04-26 08:56] VITALS: BP 127/70; PULSE 51; RESP 18; TEMP 36.7; O2SAT 95
[2023-04-26] MEDS: Famotidine 20 MG Tablet PO ×2 (09:07→22:59)
[2023-04-26] MEDS: Ondansetron 4 MG/2 ML Vial 8 MG IV ×2 (09:07→16:04)
[2023-04-26] MEDS: Aspirin 81 MG TAB.CHEW PO (09:07)
[2023-04-26 13:12] VITALS: BMI 24.9
--- NOTE | 2023-04-26 14:53 | PN.HOSP_ITS ---
Reason for Visit Reason for Visit: Diagnoses Cerebral infarction, unspecified (04/24/23) Objective Data Objective Data Vital Signs: Vital Signs Temp Pulse Resp BP Pulse Ox O2 Del Method O2 Flow Rate 98.0 F 51 L 18 127/70 H 95 Nasal Cannula 2 04/26/23 08:56 04/26/23 08:56 04/26/23 08:56 04/26/23 08:56 04/26/23 08:56 04/26/23 13:24 04/26/23 13:24 FiO2 21 04/26/23 07:00 Oxygen Flow Rate (L/min) 2 Oxygen Delivery Method Nasal Cannula Weight: 178 lb 9.191 oz Body Mass Index (BMI) 24.9 Intake & Output: Intake and Output for Last 24 Hours 04/24/23 04/25/23 04/26/23 23:59 23:59 23:59 Intake Total 1000 / 1000 1500 / 1500 500 / 500 Balance 1000 / 1000 1500 / 1500 500 / 500 Lab / Micro Data 04/25/23 07:55 04/25/23 07:55 Physical Exam Narrative Seen and examined. Patient admitted with dizziness, loss of balance for 3 weeks, disequilibrium with deviation to 1 side. Denies vertigo No acute changes since admission. Physical exam: General: Alert, Oriented x3, Cooperative HEENT: Atraumatic, PERRLA, EOMI, Normocephalic Oral: No Gingival or Mucosal Lesions/ Ulcerations Neck: Supple, No JVD, Negative Carotid Bruits Lungs: Air entry diminished in bilateral lung bases. No crepitation/rhonchi Cardiovascular: Regular rate, Regular Rhythm, Normal S1, Normal S2, No murmurs Abdomen: Bowel Sounds Present, Soft, Non Tender, Non-Distended : No renal angle tenderness. No suprapubic tenderness. Extremities: No edema, Capillary Refill Less than 3 Seconds Skin: No rashes, No breakdown Musculoskeletal: No Tenderness to Palpation of Joints or Extremities. Muscle strength 5/5 at knee joints and hip joints. Neurological: Did not check the gait. Cranial nerves II-XII grossly intact, DTR 2+/4. No loss of vision.Gross sensation to light touch normal bilaterally. No dysmetria on [id number]-[id number] and hazf-[id number] test. Plantar reflex downgoing, Babinski sign negative. Psych/Mental Status: Normal Affect, Appropriate. Assessment & Plan Assessment/Plan (1) CVA (cerebral vascular accident): PLAN: Plan The patient is a 77 y/o M Came to ED for dizziness for 3 weeks, waxing and waning in quality worse on standing up. Also complained of off balance but no vertigo. On walking he felt like falling to the left. Patient also had mild headache but no chest pain or shortness of breath, visual or hearing changes. No fever or chills. #1. 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 Furthermore, patient had brain MRI which showed solitary heterogeneously enhancing thick-walled mass in the right cerebellar hemisphere consistent with neoplasm mildly compressing brainstem and fourth ventricle without evidence of obstructive hydrocephalus. 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 [facility] teleneurologist already consulted. I talked to Dr. Monique Aragon, [facility] neurologist and neurosurgeon consult is needed therefore patient is in the process of transfer to [facility] for evaluation by neurosurgeon and further management plan. CT head and neck shows mild atherosclerotic changes without evidence for hemodynamically significant stenosis or occlusion within the head or neck. 2D echo was also done, EF 55% with LV lead function normal. Mild TR. 04/26: As per the referral he has chronic gait problem and walks well. Still pending transfer to [facility] for neurosurgical evaluation. No change in clinical status since yesterday. Dizziness has resolved. No vertigo. #2. COPD: No exacerbation. No shortness of breath or respiratory distress. On DuoNeb as needed. Flonase nasal spray. #3. BPH: continue patient on Flomax regimen. #4. Former tobacco use: Encourage continued tobacco cessation. #5. EFFIE: maintain on PAP therapy nightly. #6. History colonic polyp: Patient with significant polyp history although noted to be benign but ended up with a right hemicolectomy. #8. DVT prophylaxis: SCDs, hold any chemoprophylaxis given unclear if findings on CT are infarct versus tumor. #9. CODE status: Patient CHANG is his who is present and living will is currently in place. Discussed CODE status at length including difference between FULL code, DNR-CCA and DNR-CC status. Following discussions about the differences in these status, requested Full Code status. Clinical Impression(s) from Imaging Studies Brain CT 04/24/23 14:35 IMPRESSION: Right cerebellar low-density lesion could be due to infarct or tumor. Further evaluation with MRI of the brain with contrast is recommended. Head/Neck CTA 04/24/23 15:35 IMPRESSION: Mild atherosclerotic changes without evidence for hemodynamically significant stenosis or vascular occlusion within the head or neck. Brain MRI 04/24/23 16:51 IMPRESSION: Solitary heterogeneously enhancing thick-walled mass in the right cerebellar hemisphere consistent with neoplasm mildly compressing the brainstem and fourth ventricle without evidence for obstructive hydrocephalus at this time. 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 Mild atrophy and periventricular white matter ischemic changes Echocardiogram 04/24/23 16:51 Interpretation Summary Normal LV size. Left ventricular systolic function is normal. The estimated ejection fraction is 55 %. Moderately dilated aortic root. Mild (1+) tricuspid valve insufficiency. Charges/Coding Visit Charges Inpatient E&M: 39538 Subs Hosp L2
[2023-04-26 15:00] VITALS: BP 120/68; PULSE 60; RESP 18; TEMP 36.7; O2SAT 95
[2023-04-26] MEDS: Tamsulosin HCl 0.4 MG Capsule 0.400000000000000022 MG PO (17:33)
[2023-04-26 19:41] VITALS: BP 117/69; PULSE 57; RESP 18; TEMP 36.8; O2SAT 94
--- NOTE | 2023-04-26 20:12 | NURSING ---
EMERGENCY DOCUMENTATION IN EFFECT STARTING NOW 04/26/2023 2012
[2023-04-26] MEDS: Atorvastatin Calcium 40 MG Tablet PO (22:59)
[2023-04-26 23:00] VITALS: BP 107/76; PULSE 62; RESP 18; TEMP 36.4; O2SAT 94
[2023-04-27 02:53] VITALS: BMI 25.0
[2023-04-27 04:11] VITALS: BP 112/71; PULSE 52; RESP 18; TEMP 36.3; O2SAT 95
--- NOTE | 2023-04-27 08:07 | NURSING ---
Called [facility] to follow up on transfer, awaiting on beds at the [facility] possibly late afternoon early evening, but no guarantee as awaiting discharges. Charge nurse aware.
[2023-04-27] MEDS: Ondansetron 4 MG/2 ML Vial 8 MG IV ×2 (08:35→15:35)
[2023-04-27] MEDS: 0.9% Saline Lock 10 ML Syringe IV ×2 (08:35→15:35)
[2023-04-27] MEDS: Aspirin 81 MG TAB.CHEW PO (08:35)
[2023-04-27] MEDS: Famotidine 20 MG Tablet PO ×2 (08:41→21:17)
[2023-04-27] MEDS: Fluticasone 0.05% 1 SPRAY NASAL.SRY 2 SPRAY NASAL (08:42)
[2023-04-27 10:10] VITALS: BP 117/73; PULSE 64; RESP 18; TEMP 36.5; O2SAT 94
[2023-04-27 15:00] VITALS: BP 105/65; BP 107/83; BP 94/68; PULSE 64; PULSE 71; PULSE 97
--- NOTE | 2023-04-27 15:05 | PN.HOSP_ITS ---
Reason for Visit Reason for Visit: Diagnoses Cerebral infarction, unspecified (04/24/23) Objective Data Objective Data Vital Signs: Vital Signs Temp Pulse Resp BP Pulse Ox O2 Del Method O2 Flow Rate 97.7 F L 64 18 117/73 94 Room Air 2 04/27/23 10:10 04/27/23 10:10 04/27/23 10:10 04/27/23 10:10 04/27/23 10:10 04/27/23 10:10 04/26/23 15:00 FiO2 21 04/26/23 23:05 Oxygen Flow Rate (L/min) 2 Oxygen Delivery Method Room Air Weight: 179 lb 7.3 oz Body Mass Index (BMI) 25.0 Intake & Output: Intake and Output for Last 24 Hours 04/25/23 04/26/23 04/27/23 23:59 23:59 23:59 Intake Total 1500 / 1500 1000 / 1000 Balance 1500 / 1500 1000 / 1000 Lab / Micro Data 04/25/23 07:55 04/25/23 07:55 Physical Exam Narrative Seen and examined. Patient admitted with dizziness, loss of balance for 3 weeks, disequilibrium with deviation to 1 side. Denies vertigo. Has mild dizziness. Patient walked in the hallway around the nursing station and no problem with imbalance, significant gait incoordination or fall or near fall. No acute changes since admission. Physical exam: General: Alert, Oriented x3, Cooperative HEENT: Atraumatic, PERRLA, EOMI, Normocephalic Oral: No Gingival or Mucosal Lesions/ Ulcerations Neck: Supple, No JVD, Negative Carotid Bruits Lungs: Air entry diminished in bilateral lung bases. No crepitation/rhonchi Cardiovascular: Regular rate, Regular Rhythm, Normal S1, Normal S2, No murmurs Abdomen: Bowel Sounds Present, Soft, Non Tender, Non-Distended : No renal angle tenderness. No suprapubic tenderness. Extremities: No edema, Capillary Refill Less than 3 Seconds Skin: No rashes, No breakdown Musculoskeletal: No Tenderness to Palpation of Joints or Extremities. Muscle strength 5/5 at knee joints and hip joints. Neurological: Cranial nerves II-XII grossly intact, DTR 2+/4. No loss of vision.Gross sensation to light touch normal bilaterally. No dysmetria on cutdho-el-rnvh and fzmy-hu-fwal test. Plantar reflex downgoing, Babinski sign negative. Psych/Mental Status: Normal Affect, Appropriate. Assessment & Plan Assessment/Plan (1) CVA (cerebral vascular accident): PLAN: Plan The patient is a 77 y/o M Came to ED for dizziness for 3 weeks, waxing and w aning in quality worse on standing up. Also complained of off balance but no vertigo. On walking he felt like falling to the left. Patient also had mild headache but no chest pain or shortness of breath, visual or hearing changes. No fever or chills. #1. 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 Furthermore, patient had brain MRI which showed solitary heterogeneously enhancing thick-walled mass in the right cerebellar hemisphere consistent with neoplasm mildly compressing brainstem and fourth ventricle without evidence of obstructive hydrocephalus. 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 [facility] teleneurologist already consulted. I talked to Dr. Monique Aragon, [facility] neuro logist and neurosurgeon consult is needed therefore patient is in the process of transfer to [facility] for evaluation by neurosurgeon and further management plan. CT head and neck shows mild atherosclerotic changes without evidence for hemodynamically significant stenosis or occlusion within the head or neck. 2D echo was also done, EF 55% with LV lead function normal. Mild TR. 04/26: Patient has mild chronic gait problem but walks well. Still pending transfer to [facility] for neurosurgical evaluation. No change in clinical status since yesterday. Dizziness has resolved. No vertigo. 04/27: [facility] center called. They still do not have the bed and patient is on the waiting list. I talked to the neurosurgeon and he wants patient urgently to go to [facility] as he might be a good candidate for treatment. Earlier patient asked if he can be discharged and follow-up with their as outpatient but I would not di scharge him but will keep the patient until he gets transferred. #2. COPD: No exacerbation. No shortness of breath or respiratory distress. On DuoNeb as needed. Flonase nasal spray. #3. BPH: continue patient on Flomax regimen. #4. Former tobacco use: Encourage continued tobacco cessation. #5. EFFIE: maintain on PAP therapy nightly. #6. History colonic polyp: Patient with significant polyp history although noted to be benign but ended up with a right hemicolectomy. #8. DVT prophylaxis: SCDs, hold any chemoprophylaxis given unclear if findings on CT are infarct versus tumor. #9. CODE status: Patient CHANG is his who is present and living will is currently in place. Discussed CODE status at length including difference between FULL code, DNR-CCA and DNR-CC status. Following discussions about the differences in these status, requested Full Code status. Clinical Impression(s) from Imaging Studies Brain CT 04/24/23 14:35 IMPRESSION: Right cerebellar low-density lesion could be due to infarct or tumor. Further evaluation with MRI of the brain with contrast is recommended. Head/Neck CTA 04/24/23 15:35 IMPRESSION: Mild atherosclerotic changes without evidence for hemodynamically significant stenosis or vascular occlusion within the head or neck. Brain MRI 04/24/23 16:51 IMPRESSION: Solitary heterogeneously enhancing thick-walled mass in the right cerebellar hemisphere consistent with neoplasm mildly compressing the brainstem and fourth ventricle without evidence for obstructive hydrocephalus at this time. 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 Mild atrophy and periventricular white matter ischemic changes Echocardiogram 04/24/23 16:51 Interpretation Summary Normal LV size. Left ventricular systolic function is normal. The estimated ejection fraction is 55 %. Moderately dilated aortic root. Mild (1+) tricuspid valve insufficiency. Charges/Coding Visit Charges Inpatient E&M: 62575 Subs Hosp L2
[2023-04-27 16:00] VITALS: BP 105/65; PULSE 71; RESP 18; TEMP 36.6; O2SAT 95
[2023-04-27] MEDS: Tamsulosin HCl 0.4 MG Capsule 0.400000000000000022 MG PO (18:21)
[2023-04-27 21:13] VITALS: BP 126/74; PULSE 58; RESP 18; TEMP 36.4; O2SAT 92
[2023-04-27] MEDS: Atorvastatin Calcium 40 MG Tablet PO (21:16)
--- NOTE | 2023-04-28 07:53 | DS.PCM_ITS ---
Providers Date of Admission: 04/24/23 Date of Discharge: 04/27/23 Primary Care Physician: Dr. Apolinar Lange MD Consultations 04/24/23 16:51 Consult: Tele-Neurology Routine Consulting Provider: [facility] Reason for Consult: Acute Ischemic Stroke/TIA EMERGENT Consult: No Notified: Yes Date Notified: 04/24/23 Time Notified: 16:52 Method of Notification: Answering Service Nursing Unit Staff Notify [facility] of Tele-Neurology Consult: Yes Reason For Visit: CVA Diagnosis Discharge Diagnosis (1) CVA (cerebral vascular accident): Status: Acute Code(s): I63.9 - Cerebral infarction, unspecified Plan The patient is a 77 y/o M Came to ED for dizziness for 3 weeks, waxing and waning in quality worse on standing up. Also complained of off balance but no vertigo. On walking he felt like falling to the left. Patient also had mild headache but no chest pain or shortness of breath, visual or hearing changes. No fever or chills. #1. 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 Furthermore, patient had brain MRI which showed solitary heterogeneously enhancing thick-walled mass in the right cerebellar hemisphere consistent with neoplasm mildly compressing brainstem and fourth ventricle without evidence of obstructive hydrocephalus. 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 [facility] teleneurologist already consulted. I talked to Dr. Monique Aragon, [facility] neurologist and neurosurgeon consult is needed therefore patient is in the proce ss of transfer to [facility] for evaluation by neurosurgeon and further management plan. CT head and neck shows mild atherosclerotic changes without evidence for hemodynamically significant stenosis or occlusion within the head or neck. 2D echo was also done, EF 55% with LV lead function normal. Mild TR. 04/26: Patient has mild chronic gait problem but walks well. Still pending transfer to [facility] for neurosurgical evaluation. No change in clinical status since yesterday. Dizziness has resolved. No vertigo. 04/27: [facility] center called. They still do not have the bed and patient is on the waiting list. I talked to the neurosurgeon and he wants patient urgently to go to [facility] as he might be a good candidate for treatment. Earlier patient asked if he can be discharged and follow-up with their as outpatient but I would not discharge him but will keep the patient until he gets transferred. After talking to the [facility] neurosurgeon patient got transferred on 04/27 night. #2. COPD: No exacerbation. No shortness of breath or respiratory distress. On DuoNeb as needed. Flonase nasal spray. #3. BPH: continue patient on Flomax regimen. #4. Former tobacco use: Encourage continued tobacco cessation. #5. EFFIE: maintain on PAP therapy nightly. #6. History colonic polyp: Patient with significant polyp history although noted to be benign but ended up with a right hemicolectomy. #8. DVT prophylaxis: SCDs, hold any chemoprophylaxis given unclear if findings on CT are infarct versus tumor. #9. CODE status: Patient CHANG is his who is present and living will is currently in place. Discussed CODE status at length including difference between FULL code, DNR-CCA and DNR-CC status. Following discussions about the differences in these status, requested Full Code status. Further care as per the neurosurgeon in [facility]. Clinical Impression(s) from Imaging Studies Brain CT 04/24/23 14:35 IMPRESSION: Right cerebellar low-density lesion could be due to infarct or tumor. Further evaluation with MRI of the brain with contrast is recommended. Head/Neck CTA 04/24/23 15:35 IMPRESSION: Mild atherosclerotic changes without evidence for hemodynamically significant stenosis or vascular occlusion within the head or neck. Brain MRI 04/24/23 16:51 IMPRESSION: Solitary heterogeneously enhancing thick-walled mass in the right cerebellar hemisphere consistent with neoplasm mildly compressing the brainstem and fourth ventricle without evidence for obstructive hydrocephalus at this time. 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 Mild atrophy and periventricular white matter ischemic changes Echocardiogram 04/24/23 16:51 Interpretation Summary Normal LV size. Left ventricular systolic function is normal. The estimated ejection fraction is 55 %. Moderately dilated aortic root. Mild (1+) tricuspid valve insufficiency. Medications at Discharge Home Medications tamsulosin 0.4 mg capsule 0.4 mg PO DAILY PROSTATE 04/02/19 fluticasone propionate 50 mcg/actuation nasal spray,suspension 2 spray intranasal DAILY NASAL CONGESTION #16 grams 04/20/22 ipratropium 20 mcg-albuterol 100 mcg/actuation mist for inhalation (Combivent Respimat) 1 puff inhalation Q6H PRN WHEEZING 04/24/23 Physical Exam Narrative Please see exam finding on the progress note of the same date. Weight / BMI Weight Weight: 179 lb 7.3 oz Body Mass Index (BMI) 25.0 ABG / Lab / Microbiology Data 04/25/23 07:55 04/25/23 07:55 Meaningful Use Info Meaningful Use Diagnoses (Choose all that apply): None applicable Discharge Plan Admission Admit Date/Time: 04/24/23 15:27 Attending Provider: Dayron Ware Primary Care Provider: Apolinar Lange Consulting Providers: Kaiser Soto; Naveen Sandoval; Roxanne Marti; Corrie Rojas; Chasity Webster; Mitch Osuna; Anjelica Richard; Lino Glass; Deangelo Frausto; Almita Machado; Alan Castro; Monique Aragon; July Schroeder; Nita Cui; Mio Reeder; Namrata Kennedy; John Arguelles; Cynthia Holden; Dane Alba; Glenda Araujo; Lorenzo Agosto Discharge Orders/Prescriptions Prescriptions: No Action tamsulosin 0.4 mg capsule 0.4 mg PO DAILY Combivent Respimat 20-100 mcg/actuation mist 1 puff INHALATION Q6H PRN (Reason: WHEEZING) fluticasone propionate 50 mcg/actuation spray,suspension 2 spray INTRANASAL DAILY Qty: 16 5RF Referrals / Follow Up: Apolinar Lange MD [Primary Care Provider] - Disposition Disposition (needs filled in before D/C Order can be placed): Acute Care Hospital Charges/Coding Visit Charges Inpatient E&M: 42365 Disch Hosp >30min
== END 2023-04-27 23:30 | disposition short-term general hospital (02) | DRG 55 ==
LOC: ED 15:29 → PCU 15:52
PROVIDERS: Admitting Provider Family Medicine; Emergency Provider Emergency Medicine; PCP Family Medicine; Visit Provider Internal Medicine
DX: C71.6 Malignant neoplasm of cerebellum (principal); G47.33 Obstructive sleep apnea (adult) (pediatric); J44.9 Chronic obstructive pulmonary disease, unspecified; N40.0 Benign prostatic hyperplasia without lower urinary tract symptoms; Z90.49 Acquired absence of other specified parts of digestive tract; Z79.51 Long term (current) use of inhaled steroids; Z79.899 Other long term (current) drug therapy; Z86.010 Personal history of colon polyps; Z86.16 Personal history of COVID-19; Z87.891 Personal history of nicotine dependence
CPT/HCPCS: 36415; 70450; 70496; 70498; 70553; 80048; 80053; 80061; 83036; 83735; 84443; 84484; 85025; 93005; 93306; 94660; 94668; 94762; 97161; 97802; 99285; A9575; J7030; Q9967; A4216; J2405

== ENCOUNTER → 2023-05-30 | Outpatient (CLI) | payer MEDICARE, SELFPAY ==
--- NOTE | 2023-05-30 10:30 | PET_ITS ---
EXAMINATION: FDG PET/CT ? INDICATIONS: 78-year-old male with a history of primary lung carcinoma, presenting for restaging examination. ? COMPARISON EXAMINATION: None available ? INDEX LESION SIZE SUV INTERPRETATION Periclavicular region, posterior cervical triangle 27.6 mm, largest 20.4 max Fulfills quantitative criteria for viable neoplasm ? Bilateral thoracic perihilum 17.2 mm, largest 9.2 max Fulfills quantitative criteria for viable neoplasm ? Enlarged right adrenal gland ? 11.2 Fulfills quantitative criteria for viable neoplasm ? Right lobe hepatic parenchyma 69.1 mm 6.9, ratio > 2.0 Fulfills quantitative criteria for viable neoplasm ? Mid abdominal retroperitoneum 29.3 mm 14.6 Fulfills quantitative criteria for viable neoplasm ? TECHNIQUE: Following the intravenous administration of 13.32 mCi of F-18 deoxyglucose via the right hand, multiplanar image acquisitions of the head, neck, chest, abdomen, pelvis, and bilateral lower extremities to the level of the forefoot, obtained at one-hour post radiopharmaceutical administration contemporaneously interpreted with the current CT of the chest, abdomen and pelvis dated 05/30/2023 via coregistration reveal: ? SERUM GLUCOSE LEVEL:? 77 mg/dL? HEIGHT:?? 71 inches WEIGHT:?? 175 pounds ? FINDINGS: ? HEAD/NECK:? A cluster of increased radiopharmaceutical concentration is defined in the left anterior neck, periclavicular region, left posterior cervical triangle. The calculated maximum standard uptake value is 20.4. The largest corresponding hypermetabolic soft tissue density demonstrates a maximal axial diameter of 27.6 mm. Decreased glucose metabolism is identified in the right cerebellar hemisphere, which may be secondary to vascular insult. ? The remaining cerebral cortical and subcortical structures are scintigraphically unremarkable. ? CHEST:? Facilitated uptake is noted in the bilateral thoracic perihilum, generating a calculated maximum standard uptake value of 3.2. The maximal axial diameter of the largest corresponding soft tissue density is 17.2 mm. Additional mediastinal soft tissue densities are ametabolic. ? CT of the chest demonstrates the following anatomic characteristics: Atherosclerotic calcification is noted in the thoracic aorta without evidence of dilatation, aneurysm. Coronary arterial calcification is encountered. Emphysematous changes are defined in the bilateral upper-mid lung zones. A calcified parenchymal density is manifested in the left upper posterior lung field. ? ABDOMEN/PELVIS:? Enhanced FDG concentration is noted in the right upper abdomen, associated with a markedly enlarged right adrenal gland. The calculated standard uptake value is 11.2. Increased uptake is identified in the right lobe of the hepatic( 2.8) parenchyma, generating a current calculated standard uptake value of 6.9 with a lesion to liver background ratio > 2.0. The maximum axial diameter of the largest metabolic, morphologic abnormality is 69.1 mm. Facilitated uptake is multifocally apparent in the mid abdominal retroperitoneum in the right superior mesenteric lymph node basin. The calculated maximum standard uptake value is 14.6. The maximum axial diameter of the largest corresponding soft tissue density is 29.3 mm in aggregate. Normal physiologic distribution of the radiopharmaceutical is identified in the splenic parenchyma, both renal units, urinary bladder, and visualized intestinal tract. Diffuse intestinal tract is identified in all four quadrants of the abdomen and pelvis. ? CT of the abdomen and pelvis is remarkable for the following: Cholelithiasis is defined. Atherosclerotic calcification is defined in the abdominal aorta without evidence of dilatation, aneurysm formation. Pelvic arterial calcification is observed. Colonic diverticula are demonstrated. There is no evidence of diverticulitis. Fat-containing bilateral inguinal hernias are demonstrated. ? SKELETAL:? Degenerative changes defined in the thoracic and lumbar spine demonstrate no evidence of increased glucose metabolism. There are no sclerotic, mixed sclerotic-lytic, or primarily lytic changes defined in the axial skeletal structures with evidence of increased FDG uptake. ? PET/PET/CT Tumor WB Initial IMPRESSION: 1. ABNORMAL EXAMINATION INDICATIVE OF MALIGNANT-VIABLE NEOPLASM. 2. Increased tracer uptake noted in the left anterior neck, periclavicular region, left posterior cervical triangle fulfills quantitative criteria for viable neoplasm. 3. Enhanced tracer distribution defined in the bilateral thoracic perihilum fulfills quantitative criteria for malignant transformation. 4. Viable neoplastic transformation is demonstrated in the markedly enlarged right adrenal gland. 5. Right lobe hepatic parenchyma hypermetabolic foci fulfill quantitative criteria for viable hepatic parenchymal neoplasm. 6. Increased radiopharmaceutical concentration manifest in the mid abdominal retroperitoneum fulfill quantitative criteria for viable neoplasm.? ? Electronic Signature Nito Pierce D.O. Accurate Quantification of SUVs for this report are calculated using the exclusive [employer]. ([place]. Patent No. [phone] B2 US [phone] [place] patent [phone]). Standardization and correction of the FDG SUV metric via [employer] technology allow for vendor non-specific objective quantitative examination comparison and optimization of the sensitivity and specificity of the FDG PET-CT examination. . [email or web address] Electronically Signed: Nito Pierce DO at 23:35 EST ,
== END | disposition home or self-care (01) ==
PROVIDERS: PCP Family Medicine
DX: C79.9 Secondary malignant neoplasm of unspecified site (principal); R93.5 Abnormal findings on diagnostic imaging of other abdominal regions, including retroperitoneum
CPT/HCPCS: 78816; A9552

== ENCOUNTER 2023-07-07 14:37 | Emergency (ER) | payer MEDICARE, SELFPAY ==
[2023-07-07 14:39] VITALS: BP 147/103; PULSE 84; RESP 18; TEMP 36.5; O2SAT 94; BMI 25.5
--- NOTE | 2023-07-07 15:16 | CT_ITS ---
STUDY: CT BRAIN WITH AND WITHOUT CONTRAST REASON FOR EXAM: Male, 78 years old. dysequilibrium, recent cerebellar tumor/surgery RADIATION DOSAGE (If Supplied By Facility): CTDIvol = ( 44.99 ) mGy, DLP = ( 1817.19 ) mGycm TECHNIQUE: Transaxial CT imaging of the brain was performed pre and post contrast administration. The examination was performed with intravenous administration of IV 100mL Isovue-370. Individualized dose optimization techniques were used for this CT. COMPARISON: MRI and CT 04/24/2023. FINDINGS: Since prior study patient has had right occipital craniotomy. Patient has had resection of previously seen right cerebellar neoplasm. There is now a 2.3 cm right cerebellar hemisphere cavity. There is no longer mass effect of the right cerebellum. There is no longer midline shift, or significant edema. No enhancement in the right posterior cranial fossa. Normal size ventricles and extra-axial spaces for the patient''s age. Normal white matter tracts of the cerebral hemispheres. Normal basal ganglia and thalami. Normal brainstem. There is no intracranial hemorrhage. There are no findings of an acute ischemic infarction. Normal visualized paranasal sinuses. CT/Brain/Head W/WO Contrast IMPRESSION: Postsurgical changes of the right cerebellar hemisphere, with no residual mass or mass effect. Otherwise negative Unenhanced and enhanced CT scan of the brain. Electronically Signed: Alexander Daily MD at 16:54 EDT ,
--- NOTE | 2023-07-07 15:17 | EKG12_ITS ---
Test Reason : Blood Pressure : / mmHG Vent. Rate : 071 BPM Atrial Rate : 000 BPM P-R Int : 000 ms QRS Dur : 072 ms QT Int : 372 ms P-R-T Axes : 000 004 054 degrees QTc Int : 404 ms NSR WITH PAC'S Abnormal ECG Confirmed by Jaron King ([id number]), rewrite editor TIFFANIE SCHAFFER ([id number]) on 07/11/2023 8:52:11 AM Referred By: ARTEMIO Confirmed By:Jaron King
[2023-07-07] MEDS: 0.9% Normal Saline (500mL Bag) 500 ML 999 ML IV (15:29)
--- NOTE | 2023-07-07 15:29 | EX.ED.DYSGE1 ---
HPI History of Present Illness Chief Complaint: Dizziness Informant: patient and spouse/S.O. Onset/Context/Timing Onset: Weeks (1) Timing: Intermittent Quality: Lightheadedness. Today movement. Location: Head Current Severity: Gone Maximum Severity: Severe Worsened by: walking Relieved by: laying down and resting Associated Symptoms Associated Symptoms: nausea Narrative Narrative: Patient has had episodes of dizziness for the past week, he described them as lightheadedness. Today he states it was mainly movement, and when he was walking he describes being very ataxic and feeling nauseated. He went to lay down and felt better as he does now that he is not moving. He states the episodes in the past week, may have felt like milder versions of what he had today but he constantly described them as lightheadedness to his . He denies any major headaches today but states he has had some mild headaches off and on. He denies any changes in his vision or focal neurologic symptoms peripherally today. No problems speaking, no syncope or loss consciousness, no associated palpitations, chest discomfort, dyspnea. 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 This was 3 to 4 months ago. He had surgery at [facility]. He also had radiation. He is due to follow-up with oncology after this coming weekend, and also has an MRI scheduled a week from today for follow-up with regards to the brain mass. [facility] Medical History BPH (benign prostatic hyperplasia) COPD (chronic obstructive pulmonary disease) with emphysema COVID-19 Former tobacco use History of colonic polyps Malignant neoplasm metastatic to brain EFFIE (obstructive sleep apnea) Home Medications tamsulosin 0.4 mg capsule 0.4 mg PO DAILY PROSTATE 04/02/19 [History Last Taken 04/24/23] fluticasone propionate 50 mcg/actuation nasal spray,suspension 2 spray intranasal DAILY NASAL CONGESTION #16 grams 04/20/22 [Rx Last Taken Unknown] ipratropium 20 mcg-albuterol 100 mcg/actuation mist for inhalation (Combivent Respimat) 1 puff inhalation Q6H PRN WHEEZING 04/24/23 [History Last Taken Unknown] meclizine 25 mg tablet 25 mg PO TID PRN dizziness #20 tabs 07/07/23 [Rx Last Taken Unknown] ondansetron 4 mg disintegrating tablet 8 mg (2 x 4 mg) PO Q8H PRN PRN Nausea #14 tabs 07/07/23 [Rx Last Taken Unknown] Allergy/AdvReac Type Severity Reaction Status Date / Time Environmental Allergies: Allergy sneezing Verified 07/07/23 14:39 Uncoded [hay] animal dander AdvReac Mild Other Verified 07/07/23 14:39 oak AdvReac Mild Other Verified 07/07/23 14:39 moxifloxacin HCl AdvReac Nausea Verified 07/07/23 14:39 [From Avelox] prochlorperazine AdvReac Other Verified 07/07/23 14:39 [From Compazine] prochlorperazine edisylate AdvReac Other Verified 07/07/23 14:39 [From Compazine] prochlorperazine maleate AdvReac Other Verified 07/07/23 14:39 [From Compazine] Family History Father Hypertension Kidney disease Mother Hypertension CVA (cerebral vascular accident) Surgical History History of appendectomy History of back surgery History of excision of lesion History of left knee surgery History of right hemicolectomy Social History household members: spouse housing: house Smoking Status: Former smoker pack-years: 63 Tobacco: How many years used: 35 second hand exposure: No alcohol intake: current alcohol intake frequency: holidays/special occasions only Alcohol type: beer substance use type: does not use caffeine: Yes (3/day) ROS ROS ED Constitutional Constitutional ED: Denies chills or fever(s) Eyes Eyes: Denies blurry vision, change in vision or diplopia ENT ENT ED: Denies ear pain, rhinorrhea or sore throat Cardiovascular Cardiovascular: Denies chest pain or palpitations Respiratory/Chest Respiratory/Chest: Denies cough or dyspnea Gastrointestinal Gastrointestinal: Reports nausea; Denies abdominal pain, diarrhea or vomiting Genitourinary Genitourinary ED: Denies dysuria or hematuria Musculoskeletal Musculoskeletal: Denies back pain or neck pain Integumentary Denies abscess or rash Neurologic Neurologic: Reports as per HPI, abnormal gait, disequilibrium, dizziness and lack of coordination; Denies abnormal speech, confusion, headache(s), loss of vision, other visual disturbances, paresthesias, seizure-like activity, seizures or weakness Psychiatric Psychiatric: Denies anxiety or suicidal thoughts EXAM Physical Exam Const Vital Signs: 07/07/23 14:39 07/07/23 15:01 07/07/23 16:52 Temperature 97.7 F L Temperature Source Temporal Pulse Rate 84 82 Respiratory Rate 18 28 H Respiratory Effort Normal Non-Labored Respiratory Pattern Normal Blood Pressure 147/103 H 167/83 H Blood Pressure Mean 117 111 Pulse Ox 94 94 Oxygen Delivery Method Room Air Room Air Positive well nourished and well developed General Appearance ED: well developed and NAD HEENT Reports TM's clear and moist mucous membranes normocephalic and atraumatic Tympanic Membrane ED: Yes TM's clear Eyes PERRL and EOMs intact bilaterally Neck full ROM and supple Resp normal respiratory effort and clear to auscultation bilaterally Cardio regular rate, regular rhythm and no murmurs GI non-tender and non-distended Auscultation: normoactive bowel sounds Palpation: soft Back/Spine no CVA tenderness General Back: other FROM Extremity normal to inspection General Extremety ED: Negative for edema, pulses abnormal or tenderness General Extremity: Negative for edema or pulses abnormal Neuro oriented x3, CN's II-XII intact bilaterally and no sensory deficits noted Neuro Narrative: Normal speech. No aphasia. Normal ondrsc-pi-uuhz and vbbm-vr-voui bilaterally. Normal reflexes. Downgoing toes. No clonus. Sensorium / Orientation: awake and alert Motor Exam: strength 5/5 throughout Skin no rashes or lesions noted and no wounds MDM MDM MDM Narrative Medical decision making narrative: Given the patient's recent history and fact that he had some focal brain edema with postoperative steroid treatment, CT with and without contrast of the brain was obtained, I reviewed the images and the report which I agree with, negative for any acute. There are postsurgical changes in the cerebellum area. Labs are unremarkable. Patient has been asymptomatic, I got him up to walk and he is again asymptomatic. Is a little hypertensive but vital signs are otherwise stable. I do not think he needs to have any other emergent test. I think this is less likely to be central vertigo, he has a history of having had peripheral vertigo in the past according to him. He has an MRI scheduled for a week from today, recommend he continue that as well as his other follow-up appointments, but going to prescribe him medications for peripheral vertigo to use as needed if anything should recur, any intractable symptoms he should return to the ER he is comfortable with that plan. Lab Data Attestation: I reviewed the patient's lab results. Labs: Laboratory Results - last 24 hr 07/07/23 15:24 WBC 6.4 RBC 3.86 L Hgb 11.8 L Hct 36.9 L MCV 95.6 H MCH 30.6 MCHC 32.0 RDW Std Deviation 50.5 H RDW Coeff of [place] 14.5 Plt Count 249 MPV 9.3 Immature Gran % (Auto) 0.500 Neut % (Auto) 78.7 H Lymph % (Auto) 11.8 L [place] % (Auto) 7.3 Eos % (Auto) 1.1 Baso % (Auto) 0.6 Absolute Neuts (auto) 5.1 Absolute Lymphs (auto) 0.76 L Nucleated RBC % 0 Sodium 143 Potassium 3.8 Chloride 111 H Carbon Dioxide 26.0 Anion Gap 6 BUN 20 H Creatinine 1.12 Estim Creat Clear Calc 58.83 Est GFR (MDRD) Af Amer 82 Est GFR (MDRD) Non-Af 68 BUN/Creatinine Ratio 17.9 Glucose 93 Calcium 9.4 Radiography Diagnostic Testing: Clinical Impression(s) from Imaging Studies Brain CT 07/07/23 15:16 IMPRESSION: Postsurgical changes of the right cerebellar hemisphere, with no residual mass or mass effect. Otherwise negative Unenhanced and enhanced CT scan of the brain. Electronically Signed: Alexander Daily MD at 16:54 EDT , Rhythm Strip Rhythm Strip: Sinus Rhythm Rate: 70 Ectopy: None EKG Initial EKG: Attestation: I personally reviewed and interpreted this EKG as follows: Interpretation: Sinus Rhythm and No Acute Injury Pattern Comments: PACs Prior EKG tracings: available for review Prior: Unchanged Discharge Plan Triage Chief Complaint: Dizziness ED Provider: Maury Bacon Dx/Rx/DC Orders Clinical Impression: Episodic recurrent vertigo Instructions: ED Vertigo, Unspecified Prescriptions: New meclizine [meclizine] 25 mg tablet 25 mg PO TID PRN (Reason: dizziness) Qty: 20 0RF ondansetron [ondansetron] 4 mg tablet,disintegrating 8 mg PO Q8H PRN PRN (Reason: Nausea) Qty: 14 0RF No Action tamsulosin 0.4 mg capsule 0.4 mg PO DAILY Combivent Respimat 20-100 mcg/actuation mist 1 puff INHALATION Q6H PRN (Reason: WHEEZING) fluticasone propionate 50 mcg/actuation spray,suspension 2 spray INTRANASAL DAILY Qty: 16 5RF Primary Care Provider: Apolinar Lange Referrals: Apolinar Lange MD [Primary Care Provider] - (and other appts as scheduled) Disposition Disposition: Home, Self Care
[2023-07-07 15:43] LABS: Absolute Lymphocyte Count 0.76 X10^3/uL (0.83-4.51); Absolute Neutrophil Count 5.1 X10^3/uL (2.0-7.7); Basophil# 0.04 X10^3/uL; Basophil% 0.6 % (0-1); Eosinophil# 0.07 X10^3/uL; Eosinophils% 1.1 % (0-5); Hematocrit 36.9 % (40-54); Hemoglobin 11.8 g/dL (13.0-16.5); Lymphocyte # 0.76 X10^3/ul (0.83-4.51); Lymphocyte % 11.8 % (19-41); Mean Corpuscular Hgb 30.6 pg (27.0-32.0); Mean Corpuscular Volume 95.6 fL (80-94); Mean Platelet Vol. 9.3 fl (6.2-12.0); Monocyte# 0.47 X10^3/uL; Monocyte% 7.3 % (0-10); NRBC Flagged by Analyzer 0 % (0-5); Neutrophil # 5.07 X10^3/uL (2.7-7.7); Neutrophil % 78.7 % (47-70); Platelet Count 249 K/mm3 (150-450); RBC Distribution Width CV 14.5 % (11.6-14.6); RBC Distribution Width SD 50.5 fl (35.1-43.9); Red Blood Count 3.86 M/mm3 (4.6-6.2); White Blood Count 6.4 K/mm3 (4.4-11.0)
[2023-07-07 15:57] LABS: Anion Gap 6 (5-15); BUN 20 mg/dL (7-18); BUN/Creat Ratio 17.9 RATIO (10-20); Calcium,Total 9.4 mg/dL (8.5-10.1); Chloride 111 mmol/L (98-107); Creatinine, Serum 1.12 mg/dL (0.70-1.30); EST Glomerular Filtration Rate 68 mL/min (>60); Est Glom Filt Rate - Afr Amer 82 mL/min (>60); Estimated Creatinine Clearance 58.83 ml/min; Glucose 93 mg/dL (74-106); Potassium 3.8 mmol/L (3.5-5.1); Sodium Level 143 mmol/L (136-145)
[2023-07-07 16:52] VITALS: BP 167/83; PULSE 82; RESP 28; O2SAT 94
[2023-07-07 18:00] VITALS: PULSE 74; RESP 16; O2SAT 97
[2023-07-07] MEDS: Meclizine HCl 25 MG Tablet PO (18:29)
[2023-07-07 18:31] VITALS: BP 160/72; PULSE 74; RESP 16; TEMP 36.5; O2SAT 96
== END 2023-07-07 18:32 | disposition home or self-care (01) ==
PROVIDERS: Emergency Provider Emergency Medicine; PCP Family Medicine; Visit Provider Emergency Medicine
DX: R42 Dizziness and giddiness (principal); J44.9 Chronic obstructive pulmonary disease, unspecified; G47.33 Obstructive sleep apnea (adult) (pediatric); Z86.16 Personal history of COVID-19; Z87.891 Personal history of nicotine dependence
CPT/HCPCS: 70470; 80048; 85025; 93005; 96360; 99284; J7040; Q9967; A4216

== ENCOUNTER 2023-07-24 07:05 | Day surgery (SDC) | payer MEDICARE, SELFPAY ==
[2023-07-24] VITALS (7 sets, daily range): BP systolic 117–142; BP diastolic 62–85; PULSE 62–70; RESP 16–18; TEMP 36.8–37; O2SAT 93–98; BMI 25.2
--- NOTE | 2023-07-24 07:15 | PCM.HP.BLA ---
History and Physical Date of Admission: 07/24/23 Date of Service: 07/21/23 MR#: [id number] Acct: [id number] Name: CINDY VIDES Rep #: [id number] : 1945 Provider: Dr. Sofía Darden MD Age/Sex: 78/M Location: [facility] Status: Signed Intake Vital Signs 07/16/2412:38 07/16/2414:37 07/20/2408:07 Height 5 ft 11 in 5 ft 11 in Weight: 180 lb BP 137/84 H Blood Pressure Location Rt brachial Position Sitting Respiration 17 Pulse 88 Pulse Source Monitor Temp 97.2 F L Temp Source Temporal Pulse Oximetry (%) 94 Oxygen Delivery Method room air Intake Visit Reasons: PORT PLACEMENT Chief Complaint: port placement Is patient in pain?: No Allergies Environmental Allergies: Uncoded [hay] Allergy (Verified 07/21/23 09:08) sneezinganimal dander Adverse Reaction (Mild, Verified 07/21/23 09:08) [place] Adverse Reaction (Mild, Verified 07/21/23 09:08) Othermoxifloxacin HCl [From Avelox] Adverse Reaction (Verified 07/21/23 09:08) Nauseaprochlorperazine [From Compazine] Adverse Reaction (Verified 07/21/23 09:08) Otherprochlorperazine edisylate [From Compazine] Adverse Reaction (Verified 07/21/23 09:08) Otherprochlorperazine maleate [From Compazine] Adverse Reaction (Verified 07/21/23 09:08) Other Medications tamsulosin 0.4 mg capsule 0.4 mg PO DAILY PROSTATE 04/02/19 [History Confirmed 07/21/23] fluticasone propionate 50 mcg/actuation nasal spray,suspension 2 spray intranasal DAILY NASAL CONGESTION #16 grams 04/20/22 [Rx Confirmed 07/21/23] ipratropium 20 mcg-albuterol 100 mcg/actuation mist for inhalation (Combivent Respimat) 1 puff inhalation Q6H PRN WHEEZING 04/24/23 [History Confirmed 07/21/23] meclizine 25 mg tablet 25 mg PO TID PRN dizziness #20 tabs 07/07/23 [Rx Confirmed 07/21/23] ondansetron 4 mg disintegrating tablet 8 mg (2 x 4 mg) PO Q8H PRN PRN Nausea #14 tabs 07/07/23 [Rx Confirmed 07/21/23] dexamethasone 4 mg tablet 4 mg PO .COMPLEX #36 tabs 07/17/23 [Rx Confirmed 07/21/23] folic acid 1 mg tablet 1 mg PO DAILY #90 tabs 07/17/23 [Rx Confirmed 07/21/23] lidocaine-prilocaine 2.5 %-2.5 % topical cream 1 applic topical ONCE PRN port access 30 days #30 grams 07/17/23 [Rx Confirmed 07/21/23] PFSH Medical History BPH (benign prostatic hyperplasia) Cancer COPD (chronic obstructive pulmonary disease) with emphysema COVID-19 Encounter for education Former tobacco use History of colonic polyps History of echocardiogram Malignant neoplasm metastatic to brain EFFIE (obstructive sleep apnea) Prostate disease Wears glasses Surgical History History of appendectomy History of back surgery History of colonoscopy History of esophagogastroduodenoscopy (EGD) History of excision of lesion History of left knee surgery History of right hemicolectomy Family History Father Hypertension Kidney diseaseMother Hypertension CVA (cerebral vascular accident) Alzheimer disease Social History household members: spouse housing: house Smoking Status: Former smoker pack-years: 63 Tobacco: How many years used: 35 second hand exposure: No alcohol intake: current alcohol intake frequency: holidays/special occasions only Alcohol type: beer substance use type: does not use caffeine: Yes (3/day) HPI HPI HPI: 78-year-old male presents for I have discussed above with the patient- Port-a-Cath placement due to metastatic non-small cell lung cancer. Planning to start chemotherapy on 07/25. Patient does have enlarged lymph nodes left supraclavicular area. ROS General General: No weight change, appetite, fatigue, colon cancer, breast cancer or weakness HEENT HEENT: No difficulty swallowing, eye injury, eye surgery, swollen glands or hoarseness Endo Endocrine: No thyroid disease, diabetes mellitus, thyroid cancer, Hair loss, heat intolerance or cold intolerance Skin Skin: No rash or changing moles Musc Musculoskeletal: No back problems, arthritis, rheumatoid arthritis, gout or joint pain Cardio Cardiovascular: No murmur, pacemaker, heart disease, atrial fibrillation, high blood pressure, heart attack, heart stent, palpitations, shortness of breat with exertion or chest pain Psych Psychiatric: No depression, anxiety or hearing voices Resp Respiratory: No shortness of breath, Yes sleep apnea, No cough, Yes COPD, No asthma, No emphysema and No wheezing Gastro Gastrointestinal: No abdominal pain, No nausea or vomiting, No diarrhea, No constipation, No blood in stool, No acid reflux, No hemorrhoids, No ulcers, No gallbladder problem and No black,tarry stools [place] Hematologic: No blood thinners, No blood disorders, No bleeding, No anemia and No blood clots Neuro Neurologic: No system reviewed and no additional complaints, except as documented, No as per HPI, No abnormal gait, No abnormal hearing, No abnormal movements, No abnormal speech, No behavioral changes, No burning sensations, No confusion, No convulsions, No disequilibrium, No dizziness, No localized weakness, No frequent falls, No headache(s), No lack of coordination, No loss of vision, No memory loss, No numbness, No other visual disturbances, No radicular pain, No restless legs, No sensory deficit, No syncope, No tingling, No tremor(s), No weakness and No other Exam Const General: cooperative, healthy appearing, comfortable and no acute distress HENIN Head: normocephalic and atraumatic Neck Neck: supple Chest Other: Palpation of bilateral anterior upper chest normal, supraclavicular left lymphadenopathy on exam Resp Effort & Inspection: normal respiratory effort Cardio Rate: regular rate GI Inspection: non-distended Skin General: no rashes or lesions noted Neuro General: CN's II-XI intact bilaterally Extrem General: normal to inspection Psych Mental Status: mental status grossly normal Attitude: cooperative Assessment and Plan Assessment and Plan (1) Encounter for fitting and adjustment of vascular catheter: Status: Acute (2) 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 Right internal jugular, possible left Patient has been counseled as to the risks/benefits of the procedure. I have explained the risks of the surgery, including but not limited to: infection, bleeding, injury to any blood vessels/nerves, injury to lungs (such as pneumothorax or hemothorax and need for chest tube), not having any access, nonfunctioning of port due to thrombosis, infection of port, etc. the patient understands and agrees to proceed. I have answered all the patient's questions to the patient?s satisfaction and the patient has no further questions. Sofía Darden M.D. Pager: [phone] [facility] [address] [place] [address], [address] [place] [address] Office: 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
[2023-07-24] MEDS: Lactated Ringers 1,000 ML 15 ML IV (07:42)
[2023-07-24] MEDS: Cefazolin 2 GM in 0.9% Normal Saline (100mL Bag) 100 ML IV (08:26)
[2023-07-24] MEDS: Lidocaine 1% /Epi 1:100 (20ml) 20 ML Vial (08:40)
[2023-07-24] MEDS: Bupivacaine 0.5% PF 10 ML VIAL (08:40)
--- NOTE | 2023-07-24 09:04 | PCM.OPRPT ---
Report of Operation Date of Procedure: 07/24/23 Pre-Operative Diagnosis: z45.2, lung cancer Post-Operative Diagnosis: Same Surgery/Procedure Performed:: Placement of right IJ Port-A-Cath Use of fluoroscopy Use of ultrasound Surgeon: Sofía Darden Type of Anesthesia: Local MAC Anesthesiologist: Rob Sims Special Medications: Ancef 2 g IV x 1 Specimen's removed: none Estimated Blood Loss (mL): < 10 cc Description of Procedure: After informed consent was given, the patient was brought to the operating room and placed in the supine position. Appropriate time out protocol was followed. Patient was then given IV conscious sedation for anesthesia. The patient's right upper chest and neck were then prepped with a surgical skin preparation and sterile surgical drapes were placed. After proper landmarks were ascertained, the skin at the upper right chest area was then infiltrated with 1:1 mixture of 1% lidocaine with epinephrine and 0.5% marcaine. A needle trocar was then inserted into the right internal jugular vein with ultrasound guidance-multiple vessels were viewed with u/s and the right IJ was chosen-- and there was good aspiration of venous blood. A wire was then threaded into the needle trocar and this was visualized under fluoroscopy to ensure that the wire was in the superior vena cava. Once this was done, then the needle trocar was removed. A small skin paramjit was made with an 11 blade knife at the wire entrance site. The dilator with the introducer sheath attached was then placed over the wire into the right internal jugular vein via the Seldinger technique and this was visualized under fluoroscopy. The dilator and sheath were in proper position as visualized by fluoroscopy. A subcutaneous pocket was then created caudad to the catheter insertion site. A transverse skin incision was made after the skin and subcutaneous tissues were infiltrated with local anesthetic. Blunt dissection was then used to create a space large enough for placement of the subcutaneous port. The catheter was then tunneled into the subcutaneous pocket. The wire and dilator were then removed. The catheter was then threaded into the introducer sheath and was positioned with its tip at the junction of the superior vena cava and the right atrium as visualized under fluoroscopy. The excess catheter was transected. The catheter was then attached to the subcutaneous port using manufacturers guidelines. The catheter was flushed with a heparin saline mixture prior to placement. Hemostasis was carefully controlled with electrocautery. The port was sutured to the subcutaneous fascia using 2-0 Vicryl suture at two sites. The port was then placed in the subcutaneous pocket. The incision were reapproximated with interrupted subdermal 3-0 vicryl sutures. The skin was reapproximated with 3-0 nylon suture in a interrupted fashion. Steristrips were used for reinforcement of the skin closure at IJ insertion site and a sterile opsite dressings were applied. The patient tolerated the procedure well. Grafts/Implants Used: Bard PowerPort isp M.R.I. 6Fr Lot [id number] [id number] Complications none
--- NOTE | 2023-07-24 09:06 | DCINST_ITS ---
Discharge Instructions Procedure Port-A-Cath Diet Discharge Diet: Light diet - advance as tolerated Activity May shower in (days): 5 (Keep port site clean and dry x5 days. Neck incision okay to get wet after 1 day. Okay to lower shower and upper sponge bath. OR okay to taper off port site with a Ziploc bag to shower) Lifting Restrictions: No lifting > 15 pounds for 3 days with the arm on the side of the port Dressing / Incision Call your doctor if your incision/area has: Continuous Slow Oozing, Sudden Increased Bleeding, Increased Pain/ Swelling, Increased Redness, Foul Smelling Discharge and Swelling at the incision site Call your doctor if you observe: Fever of 101 or Higher Change Dressing in: 2 days (2-3 days- port site; ok to remove neck opsite in 1 day) Follow Up Care Please Follow Up With: Sofía Darden MD When: In 10 days for permanent suture removal?call office for appointment Test Results: Test results from this visit will be discussed in further detail at your follow- up appointment, if applicable. Discharge Plan Admission Attending Provider: Sofía Darden Primary Care Provider: Jamshid Kuhn Discharge Orders/Prescriptions Prescriptions: Continued tamsulosin 0.4 mg capsule 0.4 mg PO DAILY lidocaine-prilocaine 2.5-2.5 % cream 1 applic topical ONCE PRN (Reason: port access) 30 Days Qty: 30 2RF folic acid 1 mg tablet 1 mg PO DAILY Qty: 90 1RF dexamethasone 4 mg tablet 4 mg PO .COMPLEX Qty: 36 0RF Rx Instructions: 4 mg orally twice daily ONLY the day before, the day of, and the day after chemotherapy Combivent Respimat 20-100 mcg/actuation mist 1 puff INHALATION Q6H PRN (Reason: WHEEZING) meclizine 25 mg tablet 25 mg PO TID PRN (Reason: dizziness) Qty: 20 0RF ondansetron 4 mg tablet,disintegrating 8 mg PO Q8H PRN PRN (Reason: Nausea) Qty: 14 0RF fluticasone propionate 50 mcg/actuation spray,suspension 2 spray INTRANASAL DAILY Qty: 16 5RF Referrals / Follow Up: Jamshid Kuhn DO [Primary Care Provider] - Disposition Disposition (needs filled in before D/C Order can be placed): Home, Self Care
--- NOTE | 2023-07-24 09:15 | RAD_ITS ---
STUDY: X-RAY CHEST REASON FOR EXAM: Male, 78 years old. Thank you. Follow-up. TECHNIQUE: Single frontal view of the chest. COMPARISON: 02/28/2015 FINDINGS: New right internal jugular catheter with tip projected over the mid-SVC. Stable hyperinflation with mild diffuse interstitial prominence. There is no demonstrated pleural abnormality. Cardiomegaly unchanged. Normal mediastinum and lino. Normal visualized pulmonary arteries. Stable aortic tortuosity. No abnormality of the visualized soft tissue structures of the upper abdomen. RAD/CXR for Line Placement IMPRESSION: New right internal jugular catheter. Otherwise, stable chest with no acute or active cardiopulmonary disease. Electronically Signed: Kevin Luther MD at 9:31 EDT ,
== END 2023-07-24 10:51 | disposition home or self-care (01) ==
LOC: SDC 07:05 → AC 07:07
PROVIDERS: PCP Family Medicine; Referring Provider Family Medicine; Visit Provider Surgery
PROC: (CPT 36561; principal; 2023-07-24 08:25)
DX: Z45.2 Encounter for adjustment and management of vascular access device (principal); C79.31 Secondary malignant neoplasm of brain; C78.02 Secondary malignant neoplasm of left lung; C77.9 Secondary and unspecified malignant neoplasm of lymph node, unspecified; C34.90 Malignant neoplasm of unspecified part of unspecified bronchus or lung; J44.9 Chronic obstructive pulmonary disease, unspecified; G47.33 Obstructive sleep apnea (adult) (pediatric); Z87.891 Personal history of nicotine dependence; Z79.899 Other long term (current) drug therapy; Z86.16 Personal history of COVID-19
CPT/HCPCS: 36561; 00532; 71045; 77001; J7120; J2405

== ENCOUNTER 2023-07-29 09:32 | Emergency (ER) | payer MEDICARE, SELFPAY ==
[2023-07-29 09:34] VITALS: BP 146/82; PULSE 81; RESP 14; TEMP 36.2; O2SAT 98; BMI 26.1
--- NOTE | 2023-07-29 09:46 | CT_ITS ---
STUDY: CT BRAIN WITHOUT CONTRAST REASON FOR EXAM: Male, 78 years old. dizzy RADIATION DOSAGE (If Supplied By Facility): CTDIvol = ( 44.99 ) mGy, DLP = ( 863.60 ) mGycm TECHNIQUE: Transaxial CT imaging of the brain was performed without administration of intravenous contrast material. Individualized dose optimization techniques were used for this CT. COMPARISON: 07/07/2023 FINDINGS: Normal soft tissue structures. Status post right occipital craniotomy with focal insufflation right hemisphere and cerebellum.. Normal size ventricles and extra-axial spaces for the patient''s age. Normal white matter tracts of the cerebral hemispheres. Normal basal ganglia and thalami. Normal brainstem. Normal cerebellum. There is no intracranial hemorrhage. There are no findings of an acute ischemic infarction. Normal visualized paranasal sinuses. CT/Brain/Head without Contrast IMPRESSION: No acute abnormality. Electronically Signed: Nito Vang MD at 11:27 EDT ,
--- NOTE | 2023-07-29 09:47 | EKG12_ITS ---
Test Reason : Blood Pressure : / mmHG Vent. Rate : 079 BPM Atrial Rate : 079 BPM P-R Int : 152 ms QRS Dur : 070 ms QT Int : 358 ms P-R-T Axes : 071 023 062 degrees QTc Int : 410 ms Sinus rhythm with Premature atrial complexes with Aberrant conduction Nonspecific T wave abnormality Abnormal ECG Confirmed by CHARLIE RUIZ, GILMA ([id number]), science editor TIFFANIE SCHAFFER ([id number]) on 07/31/2023 11:10:07 AM Referred By: Confirmed By:GILMA GUERRA MD
--- NOTE | 2023-07-29 09:47 | RAD_ITS ---
STUDY: X-RAY CHEST REASON FOR EXAM: Male, 78 years old. dizzy TECHNIQUE: PA and lateral views of the chest. COMPARISON: 07/24/2023 FINDINGS: Right internal jugular chest port which is unchanged. The lungs are clear and expanded. There is no demonstrated pleural abnormality. Normal size heart. Normal mediastinum and lino. Normal visualized pulmonary arteries. Normal visualized aortic arch and descending thoracic aorta. Normal visualized thoracic spine. Normal visualized ribs, clavicles, and shoulders. There is no demonstrated abnormality of the visualized soft tissue structures of the upper abdomen. RAD/Chest PA and Lateral IMPRESSION: No active disease. Electronically Signed: Nito Vang MD at 11:29 EDT ,
[2023-07-29 10:09] VITALS: BP 136/78
[2023-07-29] MEDS: 0.9% Normal Saline (1000mL) 1,000 ML 1000 ML IV (10:16)
[2023-07-29 10:34] LABS: ALB/GLOB Ratio 0.9 RATIO (0.9-2.4); AST(SGOT) 26 U/L (15-37); Alanine Aminotransfer ALT/SGPT 30 U/L (16-61); Albumin, Serum 3.1 g/dL (3.2-5.0); Alkaline Phosphatase 90 U/L (45-117); Anion Gap 4 (5-15); BUN 33 mg/dL (7-18); Chloride 106 mmol/L (98-107); Creatinine, Serum 1.03 mg/dL (0.70-1.30); EST Glomerular Filtration Rate 74 mL/min (>60); Est Glom Filt Rate - Afr Amer 90 mL/min (>60); Estimated Creatinine Clearance 63.97 ml/min; Globulin 3.3 g/dL (2.2-4.2); Glucose 120 mg/dL (74-106); Potassium 3.8 mmol/L (3.5-5.1); Protein, Total 6.4 g/dL (6.4-8.2); Sodium Level 138 mmol/L (136-145); Troponin-I HS 9 pg/mL (3.0-78.0)
[2023-07-29 10:37] LABS: Absolute Lymphocyte Count 0.84 X10^3/uL (0.83-4.51); Absolute Neutrophil Count 8.2 X10^3/uL (2.0-7.7); Basophil# 0.01 X10^3/uL; Basophil% 0.1 % (0-1); Eosinophil# 0.03 X10^3/uL; Eosinophils% 0.3 % (0-5); Hematocrit 35.7 % (40-54); Hemoglobin 11.4 g/dL (13.0-16.5); Lymphocyte # 0.84 X10^3/ul (0.83-4.51); Lymphocyte % 9.1 % (19-41); Mean Corp Hgb Conc 31.9 g/dL (32-36); Mean Corpuscular Hgb 30.9 pg (27.0-32.0); Mean Corpuscular Volume 96.7 fL (80-94); Mean Platelet Vol. 9.5 fl (6.2-12.0); Monocyte# 0.11 X10^3/uL; Monocyte% 1.2 % (0-10); NRBC Flagged by Analyzer 0.2 % (0-5); Neutrophil # 8.22 X10^3/uL (2.7-7.7); Neutrophil % 88.8 % (47-70); Platelet Count 249 K/mm3 (150-450); RBC Distribution Width CV 14.2 % (11.6-14.6); RBC Distribution Width SD 50.1 fl (35.1-43.9); Red Blood Count 3.69 M/mm3 (4.6-6.2); White Blood Count 9.3 K/mm3 (4.4-11.0)
[2023-07-29 11:00] VITALS: BP 136/58; PULSE 85; RESP 23
[2023-07-29 12:00] VITALS: BP 144/76; PULSE 78; RESP 28; O2SAT 90
[2023-07-29 12:05] VITALS: BP 144/76; PULSE 78; RESP 28; TEMP 36.3; O2SAT 90
--- NOTE | 2023-07-29 13:37 | EX.ED.DYSGE1 ---
HPI History of Present Illness Chief Complaint: Dizziness Narrative Narrative: Patient is a 78-year-old male who is presenting to the ER with chief complaint of dizzy sensation, funny feeling to the left side of his forehead, and face. Patient states this been going on for approximately 7 to 8 days. Patient just had his first dose of chemotherapy on Monday, 3 days ago. Patient has lung cancer with areas of multiple metastasis. Initial primary source was lungs. They found a mass to the right occipital area of his brain, patient had surgery early April of this year to remove that. Patient also has a few spots to the left frontal aspect of his brain as well. 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 Patient did go radiation a month ago, and just started his first dose of chemotherapy on Monday. Patient does not have any headache. No neck pain. Patient says that he does have this funny sensation/dizziness sensation to left side of his forehead and left side of his face that has been intermittent but persistent for the past 7 8 days. Patient has not spoken to his oncologist about this sensation. He has no chest pain or shortness of breath. No abdominal pain, nausea vomiting, patient has no other acute complaints. Patient admits he does not drink enough water. Patient came into the infusion center yesterday get 1 bag of IV fluids. Patient has no other acute complaints. No falls, no upper or lower extremity complaints. No strokelike signs or symptoms. Patient's is at bedside. [facility] Medical History BPH (benign prostatic hyperplasia) Cancer COPD (chronic obstructive pulmonary disease) with emphysema COVID-19 Encounter for education Former tobacco use History of colonic polyps History of echocardiogram Malignant neoplasm metastatic to brain EFFIE (obstructive sleep apnea) Prostate disease Wears glasses Home Medications tamsulosin 0.4 mg capsule 0.4 mg PO DAILY PROSTATE 04/02/19 [History Last Taken 07/23/23] fluticasone propionate 50 mcg/actuation nasal spray,suspension 2 spray intranasal DAILY NASAL CONGESTION #16 grams 04/20/22 [Rx Last Taken 07/23/23] ipratropium 20 mcg-albuterol 100 mcg/actuation mist for inhalation (Combivent Respimat) 1 puff inhalation Q6H PRN WHEEZING 04/24/23 [History Last Taken 07/22/23] meclizine 25 mg tablet 25 mg PO TID PRN dizziness #20 tabs 07/07/23 [Rx Last Taken Unknown] ondansetron 4 mg disintegrating tablet 8 mg (2 x 4 mg) PO Q8H PRN PRN Nausea #14 tabs 07/07/23 [Rx Last Taken 07/22/23] dexamethasone 4 mg tablet 4 mg PO .COMPLEX #36 tabs 07/17/23 [Rx Last Taken Unknown] folic acid 1 mg tablet 1 mg PO DAILY #90 tabs 07/17/23 [Rx Last Taken 07/23/23] lidocaine-prilocaine 2.5 %-2.5 % topical cream 1 applic topical ONCE PRN port access 30 days #30 grams 07/17/23 [Rx Last Taken Unknown] Allergy/AdvReac Type Severity Reaction Status Date / Time Environmental Allergies: Allergy sneezing Verified 07/29/23 09:33 Uncoded [hay] animal dander AdvReac Mild Other Verified 07/29/23 09:33 oak AdvReac Mild Other Verified 07/29/23 09:33 moxifloxacin HCl AdvReac Nausea Verified 07/29/23 09:33 [From Avelox] prochlorperazine AdvReac Other Verified 07/29/23 09:33 [From Compazine] prochlorperazine edisylate AdvReac Other Verified 07/29/23 09:33 [From Compazine] prochlorperazine maleate AdvReac Other Verified 07/29/23 09:33 [From Compazine] Family History Father Hypertension Kidney disease Mother Hypertension CVA (cerebral vascular accident) Alzheimer disease Surgical History History of appendectomy History of back surgery History of colonoscopy History of esophagogastroduodenoscopy (EGD) History of excision of lesion History of left knee surgery History of right hemicolectomy Social History household members: spouse housing: house Smoking Status: Former smoker pack-years: 63 Tobacco: How many years used: 35 second hand exposure: No alcohol intake: current alcohol intake frequency: holidays/special occasions only Alcohol type: beer substance use type: does not use caffeine: Yes (3/day) ROS ROS ED ROS Narrative REVIEW OF SYSTEMS: Unless otherwise stated in this report the patient's positive and negative responses for review of systems for constitutional, eyes, ENT, cardiovascular, respiratory, gastrointestinal, neurological, , musculoskeletal, and integument systems and related systems to the presenting problem are either stated in the history of present illness or were not pertinent or were negative for the symptoms and/or complaints related to the presenting medical problem. EXAM Physical Exam Narrative Exam Narrative: Vital signs reviewed and patient is not hypoxic. General: The patient appears well and in no apparent distress. Patient is resting comfortably on cart. Not toxic, lethargic, or listless. Skin: Warm, dry, no pallor noted. There is no rash noted. Head: Normocephalic, atraumatic; patient has no tenderness to palpation to his left forehead, or to his left frontal, maxillary sinus. Full range of motion of cervical spine with no difficulty or pain. Patient has dry skin noted to both sides of his face, no rash that would suggest herpes zoster. This was discussed with daughter and patient at bedside. Eye: Normal conjunctiva, no drainage, EOMI. PERRL. Ears, Nose, Mouth, and Throat: oral mucosa is moist. Nares patent. Mouth without vesicles. Cardiovascular: Regular Rate and Rhythm, no murmurs, gallops, or rubs Respiratory: Patient is in no distress, no accessory muscle use, lungs are clear to auscultation, no wheezing, rales or rhonchi Back: non-tender, no CVA tenderness bilaterally to percussion. NO CTLS midline or paraspinal tenderness to palpation. GI: Soft, no tenderness to palpation, no masses appreciated. No rebound, guarding, or rigidity noted. Musculoskeletal: The patient has full range of motion of all extremities and joints with no difficulty. Patient has no motor, no sensory deficits. Neurological: A&O x4, normal speech, no focal neurological deficits. NIH 0 Psychiatric: Cooperative Const Vital Signs: 07/29/23 09:34 07/29/23 09:33 07/29/23 10:09 Temperature 97.1 F L Temperature Source Temporal Pulse Rate 81 Respiratory Rate 14 Respiratory Pattern Normal Blood Pressure 146/82 H 136/78 H Blood Pressure Mean 103 88 Pulse Ox 98 Oxygen Delivery Method Room Air 07/29/23 11:00 07/29/23 12:05 07/29/23 12:00 Temperature 97.3 F L Temperature Source Pulse Rate 85 78 78 Respiratory Rate 23 H 28 H 28 H Respiratory Pattern Blood Pressure 136/58 H 144/76 H 144/76 H Blood Pressure Mean 83 98 95 Pulse Ox 90 90 Oxygen Delivery Method MDM MDM MDM Narrative Medical decision making narrative: Patient EKG shows no acute changes, chest x-ray is negative. Patient had a CT of the brain that showed no acute findings. Patient felt slightly better after 1 L of IV fluid. Patient feels safe to be discharged. Patient not have any type of a chronic acute changes today. He has no vision or hearing changes. No strokelike signs or symptoms. Patient says that he will call his oncologist on Monday for follow-up and let them know of the symptoms that he is having. Patient has an MRI of the brain scheduled for the end of August to follow-up on the spots the left frontal aspect of his head. Patient, and daughter at bedside have no questions at discharge. Nursing staff recorded that patient's respiratory rate was elevated at discharge, along with oxygen level slightly low 90. I reauscultated the patient's lungs at discharge, no crackles, rales, wheezing. Patient is in no respiratory distress. Patient is also taking very short shallow breathing, slightly anxious. Patient feels safe to discharge, along with and daughter. Patient is in no respiratory distress. Patient walked out of the ER with no difficulty. Lab Data Labs: Laboratory Results - last 24 hr 07/29/23 10:12 WBC 9.3 RBC 3.69 L Hgb 11.4 L Hct 35.7 L MCV 96.7 H MCH 30.9 MCHC 31.9 L RDW Std Deviation 50.1 H RDW Coeff of [place] 14.2 Plt Count 249 MPV 9.5 Immature Gran % (Auto) 0.500 Neut % (Auto) 88.8 H Lymph % (Auto) 9.1 L [place] % (Auto) 1.2 Eos % (Auto) 0.3 Baso % (Auto) 0.1 Absolute Neuts (auto) 8.2 H Absolute Lymphs (auto) 0.84 Nucleated RBC % 0.2 Sodium 138 Potassium 3.8 Chloride 106 Carbon Dioxide 28.0 Anion Gap 4 L BUN 33 H Creatinine 1.03 Estim Creat Clear Calc 63.97 Est GFR (MDRD) Af Amer 90 Est GFR (MDRD) Non-Af 74 BUN/Creatinine Ratio 32.0 H Glucose 120 H Calcium 9.0 Total Bilirubin 0.80 AST 26 ALT 30 Alkaline Phosphatase 90 Troponin I High Sens 9 Total Protein 6.4 Albumin 3.1 L Globulin 3.3 Albumin/Globulin Ratio 0.9 Radiography Diagnostic Testing: Clinical Impression(s) from Imaging Studies Brain CT 07/29/23 09:46 IMPRESSION: No acute abnormality. Electronically Signed: Nito Vang MD at 11:27 EDT Reading Location ID and State: [id number] / [employer] Tel , Service support , Chest X-Ray 07/29/23 09:47 IMPRESSION: No active disease. Electronically Signed: Nito Vang MD at 11:29 EDT Reading Location ID and State: [id number] / [employer] Tel , Service support , Discharge Plan Triage Chief Complaint: Dizziness ED Provider: Casey Rodrigues Dx/Rx/DC Orders Clinical Impression: Dizziness, Dehydration, mild Instructions: ED Dehydration (Adult), ED Dizziness, Uncertain Cause Prescriptions: No Action tamsulosin 0.4 mg capsule 0.4 mg PO DAILY lidocaine-prilocaine 2.5-2.5 % cream 1 applic topical ONCE PRN (Reason: port access) 30 Days Qty: 30 2RF folic acid 1 mg tablet 1 mg PO DAILY Qty: 90 1RF dexamethasone 4 mg tablet 4 mg PO .COMPLEX Qty: 36 0RF Rx Instructions: 4 mg orally twice daily ONLY the day before, the day of, and the day after chemotherapy Combivent Respimat 20-100 mcg/actuation mist 1 puff INHALATION Q6H PRN (Reason: WHEEZING) meclizine 25 mg tablet 25 mg PO TID PRN (Reason: dizziness) Qty: 20 0RF ondansetron 4 mg tablet,disintegrating 8 mg PO Q8H PRN PRN (Reason: Nausea) Qty: 14 0RF fluticasone propionate 50 mcg/actuation spray,suspension 2 spray INTRANASAL DAILY Qty: 16 5RF Primary Care Provider: Jamshid Kuhn Referrals: Jamshid Kuhn DO [Primary Care Provider] - Activity Restrictions/Additional Instructions: Call your oncologist as discussed on Monday for any other questions or recommendations. Continue to increase propel, Gatorade, Powerade as discussed at bedside. A copy of your CT report was given to you as well. Disposition Disposition: Home, Self Care Discharge Date/Time: 07/29/23 12:30
== END 2023-07-29 12:30 | disposition home or self-care (01) ==
PROVIDERS: Emergency Provider Emergency Medicine; PCP Family Medicine; Visit Provider Emergency Medicine
DX: R42 Dizziness and giddiness (principal); C79.71 Secondary malignant neoplasm of right adrenal gland; C79.72 Secondary malignant neoplasm of left adrenal gland; C79.31 Secondary malignant neoplasm of brain; C34.90 Malignant neoplasm of unspecified part of unspecified bronchus or lung; J44.9 Chronic obstructive pulmonary disease, unspecified; E86.0 Dehydration; G47.33 Obstructive sleep apnea (adult) (pediatric); Z86.16 Personal history of COVID-19; Z87.891 Personal history of nicotine dependence
CPT/HCPCS: 36591; 70450; 71046; 80053; 84484; 85025; 93005; 99283; J7030; A4216

== ENCOUNTER 2023-07-31 10:15 | Emergency (ER) | payer MEDICARE, SELFPAY ==
[2023-07-31 10:16] VITALS: BP 115/81; PULSE 95; RESP 16; TEMP 36.2; O2SAT 96; BMI 24.8
--- NOTE | 2023-07-31 10:31 | EKG12_ITS ---
Test Reason : FALL Blood Pressure : / mmHG Vent. Rate : 096 BPM Atrial Rate : 000 BPM P-R Int : 000 ms QRS Dur : 076 ms QT Int : 336 ms P-R-T Axes : 000 022 085 degrees QTc Int : 424 ms Atrial fibrillation Nonspecific ST and T wave abnormality Abnormal ECG Confirmed by CHARLIE RUIZ, GILMA ([id number]), commissioning editor TIFFANIE SCHAFFER ([id number]) on 08/01/2023 8:21:59 AM Referred By: Confirmed By:GILMA GUERRA MD
--- NOTE | 2023-07-31 10:32 | EX.ED.DYSGE1 ---
HPI History of Present Illness Chief Complaint: Dizziness Detail of Chief Complaint: Dizziness Informant: patient Narrative Narrative: Patient presents with dizziness that started 3 days ago at least. Patient was seen in the emergency department on the for similar complaint. Patient tells me he had chemotherapy 5 days ago for stage IV lung cancer with mets to the liver and apparently he also has a large adrenal mass. Patient denies vertiginous symptoms. He states he is dizzy all the time. Today states that he was more confused so she brought him in for evaluation. He has had no fever or chills or sweats. He denies chest pain or shortness of breath. [facility] Medical History BPH (benign prostatic hyperplasia) Cancer COPD (chronic obstructive pulmonary disease) with emphysema COVID-19 Encounter for education Former tobacco use History of colonic polyps History of echocardiogram Malignant neoplasm metastatic to brain EFFIE (obstructive sleep apnea) Prostate disease Wears glasses Home Medications tamsulosin 0.4 mg capsule 0.4 mg PO DAILY PROSTATE 04/02/19 [History Last Taken 07/23/23] fluticasone propionate 50 mcg/actuation nasal spray,suspension 2 spray intranasal DAILY NASAL CONGESTION #16 grams 04/20/22 [Rx Last Taken 07/23/23] ipratropium 20 mcg-albuterol 100 mcg/actuation mist for inhalation (Combivent Respimat) 1 puff inhalation Q6H PRN WHEEZING 04/24/23 [History Last Taken 07/22/23] dexamethasone 4 mg tablet 4 mg PO .COMPLEX #36 tabs 07/17/23 [Rx Last Taken Unknown] folic acid 1 mg tablet 1 mg PO DAILY #90 tabs 07/17/23 [Rx Last Taken 07/23/23] lidocaine-prilocaine 2.5 %-2.5 % topical cream 1 applic topical ONCE PRN port access 30 days #30 grams 07/17/23 [Rx Last Taken Unknown] Allergy/AdvReac Type Severity Reaction Status Date / Time Environmental Allergies: Allergy sneezing Verified 07/31/23 10:16 Uncoded [hay] animal dander AdvReac Mild Other Verified 07/31/23 10:16 oak AdvReac Mild Other Verified 07/31/23 10:16 moxifloxacin HCl AdvReac Nausea Verified 07/31/23 10:16 [From Avelox] prochlorperazine AdvReac Other Verified 07/31/23 10:16 [From Compazine] prochlorperazine edisylate AdvReac Other Verified 07/31/23 10:16 [From Compazine] prochlorperazine maleate AdvReac Other Verified 07/31/23 10:16 [From Compazine] Family History Father Hypertension Kidney disease Mother Hypertension CVA (cerebral vascular accident) Alzheimer disease Surgical History History of appendectomy History of back surgery History of colonoscopy History of esophagogastroduodenoscopy (EGD) History of excision of lesion History of left knee surgery History of right hemicolectomy Social History household members: spouse housing: house Smoking Status: Former smoker pack-years: 63 Tobacco: How many years used: 35 second hand exposure: No alcohol intake: current alcohol intake frequency: holidays/special occasions only Alcohol type: beer substance use type: does not use caffeine: Yes (3/day) ROS ROS ED Review of Systems ROS Unobtainable: other Constitutional Constitutional ED: Reports lethargy; Denies chills, fever(s), sweats or weight loss Eyes Eyes: Denies blurry vision, change in vision or diplopia ENT ENT ED: Denies rhinorrhea or sore throat Cardiovascular Cardiovascular: Denies chest pain, orthopnea or racing heartbeat Respiratory/Chest Respiratory/Chest: Denies cough, dyspnea, dyspnea on exertion, orthopnea or sputum Gastrointestinal Gastrointestinal: Denies abdominal pain, diarrhea, nausea or vomiting Genitourinary Genitourinary ED: Denies dysuria, hematuria or urinary frequency Musculoskeletal Musculoskeletal: Denies arthralgias, back pain, myalgias or neck pain Integumentary Denies abscess, Abrasions or rash Neurologic Neurologic: Reports other Details: Dizziness ; Denies headache(s) or weakness Psychiatric Psychiatric: Denies anxiety, depression or suicidal thoughts Endocrine Endocrinology: Denies polydipsia, polyphagia or polyuria Hematologic/Lymphatic Hematologic/Lymphatic: Denies easy bleeding, easy bruising or lymphadenopathy Allergic/Immunologic Allergic/Immunologic ED: Denies mouth swelling, tongue swelling or urticaria EXAM Physical Exam Const Vital Signs: 07/31/23 10:16 07/31/23 10:15 07/31/23 10:34 Temperature 97.1 F L Temperature Source Temporal Pulse Rate 95 Pulse Rate [Lying] 81 Pulse Rate [Sitting (for 1 minute prior to obtaining)] 89 Pulse Rate [Standing (for 1 minute prior to obtaining)] 124 H Respiratory Rate 16 Respiratory Effort Normal Non-Labored Respiratory Pattern Normal Blood Pressure 115/81 H Blood Pressure [Lying] 118/78 Blood Pressure [Sitting (for 1 minute prior to obtaining)] 115/73 Blood Pressure [Standing (for 1 minute prior to obtaining)] 109/72 Blood Pressure Mean 92 Blood Pressure Mean [Lying] 91 Blood Pressure Mean [Sitting (for 1 minute prior to obtaining)] 87 Blood Pressure Mean [Standing (for 1 minute prior to obtaining)] 84 Pulse Ox 96 Oxygen Delivery Method Room Air Positive well nourished and well developed General Appearance ED: well developed and NAD HEENT Reports TM's clear and moist mucous membranes normocephalic and atraumatic; Negative for trauma or tenderness Tympanic Membrane ED: Yes TM's clear Eyes PERRL and EOMs intact bilaterally General Eye ED: Negative for pale conjunctiva or scleral icterus Neck no lymphadenopathy, supple and no JVD General: Negative for tenderness Chest Wall inspection of chest normal and palpation of chest normal Chest: Negative for tenderness Resp normal respiratory effort and clear to auscultation bilaterally Effort and Inspection: Negative for respiratory distress or pain with movement Auscultation: Negative for rhonchi, wheezes or diminished lung sounds Cardio regular rate, regular rhythm, S1 normal heart sound, S2 normal heart sound and no murmurs Peripheral Pulses: pulses 2+ throughout GI normal to inspection, nondistended, normoactive bowel sounds, soft to palpation, non-tender, non-distended and no masses Back/Spine no CVA tenderness and no thoracic nor lumbar tenderness Extremity normal to inspection General Extremety ED: Negative for edema General Extremity: Negative for edema Neuro oriented x3, CN's II-XII intact bilaterally, no sensory deficits noted and gait normal Neuro Narrative: Finger-nose and heel mccallum testing within normal limits, negative Romberg, negative for drift, fundi benign. Negative Hallpike maneuver. Sensorium / Orientation: awake, alert, oriented to person, oriented to place and oriented to time Motor Exam: strength 5/5 throughout and strength abnormal Psych mental status grossly normal Skin no rashes or lesions noted and no wounds MDM MDM MDM Narrative Medical decision making narrative: Patient presents with nondescript dizziness and some confusion today. Seen in the emergency department for similar complaint 2 days ago and had a CT scan of the brain that essentially was unremarkable for acute process. No evidence of hydrocephalus. IV line established. CBC with differential white count 7.1 with hemoglobin 11 and platelet count of 225. Chemistries unremarkable. BUN was 31 and creatinine 0.92. He had orthostatic vital signs that were negative. He was given normal saline fluid. Urinalysis was normal. I did not feel any further imaging was indicated. He had a negative Hallpike. Patient tells me that he did have a brain tumor on the right side of his brain that was resected in April. He had an MRI of his brain and June that showed some spots still left to the right side of the brain that were just got a monitor that. He was recently started chemotherapy 5 days ago. He is not neutropenic. Clinically he looks well and is ANO x 3. I do not feel any further workup is indicated. Patient will be discharged to home. Family in agreement with plan and they will follow-up with their oncologist. Lab Data Attestation: I reviewed the patient's lab results. Labs: Laboratory Results - last 24 hr 07/31/23 07/31/23 11:00 11:40 WBC 7.1 RBC 3.61 L Hgb 11.0 L Hct 34.0 L MCV 94.2 H MCH 30.5 MCHC 32.4 RDW Std Deviation 47.8 H RDW Coeff of [place] 13.8 Plt Count 225 MPV 9.3 Immature Gran % (Auto) 0.600 Neut % (Auto) 87.2 H Lymph % (Auto) 9.1 L [place] % (Auto) 1.1 Eos % (Auto) 1.7 Baso % (Auto) 0.3 Absolute Neuts (auto) 6.2 Absolute Lymphs (auto) 0.65 L Nucleated RBC % 0 Sodium 137 Potassium 4.1 Chloride 104 Carbon Dioxide 27.0 Anion Gap 6 BUN 31 H Creatinine 0.92 Estim Creat Clear Calc 71.62 Est GFR (MDRD) Af Amer 103 Est GFR (MDRD) Non-Af 85 BUN/Creatinine Ratio 33.8 H Glucose 116 H Calcium 9.2 Total Bilirubin 1.40 H AST 21 ALT 23 Alkaline Phosphatase 93 Troponin I High Sens 8 Total Protein 6.5 Albumin 3.1 L Globulin 3.4 Albumin/Globulin Ratio 0.9 Urine Color Yellow Urine Clarity Clear Urine pH 7.0 Ur Specific [place] 1.010 Urine Protein 30 H Urine Glucose (UA) Normal Urine Ketones 5 H Urine Occult Blood 10 H Urine Nitrite Negative Urine Bilirubin Negative Urine Urobilinogen 4 H Ur Leukocyte Esterase Negative Urine RBC 0 SEEN Urine WBC 0 SEEN Ur Squamous Epith Cells 0 SEEN Urine Bacteria 0 SEEN Urine Mucus 0 SEEN EKG Initial EKG: Attestation: I personally reviewed and interpreted this EKG as follows: Comments: Atrial fibrillation with rate of [address] changes Discharge Plan Triage Chief Complaint: Dizziness ED Provider: Maira Membreno Dx/Rx/DC Orders Clinical Impression: Dizziness, Acute confusion Instructions: ED Confusion, ED Dizziness, Uncertain Cause Prescriptions: No Action tamsulosin 0.4 mg capsule 0.4 mg PO DAILY lidocaine-prilocaine 2.5-2.5 % cream 1 applic topical ONCE PRN (Reason: port access) 30 Days Qty: 30 2RF folic acid 1 mg tablet 1 mg PO DAILY Qty: 90 1RF dexamethasone 4 mg tablet 4 mg PO .COMPLEX Qty: 36 0RF Rx Instructions: 4 mg orally twice daily ONLY the day before, the day of, and the day after chemotherapy Combivent Respimat 20-100 mcg/actuation mist 1 puff INHALATION Q6H PRN (Reason: WHEEZING) fluticasone propionate 50 mcg/actuation spray,suspension 2 spray INTRANASAL DAILY Qty: 16 5RF Primary Care Provider: Jamshid Kuhn Referrals: Jamshid Kuhn DO [Primary Care Provider] - 3-5 Days Activity Restrictions/Additional Instructions: Follow-up with your oncologist as needed Disposition Disposition: Home, Self Care
[2023-07-31 10:34] VITALS: BP 109/72; BP 115/73; BP 118/78; PULSE 124; PULSE 81; PULSE 89
[2023-07-31] MEDS: 0.9% Normal Saline (1000mL) 1,000 ML 150 ML IV (11:08)
[2023-07-31 11:17] LABS: Absolute Lymphocyte Count 0.65 X10^3/uL (0.83-4.51); Absolute Neutrophil Count 6.2 X10^3/uL (2.0-7.7); Basophil# 0.02 X10^3/uL; Basophil% 0.3 % (0-1); Eosinophil# 0.12 X10^3/uL; Eosinophils% 1.7 % (0-5); Lymphocyte # 0.65 X10^3/ul (0.83-4.51); Lymphocyte % 9.1 % (19-41); Mean Corp Hgb Conc 32.4 g/dL (32-36); Mean Corpuscular Hgb 30.5 pg (27.0-32.0); Mean Corpuscular Volume 94.2 fL (80-94); Mean Platelet Vol. 9.3 fl (6.2-12.0); Monocyte# 0.08 X10^3/uL; Monocyte% 1.1 % (0-10); NRBC Flagged by Analyzer 0 % (0-5); Neutrophil # 6.23 X10^3/uL (2.7-7.7); Neutrophil % 87.2 % (47-70); POSITIVE MORPHOLOGY YES; Platelet Count 225 K/mm3 (150-450); RBC Distribution Width CV 13.8 % (11.6-14.6); RBC Distribution Width SD 47.8 fl (35.1-43.9); Red Blood Count 3.61 M/mm3 (4.6-6.2); White Blood Count 7.1 K/mm3 (4.4-11.0)
[2023-07-31 11:18] LABS: Differential Indicated SCAN CRITERIA MET
[2023-07-31 11:45] LABS: ALB/GLOB Ratio 0.9 RATIO (0.9-2.4); AST(SGOT) 21 U/L (15-37); Alanine Aminotransfer ALT/SGPT 23 U/L (16-61); Albumin, Serum 3.1 g/dL (3.2-5.0); Alkaline Phosphatase 93 U/L (45-117); Anion Gap 6 (5-15); BUN 31 mg/dL (7-18); BUN/Creat Ratio 33.8 RATIO (10-20); Calcium,Total 9.2 mg/dL (8.5-10.1); Chloride 104 mmol/L (98-107); Creatinine, Serum 0.92 mg/dL (0.70-1.30); EST Glomerular Filtration Rate 85 mL/min (>60); Est Glom Filt Rate - Afr Amer 103 mL/min (>60); Estimated Creatinine Clearance 71.62 ml/min; Globulin 3.4 g/dL (2.2-4.2); Glucose 116 mg/dL (74-106); Potassium 4.1 mmol/L (3.5-5.1); Protein, Total 6.5 g/dL (6.4-8.2); Sodium Level 137 mmol/L (136-145); Troponin-I HS 8 pg/mL (3.0-78.0)
[2023-07-31 11:47] LABS: Bacteria 0 SEEN /hpf (None Seen); Mucous, Urine 0 SEEN /hpf (<or=2+); Red Blood Cells-Urine 0 SEEN /hpf (0-5); Squamous Epithelial Cells - UA 0 SEEN /hpf (0-5); White Blood Cells 0 SEEN /hpf (0-5)
[2023-07-31 11:51] LABS: Color, Urine Yellow (Yellow); Glucose, Dipstick Normal (Normal); Ketone-Dipstick 5 mg/dl (Negative); Leukocyte Esterase-Dipstick Negative /ul (Negative); Nitrite-Dipstick Negative (Negative); Occult Blood-Urine 10 /ul (Negative); Protein-Dipstick 30 mg/dl (Negative); Urine Bilirubin Dipstick Negative (Negative); Urine Clarity Clear (Clear); Urine Urobilinogen 4 mg/dl (Normal)
[2023-07-31 12:10] VITALS: BP 141/76; PULSE 76; RESP 19; TEMP 36.9; O2SAT 93
== END 2023-07-31 12:26 | disposition home or self-care (01) ==
PROVIDERS: Emergency Provider Emergency Medicine; PCP Family Medicine; Visit Provider Emergency Medicine
DX: R42 Dizziness and giddiness (principal); J44.9 Chronic obstructive pulmonary disease, unspecified; D49.6 Neoplasm of unspecified behavior of brain; R41.0 Disorientation, unspecified; G47.33 Obstructive sleep apnea (adult) (pediatric); Z87.891 Personal history of nicotine dependence; Z86.16 Personal history of COVID-19; Z86.010 Personal history of colon polyps
CPT/HCPCS: 36591; 80053; 81001; 84484; 85025; 93005; 99285; A4216

== ENCOUNTER → 2023-08-07 | Outpatient (CLI) | payer MEDICARE, SELFPAY ==
--- NOTE | 2023-08-07 15:49 | VDLE_ITS ---
Reason For Study: LLE Pain RIGHT LEFT CFV is compressible, spontaneous, phasic, GSV is normal. competent and demonstrates normal CFV is compressible, spontaneous, phasic, augmentation. competent, and demonstrates normal Procedure augmentation. This is a venous duplex using B-mode, color FV is compressible, spontaneous, phasic, flow and spectral Doppler. competent and demonstrates normal Exam performed in department. augmentation. The exam was diagnostic. POP V is compressible. Rouleaux flow noted. A preliminary report was called and/or faxed T/P Trunk is compressible. to Wendi @ [facility]. PTV is compressible. Acute deep vein thrombosis is noted in the Per V. It is dilated and NONCOMPRESSIBLE. Acute deep vein thrombosis is noted in the SOLEAL V . It is dilated and NONCOMPRESSIBLE. VL/Venous Duplex US, Unilateral Interpretation Summary Acute deep vein thrombosis is noted in the left peroneal vein, soleal vein Ordering Physician: Iris Sharpe Referring Physician: Jamshid Kuhn Performed By: Girma Chavez RVT
== END | disposition home or self-care (01) ==
LOC: CVS 15:48
PROVIDERS: PCP Family Medicine; Referring Provider Nurse Practitioner Family; Visit Provider Nurse Practitioner Family
DX: M79.662 Pain in left lower leg (principal)
CPT/HCPCS: 93971

== ENCOUNTER → 2023-08-08 | Outpatient (CLI) | payer MEDICARE, SELFPAY ==
--- NOTE | 2023-08-08 12:37 | EKG12_ITS ---
Test Reason : ARRYTHMIA Blood Pressure : / mmHG Vent. Rate : 075 BPM Atrial Rate : 075 BPM P-R Int : 142 ms QRS Dur : 084 ms QT Int : 378 ms P-R-T Axes : 082 037 067 degrees QTc Int : 422 ms Sinus rhythm with Premature supraventricular complexes and with occasional Premature ventricular comp lexes Otherwise normal ECG Confirmed by IDANIA RUIZ, RICHARD ([id number]), greeting card editor RADHA STEPHENSON ([id number]) on 08/14/2023 1:29:46 PM Referred By: Iris Sharpe Confirmed By:AURY EMERSON MD
== END | disposition home or self-care (01) ==
LOC: PSN 12:36
PROVIDERS: PCP Family Medicine; Referring Provider Nurse Practitioner Family; Visit Provider Nurse Practitioner Family
DX: I49.9 Cardiac arrhythmia, unspecified (principal); E87.6 Hypokalemia; M79.662 Pain in left lower leg
CPT/HCPCS: 93005

== ENCOUNTER 2023-08-27 10:45 | Emergency (ER) | payer MEDICARE, SELFPAY ==
[2023-08-27 10:46] VITALS: BP 129/107; PULSE 89; RESP 16; TEMP 36.9; O2SAT 98; BMI 24.5
--- NOTE | 2023-08-27 11:30 | RAD_ITS ---
STUDY: X-RAY - ABDOMEN/PELVIS REASON FOR EXAM: Male, 78 years old. Abdominal pain and distention TECHNIQUE: COMPARISON: None. FINDINGS: Normal visualized lung bases. There is an unremarkable bowel gas pattern. There is no demonstrated free abdominal air. The visualized liver, spleen and kidneys are grossly normal in size and morphology. Normal soft tissue structures. There are diffuse degenerative changes of the visualized lumbar spine. RAD/Abdomen Single View (Portable) IMPRESSION: No abnormal findings Electronically Signed: Fransisco Osborn MD at 12:28 EDT ,
--- NOTE | 2023-08-27 11:30 | ED.VIS.GI ---
HPI HPI - GI History of Present Illness Chief Complaint: Constipation Detail of Chief Complaint: Constipation Informant: patient and spouse/S.O. Narrative Narrative: Patient presents to the emergency department complaint constipation. Patient states that he has not had a bowel movement about 5 or 6 days. He over the last 2 weeks has had iron infusions x 2. He noticed with the first iron infusion his stool became hard and black. Second iron infusion was last week. Passed a very small hard stool this morning. He describes some mild discomfort in his abdomen. He had no vomiting but some mild nausea. He takes daily Colace. Denies any change in his diet. Does not take any narcotic pain medication. 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 He is not sure where the original source was. [facility] Medical History Anemia BPH (benign prostatic hyperplasia) Cancer COPD (chronic obstructive pulmonary disease) with emphysema COVID-19 Encounter for education Former tobacco use History of colonic polyps History of echocardiogram Hypokalemia Irregular heart rhythm Left leg DVT Malignant neoplasm metastatic to brain EFFIE (obstructive sleep apnea) Pain of left calf Prostate disease Wears glasses Home Medications tamsulosin 0.4 mg capsule 0.4 mg PO DAILY PROSTATE 04/02/19 [History Last Taken 07/23/23] fluticasone propionate 50 mcg/actuation nasal spray,suspension 2 spray intranasal DAILY NASAL CONGESTION #16 grams 04/20/22 [Rx Last Taken 07/23/23] ipratropium 20 mcg-albuterol 100 mcg/actuation mist for inhalation (Combivent Respimat) 1 puff inhalation Q6H PRN WHEEZING 04/24/23 [History Last Taken 07/22/23] dexamethasone 4 mg tablet 4 mg PO .COMPLEX #36 tabs 07/17/23 [Rx Last Taken Unknown] folic acid 1 mg tablet 1 mg PO DAILY #90 tabs 07/17/23 [Rx Last Taken 07/23/23] lidocaine-prilocaine 2.5 %-2.5 % topical cream 1 applic topical ONCE PRN port access 30 days #30 grams 07/17/23 [Rx Last Taken Unknown] apixaban 5 mg (74 tabs) tablets in a dose pack (Eliquis DVT-PE Treat 30D Start) 5 mg PO ONCE #74 tabs 08/07/23 [Rx Last Taken Unknown] potassium chloride 20 mEq tablet,extended release(part/cryst) 20 meq PO DAILY #3 tabs 08/07/23 [Rx Last Taken Unknown] apixaban 5 mg tablet 5 mg PO BID #60 tabs 08/22/23 [Rx Last Taken Unknown] ondansetron 8 mg disintegrating tablet 8 mg PO Q8H PRN nausea and vomiting #30 tabs 08/22/23 [Rx Last Taken Unknown] magnesium citrate 150 ml PO BID #296 mL 08/27/23 [Rx Last Taken Unknown] Allergy/AdvReac Type Severity Reaction Status Date / Time Environmental Allergies: Allergy sneezing Verified 08/27/23 10:45 Uncoded [hay] animal dander AdvReac Mild Other Verified 08/27/23 10:45 oak AdvReac Mild Other Verified 08/27/23 10:45 moxifloxacin HCl AdvReac Nausea Verified 08/27/23 10:45 [From Avelox] prochlorperazine AdvReac Other Verified 08/27/23 10:45 [From Compazine] prochlorperazine edisylate AdvReac Other Verified 08/27/23 10:45 [From Compazine] prochlorperazine maleate AdvReac Other Verified 08/27/23 10:45 [From Compazine] Family History Father Hypertension Kidney disease Mother Hypertension CVA (cerebral vascular accident) Alzheimer disease Surgical History History of appendectomy History of back surgery History of colonoscopy History of esophagogastroduodenoscopy (EGD) History of excision of lesion History of left knee surgery History of right hemicolectomy Social History household members: spouse housing: house Smoking Status: Former smoker pack-years: 63 Tobacco: How many years used: 35 second hand exposure: No alcohol intake: current alcohol intake frequency: holidays/special occasions only Alcohol type: beer substance use type: does not use caffeine: Yes (3/day) ROS ROS ED Review of Systems ROS Unobtainable: other Constitutional Constitutional ED: Reports lethargy; Denies chills, fever(s), sweats or weight loss Eyes Eyes: Denies blurry vision, change in vision or diplopia ENT ENT ED: Denies rhinorrhea or sore throat Cardiovascular Cardiovascular: Denies chest pain, orthopnea or racing heartbeat Respiratory/Chest Respiratory/Chest: Denies cough, dyspnea, dyspnea on exertion, orthopnea or sputum Gastrointestinal Gastrointestinal: Reports constipation and nausea; Denies abdominal pain, diarrhea or vomiting Genitourinary Genitourinary ED: Denies dysuria, hematuria or urinary frequency Musculoskeletal Musculoskeletal: Denies arthralgias, back pain, myalgias or neck pain Integumentary Denies abscess, Abrasions or rash Neurologic Neurologic: Denies headache(s) or weakness Psychiatric Psychiatric: Denies anxiety, depression or suicidal thoughts Endocrine Endocrinology: Denies polydipsia, polyphagia or polyuria Hematologic/Lymphatic Hematologic/Lymphatic: Denies easy bleeding, easy bruising or lymphadenopathy Allergic/Immunologic Allergic/Immunologic ED: Denies mouth swelling, tongue swelling or urticaria EXAM Physical Exam Const Vital Signs: 08/27/23 10:46 Temperature 98.4 F Temperature Source Temporal Pulse Rate 89 Respiratory Rate 16 Blood Pressure 129/107 H Blood Pressure Mean 114 Pulse Ox 98 Oxygen Delivery Method Room Air Positive well nourished and well developed General Appearance ED: well developed and NAD HEENT Reports TM's clear and moist mucous membranes normocephalic and atraumatic; Negative for trauma or tenderness Tympanic Membrane ED: Yes TM's clear Eyes PERRL and EOMs intact bilaterally General Eye ED: Negative for pale conjunctiva or scleral icterus Neck no lymphadenopathy, supple and no JVD General: Negative for tenderness Chest Wall inspection of chest normal and palpation of chest normal Chest: Negative for tenderness Resp normal respiratory effort and clear to auscultation bilaterally Effort and Inspection: Negative for respiratory distress or pain with movement Auscultation: Negative for rhonchi, wheezes or diminished lung sounds Cardio regular rate, regular rhythm, S1 normal heart sound, S2 normal heart sound and no murmurs Peripheral Pulses: pulses 2+ throughout GI normal to inspection, nondistended, normoactive bowel sounds, soft to palpation, non-tender, non-distended and no masses Back/Spine no CVA tenderness and no thoracic nor lumbar tenderness Extremity normal to inspection General Extremety ED: Negative for edema General Extremity: Negative for edema Neuro oriented x3, CN's II-XII intact bilaterally, no sensory deficits noted and gait normal Sensorium / Orientation: awake, alert, oriented to person, oriented to place and oriented to time Motor Exam: strength 5/5 throughout and strength abnormal Psych mental status grossly normal Skin no rashes or lesions noted and no wounds MDM MDM MDM Narrative Medical decision making narrative: Patient presents with constipation after receiving iron infusion therapy. His abdominal exam is benign and clinically he looks well. A KUB was obtained that showed moderate amount of stool throughout the colon without evidence for bowel obstruction or bowel perforation. Patient was given a soapsuds enema and had good results with that with 5 large hard pieces of stool that were expressed. This point will discharge to home with a bottle of magnesium citrate. Advised to follow-up with primary care physician within next 3 to 5 days. Radiography Diagnostic Testing: Clinical Impression(s) from Imaging Studies KUB X-Ray 08/27/23 11:30 IMPRESSION: No abnormal findings Electronically Signed: Fransisco Osborn MD at 12:28 EDT , 1 view KUB obtained interpreted by myself as moderate amount of stool throughout the colon without evidence for bowel obstruction or bowel perforation. Discharge Plan Triage Chief Complaint: Constipation ED Provider: Maira Membreno Dx/Rx/DC Orders Clinical Impression: Constipation Instructions: Treating Constipation, ED Constipation (Adult) Prescriptions: New magnesium citrate Solution 150 ml PO BID Qty: 296 0RF No Action tamsulosin 0.4 mg capsule 0.4 mg PO DAILY lidocaine-prilocaine 2.5-2.5 % cream 1 applic topical ONCE PRN (Reason: port access) 30 Days Qty: 30 2RF folic acid 1 mg tablet 1 mg PO DAILY Qty: 90 1RF dexamethasone 4 mg tablet 4 mg PO .COMPLEX Qty: 36 0RF Rx Instructions: 4 mg orally twice daily ONLY the day before, the day of, and the day after chemotherapy Eliquis DVT-PE Treat 30D Start 5 mg (74 tabs) tablets,dose pack 5 mg PO ONCE Qty: 74 0RF potassium chloride 20 mEq tablet,ER particles/crystals 20 meq PO DAILY Qty: 3 0RF Combivent Respimat 20-100 mcg/actuation mist 1 puff INHALATION Q6H PRN (Reason: WHEEZING) fluticasone propionate 50 mcg/actuation spray,suspension 2 spray INTRANASAL DAILY Qty: 16 5RF apixaban 5 mg tablet 5 mg PO BID Qty: 60 2RF ondansetron 8 mg tablet,disintegrating 8 mg PO Q8H PRN (Reason: nausea and vomiting) Qty: 30 2RF Primary Care Provider: Jamshid Kuhn Referrals: Jamshid Kuhn DO [Primary Care Provider] - Disposition Disposition: Home, Self Care
== END 2023-08-27 14:57 | disposition home or self-care (01) ==
PROVIDERS: Emergency Provider Emergency Medicine; PCP Family Medicine; Visit Provider Emergency Medicine
DX: K59.00 Constipation, unspecified (principal); C79.31 Secondary malignant neoplasm of brain; C78.00 Secondary malignant neoplasm of unspecified lung; C78.7 Secondary malignant neoplasm of liver and intrahepatic bile duct; C80.1 Malignant (primary) neoplasm, unspecified; N40.0 Benign prostatic hyperplasia without lower urinary tract symptoms; Z79.01 Long term (current) use of anticoagulants; Z79.899 Other long term (current) drug therapy; Z87.891 Personal history of nicotine dependence
CPT/HCPCS: 74018; 99284

== ENCOUNTER → 2023-08-30 | Outpatient (CLI) | payer MEDICARE, SELFPAY ==
--- NOTE | 2023-08-30 08:10 | CT_ITS ---
STUDY: CT CHEST, ABDOMEN T PELVIS WITH CONTRAST REASON FOR EXAM: Male, 78 years old. ASSESS TREATMENT RESPONSE-IV ONLY-LUNG CA RADIATION DOSAGE (If Supplied By Facility): CTDIvol = ( 13.17 ) mGy, DLP = ( 1203.88 ) mGycm TECHNIQUE: Transaxial imaging was performed following intravenous administration of IV 100mL Isovue-300. Multiplanar coronal and sagittal images were reformatted. Individualized dose optimization techniques were used for this CT. COMPARISON: Comparison is made with prior chest radiograph dated July 29, 2023. FINDINGS: CHEST A right-sided Port-A-Cath is seen with the tip in the superior vena cava. Hyperinflation. Emphysematous changes more pronounced in the upper lobes. Linear scarring is seen in the anterior medial aspect of the lingular segment of the left upper lobe. Mild linear scarring in both lower lobes. No pulmonary mass lesion or infiltration is seen. There is no demonstrated pleural abnormality. There are calcifications of the coronary arteries. Normal mediastinum. Normal hilar regions. There is evidence of a pulmonary embolism within branches of the right lower lobe pulmonary artery and the posterior medial segment of the right lower lobe. This is in the third order muscular branches. There is atherosclerotic calcification of the aortic arch. There are multi-level degenerative changes of the thoracic spine. ABDOMEN There is diffuse circumferential wall thickening of the distal esophagus with narrowing of the lumen. Endoscopic correlation recommended. Heterogeneous appearance of the posterior aspect of the right lobe of the liver with focal areas of decreased attenuation. Metastatic deposits should be ruled out. There is a 5.9 cm x 6.5 cm heterogeneous soft tissue mass in the right adrenal gland. A primary carcinoma or possible metastatic deposit should be ruled out. Tiny calculus is seen in the neck of the gallbladder lumen. Normal spleen. Normal pancreas. Normal bilateral adrenal glands. Nonobstructive 2 mm calculus in the lower pole calyx of the right kidney. Normal left kidney. Normal visualized stomach. Normal small intestine. Surgical clips are seen in the region of the cecum. Sigmoid diverticulosis. There is non-visualization of the appendix. There is scattered atherosclerotic calcification of the abdominal aorta, without a demonstrated aneurysm. Normal inferior vena cava. There are enlarged retroperitoneal lymph nodes in the upper abdomen at the level of the renal lino bilaterally. There is a left-sided inguinal hernia containing adipose tissue. Heterogeneous enlargement of the prostate with indentation of the bladder base. The prostate measures 4.4 cm x 5.1 cm. PELVIS Normal urinary bladder. There is diffuse atherosclerotic calcification of the pelvic arteries. Normal abdominal wall. There are diffuse degenerative changes of the visualized lumbar spine. CT/CT Chest, Abd, Pel w/Contrast IMPRESSION: Pulmonary embolism seen in branches of the right lower lobe pulmonary artery along the posteromedial segment of the right lower lobe. Emphysematous changes and hyperinflation with mild scarring at the lung bases. Diffuse circumferential wall thickening of the distal esophagus with narrowing of the lumen. Endoscopic correlation recommended. Heterogeneous appearance of the posterior aspect of the right lobe of the liver with focal areas of decreased attenuation. Metastatic deposit should be ruled out. Large heterogeneous mass in the right adrenal gland. Enlarged lymph nodes in the retroperitoneum in the upper abdomen at the level of the renal lino. Nonobstructive right intrarenal calculus. Small gallstone in neck of the gallbladder. Heterogeneous enlargement of the prostate with indentation of the bladder base. Small Electronically Signed: Pedro Gavin MD at 9:12 EDT ,
[2023-08-30] MEDS: 0.9 % NaCl (Sterile) Posiflush 10 mL IV (08:30)
== END | disposition home or self-care (01) ==
LOC: CT 08:10
PROVIDERS: PCP Family Medicine; Referring Provider Internal Medicine Medical Oncology; Visit Provider Internal Medicine Medical Oncology
DX: C34.12 Malignant neoplasm of upper lobe, left bronchus or lung (principal); C79.71 Secondary malignant neoplasm of right adrenal gland
CPT/HCPCS: 71260; 74177; Q9967

== ENCOUNTER 2023-09-08 11:36 | Emergency (ER) | payer MEDICARE, SELFPAY ==
[2023-09-08 11:36] VITALS: BP 143/71; PULSE 88; RESP 14; TEMP 36.8; O2SAT 97; BMI 24.3
--- NOTE | 2023-09-08 11:57 | EDS_ITS ---
HPI <MIGUEL Hermosillo - Last Filed: 09/08/23 13:50> History of Present Illness Chief Complaint: Back Narrative Narrative: Patient is a 78-year-old male with history of lymphoma that is not responding well to therapy. Patient dates he has a in his colon, liver, brain, he is getting seen by [facility]. He does see local oncology here. Patient states for the last several weeks, has been having pain to his back and neck worse with flexing his neck down to look down. Patient denies any pain looking right or left. He denies any headache. He is here for evaluation. [facility] <MIGUEL Hermosillo - Last Filed: 09/08/23 13:50> [facility] Medical History Left leg DVT Anemia Hypokalemia Pain of left calf Irregular heart rhythm Wears glasses Cancer Prostate disease History of echocardiogram Encounter for education Malignant neoplasm metastatic to brain Former tobacco use History of colonic polyps BPH (benign prostatic hyperplasia) COVID-19 EFFIE (obstructive sleep apnea) COPD (chronic obstructive pulmonary disease) with emphysema Home Medications ?Medication ?Instructions ?Recorded ?Last Taken ?Type tamsulosin 0.4 mg capsule 0.4 mg PO DAILY PROSTATE 04/02/19 07/23/23 History fluticasone propionate 50 2 spray intranasal DAILY NASAL 04/20/22 07/23/23 Rx mcg/actuation nasal CONGESTION #16 grams spray,suspension ipratropium 20 mcg-albuterol 100 1 puff inhalation Q6H PRN WHEEZING 04/24/23 07/22/23 History mcg/actuation mist for inhalation (Combivent Respimat) dexamethasone 4 mg tablet 4 mg PO .COMPLEX #36 tabs 07/17/23 Unknown Rx folic acid 1 mg tablet 1 mg PO DAILY #90 tabs 07/17/23 07/23/23 Rx lidocaine-prilocaine 2.5 %-2.5 % 1 applic topical ONCE PRN port 07/17/23 Unknown Rx topical cream access 30 days #30 grams apixaban 5 mg (74 tabs) tablets in 5 mg PO ONCE #74 tabs 08/07/23 Unknown Rx a dose pack (Eliquis DVT-PE Treat 30D Start) potassium chloride 20 mEq 20 meq PO DAILY #3 tabs 08/07/23 Unknown Rx tablet,extended release(part/cryst) apixaban 5 mg tablet 5 mg PO BID #60 tabs 08/22/23 Unknown Rx ondansetron 8 mg disintegrating 8 mg PO Q8H PRN nausea and 08/22/23 Unknown Rx tablet vomiting #30 tabs magnesium citrate 150 ml PO BID #296 mL 08/27/23 Unknown Rx sennosides 8.6 mg-docusate sodium 1 tab-cap PO BID 09/06/23 Unknown History 50 mg capsule (Senna Plus) diazepam 5 mg tablet (Valium) 5 mg PO QHS PRN muscle spasm #12 09/08/23 Unknown Rx tabs Allergy/AdvReac Type Severity Reaction Status Date / Time Environmental Allergies: Allergy sneezing Verified 09/08/23 11:37 Uncoded (hay) animal dander AdvReac Mild Other Verified 09/08/23 11:37 oak AdvReac Mild Other Verified 09/08/23 11:37 moxifloxacin HCl (From AdvReac Nausea Verified 09/08/23 11:37 Avelox) prochlorperazine (From AdvReac Other Verified 09/08/23 11:37 Compazine) prochlorperazine edisylate AdvReac Other Verified 09/08/23 11:37 (From Compazine) prochlorperazine maleate AdvReac Other Verified 09/08/23 11:37 (From Compazine) Family History Father Hypertension Kidney disease Mother Hypertension CVA (cerebral vascular accident) Alzheimer disease Surgical History History of esophagogastroduodenoscopy (EGD) History of colonoscopy History of excision of lesion History of left knee surgery History of back surgery History of appendectomy History of right hemicolectomy Social History household members: spouse housing: house Smoking Status: Former smoker pack-years: 63 Tobacco: How many years used: 35 second hand exposure: No alcohol intake: current alcohol intake frequency: holidays/special occasions only Alcohol type: beer substance use type: does not use caffeine: Yes (3/day) ROS <MIGUEL Hermosillo - Last Filed: 09/08/23 13:50> ROS ED ROS Narrative Constitutional: Negative for fever, chills, weight loss, weakness Eyes: Negative for vision loss, vision change, double vision ENT: Negative for any sore throat, ear pain, congestion Cardiovascular: Negative for any chest pain, tightness, palpitations Respiratory: Negative for any cough, sputum production, hemoptysis, dyspnea, dyspnea on exertion, orthopnea Gastrointestinal: Negative for any abdominal pain, nausea, vomiting, diarrhea, constipation, blood in stool, blood in vomit : Negative for any urinary frequency, dysuria, retention, blood in urine Muscle skeletal: Negative for any back pain. Positive for neck pain Neurological: Negative for any headache, syncope, dizziness Skin: Negative for any rashes, itching, abrasions, lacerations Psychiatric: Negative for any depression, anxiety, stress, suicidal ideation, homicidal ideation Hematologic: Negative for any excessive bruising, easy bleeding EXAM <MIGUEL Hermosillo - Last Filed: 09/08/23 13:50> Physical Exam Narrative Exam Narrative: Vital signs reviewed. HEET: Head normocephalic atraumatic, TMs clear bilaterally. Posterior pharynx is clear, moist mucous membranes. Nares clear bilaterally. Neck: Supple with no lymphadenopathy or tenderness. No signs of meningismus. Patient when sitting straight has minimal pain. No pain on palpation. Whenever the patient does flex to look down, the pain shoots to the right side of his neck to his right shoulder blade to his right lateral muscle. Patient has no pain that goes down the shoulder. I was able move the right shoulder without a ny difficulty. Patient is able to move his neck right and left, this was not pain causing. Only pain is with flexion Cardiac: Regular rate and rhythm no murmurs gallops or rubs, equal peripheral pulses bilaterally. Respiratory: Lungs clear to auscultation bilaterally. No chest tenderness. Abdomen: Soft, nontender, nondistended. No abdominal bruit or pulsatile masses. No hepatosplenomegaly Extremities: No peripheral edema, no signs of gross trauma or deformity. Active full range of motion of all extremities. Neuro: Cranial nerves II through XII intact, no focal neurological deficits. Skin: Clean dry and intact with no rash, purpura, petechiae, vesicles or pustules. Backs/flank: No CVA tenderness, no midline spinal tenderness, no deformity. Psych: Normal mood and affect. No SI, HI or acute psychosis. Const Vital Signs: 09/08/23 11:36 09/08/23 14:01 Temperature 98.3 F 98.3 F Temperature Source Temporal Pulse Rate 88 85 Respiratory Rate 14 16 Blood Pressure 143/71 H 130/75 H Blood Pressure Mean 95 93 Pulse Ox 97 98 Oxygen Delivery Method Room Air <Dr. Scott Carmona MD - Last Filed: 09/08/23 16:30> Physical Exam Const Vital Signs: 09/08/23 11:36 09/08/23 14:01 Temperature 98.3 F 98.3 F Temperature Source Temporal Pulse Rate 88 85 Respiratory Rate 14 16 Blood Pressure 143/71 H 130/75 H Blood Pressure Mean 95 93 Pulse Ox 97 98 Oxygen Delivery Method Room Air MDM <MIGUEL Hermosillo - Last Filed: 09/08/23 13:50> [facility] Lab Data Labs: Laboratory Results - last 24 hr 09/08/23 12:27 Sodium 140 Potassium 3.7 Chloride 110 H Carbon Dioxide 22.0 Anion Gap 8 BUN 35 H Creatinine 0.91 Estim Creat Clear Calc 72.40 Est GFR (MDRD) Af Amer 104 Est GFR (MDRD) Non-Af 86 BUN/Creatinine Ratio 38.6 H Glucose 92 Calcium 9.6 Radiography Diagnostic Testing: Clinical Impression(s) from Imaging Studies Soft Tissue Neck CT 09/08/23 12:02 IMPRESSION: Multiple suspicious bulky supraclavicular lymphadenopathy in the left side of the neck. Largest node measures up to 2.2 cm in short axis dimension. This conglomeration of abnormal lymph nodes are highly suspicious for metastatic disease. Lung apices show underlying emphysema without a superimposed process or mass lesion No airway narrowing or deviation Normal-appearing thyroid Degenerative changes in the cervical spine with remote right occipital craniotomy Electronically Signed: Fransisco Osborn MD at 13:38 EDT , Treatment and Re-Evaluation :: Differential diagnosis includes however is not limited to: Muscle spasm, neck strain, metastasis cervical radiculopathy Patient appears to be in no obvious respiratory distress vital signs are stable, appears nontoxic. Presenting to the emergency department with complaints of neck pain worse with flexion. Secondary to the patient's cancer diagnosis, I did look at the patient's recent scans. Patient is multiple areas of cancer such as in his colon liver, brain. Patient will receive a CT scan of the cervical spine. Patient's chemistries show creatinine 0.9, slight elevation in BUN/creatinine ratio 3.6. Patient CT scan of the soft tissue neck shows multiple suspicious bulky supraclavicular lymphadenopathy in the left side of the neck. Largest node measuring to 2.2 cm in short axis dimension. No airway narrowing or deviation. Degenerative change of the cervical spine with remote right occipital craniotomy. At this time, neuropathy this is from metastatic disease. I believe this is more muscle skeletal. Patient will be placed on Valium for nighttime, this will also help him sleep it was another one of his complaints. He is instructed to maintain hydration he will follow-up outpatient. All questions answered, patient stable for discharge. <Dr. Scott Carmona MD - Last Filed: 09/08/23 16:30> [facility] Narrative Medical decision making narrative: I have personally performed a face to face assessment of the patient and have reviewed the CHELO Note. I performed a substantive portion of the visit including all aspects of the following. 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 Patient had a PET scanOn May 30 that revealed cluster of increased radiopharmaceutical concentration left anterior neck, periclavicular region, left posterior cervical triangle. There was facilitate uptake noted in the right and left Zachary hilar region. In the abdominal portion there was enhanced FDG concentration in the right upper abdomen associated with markedly enlarged right adrenal gland. There was facilitate uptake noted in the mid abdomen retroperitoneal area in the right C. Mesenteric lymph node basin.. This revealed/indicated malignant viable neoplasm in multiple areas. He presents because of difficulty flexing to the point now he cannot determine his weight looking at the scale. He is able to rotate to the right and left. He is able to extend at the neck. He complains of pain lateral/anterior right neck, right shoulder region over the trapezius deltoid upper latissimus region. He has undergone 2 cycles of chemotherapy with no improvement per most recent CAT scan. Exam is remarkable for minimal tenderness over the right trapezius area. Axillary, median, radial and ulnar function intact. Bicep, brachialis tricep reflex are 1+. There is no bony tenderness noted over the clavicle, AC joint or proximal humerus. Medical Decision Making in light of the fact that the chemo has not worked and now he is having pain on the right side CT of the soft tissue neck with contrast was obtained to assess for metastasis possible bony destruction. Will obtain BMP to assess renal function prior to contrast load. Basic metabolic panel is remarkable for acute azotemia with a BUN to creatinine ratio of approximately 39-1. Patient will require hydration. Other additions or changes: [None] Lab Data Labs: Laboratory Results - last 24 hr 09/08/23 12:27 Sodium 140 Potassium 3.7 Chloride 110 H Carbon Dioxide 22.0 Anion Gap 8 BUN 35 H Creatinine 0.91 Estim Creat Clear Calc 72.40 Est GFR (MDRD) Af Amer 104 Est GFR (MDRD) Non-Af 86 BUN/Creatinine Ratio 38.6 H Glucose 92 Calcium 9.6 Radiography Diagnostic Testing: Clinical Impression(s) from Imaging Studies Soft Tissue Neck CT 09/08/23 12:02 IMPRESSION: Multiple suspicious bulky supraclavicular lymphadenopathy in the left side of the neck. Largest node measures up to 2.2 cm in short axis dimension. This conglomeration of abnormal lymph nodes are highly suspicious for metastatic disease. 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, NSCLC metastatic to brain, Left leg DVT, Acute prerenal azotemia Instructions: ED Neck Sprain or Strain Prescriptions: New diazepam [Valium] 5 mg tablet 5 mg PO QHS PRN (Reason: muscle spasm) Qty: 12 0RF No Action tamsulosin 0.4 mg capsule 0.4 mg PO DAILY lidocaine-prilocaine 2.5-2.5 % cream 1 applic topical ONCE PRN (Reason: port access) 30 Days Qty: 30 2RF folic acid 1 mg tablet 1 mg PO DAILY Qty: 90 1RF dexamethasone 4 mg tablet 4 mg PO .COMPLEX Qty: 36 0RF Rx Instructions: 4 mg orally twice daily ONLY the day before, the day of, and the day after chemotherapy Eliquis DVT-PE Treat 30D Start 5 mg (74 tabs) tablets,dose pack 5 mg PO ONCE Qty: 74 0RF potassium chloride 20 mEq tablet,ER particles/crystals 20 meq PO DAILY Qty: 3 0RF Senna Plus 8.6-50 mg capsule 1 tab-cap PO BID Combivent Respimat 20-100 mcg/actuation mist 1 puff INHALATION Q6H PRN (Reason: WHEEZING) magnesium citrate Solution 150 ml PO BID Qty: 296 0RF fluticasone propionate 50 mcg/actuation spray,suspension 2 spray INTRANASAL DAILY Qty: 16 5RF apixaban 5 mg tablet 5 mg PO BID Qty: 60 2RF ondansetron 8 mg tablet,disintegrating 8 mg PO Q8H PRN (Reason: nausea and vomiting) Qty: 30 2RF Primary Care Provider: Jamshid Kuhn Referrals: Jamshid Kuhn DO [Primary Care Provider] - Activity Restrictions/Additional Instructions: Continue to perform gentle stretching. Print Language: German Disposition Disposition: Home, Self Care Discharge Date/Time: 09/08/23 14:02
--- NOTE | 2023-09-08 12:02 | CT_ITS ---
STUDY: CT SOFT TISSUE NECK WITH CONTRAST REASON FOR EXAM: Male, 78 years old. Known lung cancer, restaging RADIATION DOSAGE (If Supplied By Facility): CTDIvol = ( 17.84 ) mGy, DLP = ( 597.23 ) mGycm TECHNIQUE: The patient was scanned in a multi-detector CT scanner. High resolution transaxial imaging was performed following intravenous administration of IV 100mL Isovue-370. Sagittal and coronal images were reconstructed. Individualized dose optimization techniques were used for this CT. COMPARISON: None. FINDINGS: Normal bilateral parotid glands. Normal bilateral range scientist spaces. Normal bilateral parapharyngeal spaces. Normal bilateral carotid spaces. Normal bilateral sublingual and submandibular glands and spaces. Normal visualized nasopharynx. Normal retropharyngeal space. Normal perivertebral space. Normal visualized bilateral faucial tonsils. The visualized tongue, tongue base and oropharynx are normal. There are multiple suspicious enlarged supraclavicular lymph nodes in the left neck measuring up to 2.2 cm in short axis to, and likely representing metastasis. No suspicious enlarged lymph nodes noted in the right neck. No suspicious jugular chain lymphadenopathy. Normal epiglottis, bilateral vallecula and hypopharynx. The pre-epiglottic and paraglottic adipose spaces are normal. Normal visualized bilateral piriform sinuses, aryepiglottic folds, vocal cords, and arytenoid-cricoid articulations. Normal subglottic trachea. Normal bilateral lobes of the thyroid gland. Lung apices show underlying emphysema without a superimposed pulmonary process. Normal visualized paranasal sinuses. There is multilevel degenerative changes of the cervical spine. Evidence of previous right occipital craniotomy CT/Soft Tissue Neck WITH Contrast IMPRESSION: Multiple suspicious bulky supraclavicular lymphadenopathy in the left side of the neck. Largest node measures up to 2.2 cm in short axis dimension. This conglomeration of abnormal lymph nodes are highly suspicious for metastatic disease. Lung apices show underlying emphysema without a superimposed process or mass lesion No airway narrowing or deviation Normal-appearing thyroid Degenerative changes in the cervical spine with remote right occipital craniotomy Electronically Signed: Fransisco Osborn MD at 13:38 EDT ,
[2023-09-08 12:50] LABS: Anion Gap 8 (5-15); BUN 35 mg/dL (7-18); BUN/Creat Ratio 38.6 RATIO (10-20); Calcium,Total 9.6 mg/dL (8.5-10.1); Chloride 110 mmol/L (98-107); Creatinine, Serum 0.91 mg/dL (0.70-1.30); EST Glomerular Filtration Rate 86 mL/min (>60); Est Glom Filt Rate - Afr Amer 104 mL/min (>60); Glucose 92 mg/dL (74-106); Potassium 3.7 mmol/L (3.5-5.1); Sodium Level 140 mmol/L (136-145)
[2023-09-08] MEDS: 0.9% Saline Lock 10 ML Syringe IV (13:58)
[2023-09-08 14:01] VITALS: BP 130/75; PULSE 85; RESP 16; TEMP 36.8; O2SAT 98
== END 2023-09-08 14:02 | disposition home or self-care (01) ==
PROVIDERS: Emergency Provider Emergency Medicine; PCP Family Medicine; Visit Provider Emergency Medicine
DX: S16.1XXA Strain of muscle, fascia and tendon at neck level, initial encounter (principal); J44.9 Chronic obstructive pulmonary disease, unspecified; I82.402 Acute embolism and thrombosis of unspecified deep veins of left lower extremity; G47.33 Obstructive sleep apnea (adult) (pediatric); R79.89 Other specified abnormal findings of blood chemistry; Z86.16 Personal history of COVID-19; Z87.891 Personal history of nicotine dependence; X58.XXXA Exposure to other specified factors, initial encounter
CPT/HCPCS: 36591; 70491; 80048; 99284; Q9967; A4216

== ENCOUNTER → 2023-09-26 | Outpatient (CLI) | payer MEDICARE, SELFPAY ==
--- NOTE | 2023-09-26 12:42 | MRI_ITS ---
HISTORY: RIGHT neck and scapular pain, history of cancer. TECHNIQUE: Multiplanar and multisequence MR images of the thoracic spine were obtained before and after the intravenous administration of 15 cc Clariscan. 226 images. COMPARISON: CT 08/30/2023 FINDINGS: VERTEBRAE: Vertebral body heights maintained. Mild degenerative endplate changes. No other significant bone marrow signal abnormality. No suspicious enhancing lesion with artifact from incomplete fat saturation at the thoracolumbar junction. ALIGNMENT: No anterior or posterior subluxation. SPINAL CANAL: Thoracic cord unremarkable in signal and morphology without enhancing lesion. Normal morphology and position of the conus medullaris at the lower T12 level. No epidural collection or enhancing intradural extramedullary mass. INTERVERTEBRAL DISCS: No significant posterior disc protrusion, central canal stenosis, or foraminal narrowing. SOFT TISSUES: Multiple liver masses, heterogeneous large right adrenal mass, and retroperitoneal lymphadenopathy again seen. No paraspinal fluid collection. MRI/Spine Thoracic W/WO Contrast IMPRESSION: No evidence for enhancing mass or spinal canal stenosis in the thoracic spine. Redemonstration of right adrenal mass, liver masses, and retroperitoneal lymphadenopathy concerning for metastases. Electronically Signed: Amirah Butler MD at 11:26 EDT ,
--- NOTE | 2023-09-26 12:42 | MRI_ITS ---
HISTORY: RIGHT sided neck and scapular pain, history of cancer. TECHNIQUE: Multiplanar and multisequence MR images of the cervical spine were obtained before and after the intravenous administration of 15 mL Clariscan. 312 images. COMPARISON: CT 09/08/2023. FINDINGS: VERTEBRAE: Vertebral body heights maintained. Mild degenerative endplate changes at multiple levels. No other significant bone marrow signal abnormality or abnormal enhancement. VERTEBRAL ALIGNMENT: No anterior or posterior subluxation. SPINAL CANAL: Cervical cord signal and morphology within normal limits without enhancing lesion. No epidural collection or enhancing intradural extramedullary mass. SOFT TISSUES: No prevertebral fluid collection. Multiple enlarged left posterior triangle and subclavicular lymph nodes measuring up to 2.4 cm. Increased T2 signal in the eder, which may be related to chronic small vessel ischemic gliosis. INTERVERTEBRAL DISCS: C2-3: No significant posterior disc protrusion or central canal stenosis. Uncovertebral and facet arthropathy with mild left foraminal narrowing. C3-4: Posterior disc bulge osteophyte complex with uncovertebral and facet arthropathy resulting in abutment of the right traversing nerve root, ventral cord abutment, and moderate-severe central canal stenosis with bilateral foraminal narrowing. C4-5: Posterior disc bulge osteophyte complex with uncovertebral and facet arthropathy resulting in mild-moderate central canal stenosis and moderate bilateral foraminal narrowing. C5-6, C6-7: Posterior disc bulge osteophyte complexes with uncovertebral and facet arthropathy resulting in mild central canal stenosis and moderate-severe bilateral foraminal narrowing. C7-T1: Mild posterior disc bulge osteophyte complex resulting in minimal narrowing of the thecal sac and mild bilateral foraminal narrowing . MRI/Spine Cervical W/WO Contrast IMPRESSION: Multilevel degenerative disc disease of the cervical spine resulting in moderate-severe spinal canal stenosis, bilateral foraminal narrowing, right nerve root impingement, and mild cord impingement at C3-4. Mild-moderate spinal canal stenosis and moderate bilateral foraminal narrowing of C4-5. Mild spinal canal stenosis with moderate-severe bilateral foraminal narrowing of C5-6 and C6-7. No evidence for metastatic disease in the cervical spine. Multiple enlarged left supraclavicular and posterior triangle cervical lymph nodes, concerning for metastases. Electronically Signed: Amirah N. Luke, MD at 11:11 EDT ,
== END | disposition home or self-care (01) ==
LOC: MRI 12:34
PROVIDERS: PCP Family Medicine; Referring Provider Nurse Practitioner Family; Visit Provider Nurse Practitioner Family
DX: M54.2 Cervicalgia (principal); M89.8X1 Other specified disorders of bone, shoulder
CPT/HCPCS: 72156; 72157; A9575

== ENCOUNTER 2023-10-12 13:02 | Inpatient (IN) | payer MEDICARE, SELFPAY ==
[2023-10-12] VITALS (7 sets, daily range): BP systolic 101–132; BP diastolic 64–88; PULSE 56–84; RESP 15–23; TEMP 35.9–36.6; O2SAT 93–98; BMI 22.3; BMI 20.9
--- NOTE | 2023-10-12 13:25 | CT_ITS ---
INDICATION: neck pain EXAMINATION: CT CERVICAL SPINE - CT Spine Cervical W/O Contrast Injection TECHNIQUE: Helically acquired images were obtained of the cervical spine. 2D reformatted images were reviewed. The protocol utilizes one or more of the following dose reduction techniques: automated exposure control, adjustment of mA and/or kV according to patient size,and/or use of iterative reconstruction technique. IV Contrast dosage and agent: None. RADIATION DOSAGE (If Supplied By Facility): CTDIvol = ( 26.58 ) mGy, DLP = ( 592.50 ) mGycm COMPARISON: Soft tissue neck dated September 08, 2023 and MRI dated September 26, 2023 FINDINGS: There is a separate dedicated CT report of the head. VERTEBRAE: No fracture or traumatic subluxation. There is multilevel endplate spondylosis and facet hypertrophy. No discrete lytic or blastic abnormality. Normal alignment. Normal craniocervical junction and cervicothoracic junction. DISCS and SPINAL CANAL: There is multilevel degenerative disc disease. No critical stenosis. NECK SOFT TISSUES: No prevertebral soft tissue swelling. There are pathologically enlarged left sided supraclavicular lymph nodes that have decreased in size since the prior CT of the neck. LUNG APICES: There are emphysematous changes. CT/Spine Cervical without Contras IMPRESSION: Multilevel degenerative changes. Interval decrease in size of pathologically enlarged left supraclavicular lymph node. Emphysema. Electronically Signed: Shabana Hunt MD at 14:24 EDT ,
--- NOTE | 2023-10-12 13:25 | CT_ITS ---
INDICATION: fall EXAMINATION: CT BRAIN - CT Head or Brain W/O Contrast Injection TECHNIQUE: Multiple axial images were obtained of the head without intravenous contrast. The protocol utilizes one or more of the following dose reduction techniques: automated exposure control, adjustment of mA and/or kV according to patient size,and/or use of iterative reconstruction technique. IV Contrast dosage and agent: None. RADIATION DOSAGE (If Supplied By Facility): CTDIvol = ( 44.99 ) mGy, DLP = ( 880.47 ) mGycm COMPARISON: July 07, 2023 and July 29, 2023 FINDINGS: BRAIN PARENCHYMA: No intra- or extra-axial hemorrhage. No evidence of acute infarct. No intracranial mass or mass effect. There is preservation of the arnold/white matter interface. There is a stable focus of encephalomalacia within the right cerebellar. CSF SPACES: Appropriate for age. No hydrocephalus. Basal cisterns are patent. CALVARIUM, SKULL BASE, PARANASAL SINUSES AND MASTOID AIR CELLS: Clear. There are stable postsurgical changes of the right occipital calvarium. ORBITS: Both globes, extraocular muscles, optic nerves and retrobulbar fat appear unremarkable. ASPECTS Score for Acute Strokes: 10 CT/Brain/Head without Contrast IMPRESSION: No acute intracranial process. Electronically Signed: Shabana Hunt MD at 14:17 EDT ,
--- NOTE | 2023-10-12 13:25 | CT_ITS ---
EXAM: CT MAXILLOFACIAL WITHOUT INTRAVENOUS CONTRAST CLINICAL INDICATION: Mouth injury. Multiple falls. 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 TECHNIQUE: Helically acquired images were obtained of the face without intravenous contrast. This CT exam was performed using one or more of the following dose reduction techniques: automated exposure control, adjustment of the mA and/or kV according to patient size, and/or use of iterative reconstruction technique. RADIATION DOSE: CTDIvol = 29.38 mGy, DLP = 613.57 mGy-cm COMPARISON: CT neck with contrast 09/08/2023. No prior CT maxillofacial for comparison. FINDINGS: BONES/JOINTS: Acute fracture in the anterior wall of the alveolar portion of the left upper canine tooth causing loosening of this tooth. No discrete lytic or blastic abnormalities. No other suspicious fractures. SOFT TISSUES: Unremarkable. No focal subcutaneous swelling. No discrete fluid collections. ORBITS: Unremarkable. Both globes are unremarkable. Extraocular muscles are normal. Retrobulbar fat appears unremarkable. SINUSES: Unremarkable as visualized. Clear. MASTOID AIR CELLS: Unremarkable as visualized. Clear. DENTAL: Prominent periapical cyst around the root canal dental implant in the left upper second premolar tooth. The left upper first premolar tooth abuts the anterior wall of the prominent left upper second premolar periapical cyst. CT/Sinus/Facial Bone IMPRESSION: 1. Acute fracture in the anterior alveolar wall of the left upper canine tooth causing loosening of this tooth. 2. No other fractures. 3. Prominent periapical cyst around the left upper second premolar tooth. The left upper first premolar tooth abuts the anterior wall of the prominent left upper second premolar periapical cyst. Electronically Signed: Jung Nieto MD at 15:32 EDT ,
--- NOTE | 2023-10-12 13:28 | EX.ED.DYSGE1 ---
HPI <MIGUEL Hermosillo - Last Filed: 10/12/23 18:12> History of Present Illness Chief Complaint: Fall Narrative Narrative: Patient is a 78-year-old male with history of cancer to his neck, adrenal gland, lymph nodes, left lung who is currently receiving palliative cancer treatment every 3 weeks. Last cancer treatment was 1 week ago last week. Patient sees Dr. Kiser here. Patient over the last 1.5 weeks has been extremely weak. Per the , the patient is unable to get out of bed on his own. The cannot take care of the patient at home. She is hoping that the patient can be admitted to the hospital. Patient did have a face forward fall, patient did fracture the left front tooth, patient has lacerations to the left upper lip. Patient has pain to his neck, no LOC noted. Patient is currently laying on his left side. PFSH <MIGUEL Hermosillo - Last Filed: 10/12/23 18:12> [facility] Medical History Spinal stenosis in cervical region Prerenal azotemia Pain of right scapula Neck pain on right side Left leg DVT Anemia Hypokalemia Pain of left calf Irregular heart rhythm Wears glasses Cancer Prostate disease History of echocardiogram Encounter for education Malignant neoplasm metastatic to brain Former tobacco use History of colonic polyps BPH (benign prostatic hyperplasia) COVID-19 EFFIE (obstructive sleep apnea) COPD (chronic obstructive pulmonary disease) with emphysema Home Medications ?Medication ?Instructions ?Recorded ?Last Taken ?Type tamsulosin 0.4 mg capsule 0.4 mg PO DAILY PROSTATE 04/02/19 10/12/23 History fluticasone propionate 50 2 spray intranasal DAILY NASAL 04/20/22 10/12/23 Rx mcg/actuation nasal CONGESTION #16 grams spray,suspension ipratropium 20 mcg-albuterol 100 1 puff inhalation Q6H PRN WHEEZING 04/24/23 10/12/23 History mcg/actuation mist for inhalation (Combivent Respimat) folic acid 1 mg tablet 1 mg PO DAILY #90 tabs 07/17/23 10/12/23 Rx lidocaine-prilocaine 2.5 %-2.5 % 1 applic topical ONCE PRN port 07/17/23 10/12/23 Rx topical cream access 30 days #30 grams potassium chloride 20 mEq 20 meq PO DAILY #3 tabs 08/07/23 10/12/23 Rx tablet,extended release(part/cryst) apixaban 5 mg tablet 5 mg PO BID #60 tabs 08/22/23 10/12/23 Rx ondansetron 8 mg disintegrating 8 mg PO Q8H PRN nausea and 08/22/23 10/12/23 Rx tablet vomiting #30 tabs magnesium citrate 150 ml PO BID #296 mL 08/27/23 10/12/23 Rx sennosides 8.6 mg-docusate sodium 1 tab-cap PO BID PRN constipation 09/06/23 Unknown History 50 mg capsule (Senna Plus) diazepam 5 mg tablet (Valium) 5 mg PO QHS PRN muscle spasm #12 09/08/23 10/11/23 Rx tabs dexamethasone 4 mg tablet 4 mg PO DAILY #36 tabs 09/14/23 Unknown Rx tramadol 50 mg tablet 25 mg PO QHS NECK PAIN 10/12/23 10/11/23 History Allergy/AdvReac Type Severity Reaction Status Date / Time Environmental Allergies: Allergy sneezing Verified 10/12/23 13:03 Uncoded (hay) animal dander AdvReac Mild Other Verified 10/12/23 13:03 oak AdvReac Mild Other Verified 10/12/23 13:03 moxifloxacin HCl (From AdvReac Nausea Verified 10/12/23 13:03 Avelox) prochlorperazine (From AdvReac Other Verified 10/12/23 13:03 Compazine) prochlorperazine edisylate AdvReac Other Verified 10/12/23 13:03 (From Compazine) prochlorperazine maleate AdvReac Other Verified 10/12/23 13:03 (From Compazine) Family History Father Hypertension Kidney disease Mother Hypertension CVA (cerebral vascular accident) Alzheimer disease Surgical History History of esophagogastroduodenoscopy (EGD) History of colonoscopy History of excision of lesion History of left knee surgery History of back surgery History of appendectomy History of right hemicolectomy Social History household members: spouse housing: house Smoking Status: Former smoker pack-years: 63 Tobacco: How many years used: 35 second hand exposure: No alcohol intake: current alcohol intake frequency: holidays/special occasions only Alcohol type: beer substance use type: does not use caffeine: Yes (3/day) ROS <MIGUEL Hermosillo - Last Filed: 10/12/23 18:12> ROS ED ROS Narrative Constitutional: Negative for fever, chills, weight loss, weakness Eyes: Negative for vision loss, vision change, double vision ENT: Negative for any sore throat, ear pain, congestion. Positive for mouth pain, tooth fracture Cardiovascular: Negative for any chest pain, tightness, palpitations Respiratory: Negative for any cough, sputum production, hemoptysis, dyspnea, dyspnea on exertion, orthopnea Gastrointestinal: Negative for any abdominal pain, nausea, vomiting, diarrhea, constipation, blood in stool, blood in vomit : Negative for any urinary frequency, dysuria, retention, blood in urine Muscle skeletal: Positive for neck pain, back pain, this is chronic. Neurological: Negative for any headache, syncope, dizziness Skin: Negative for any rashes, itching. Positive for abrasions to the left wrist, upper mouth Psychiatric: Negative for any depression, anxiety, stress, suicidal ideation, homicidal ideation Hematologic: Negative for any excessive bruising, easy bleeding EXAM <MIGUEL Hermosillo - Last Filed: 10/12/23 18:12> Physical Exam Narrative Exam Narrative: Vital signs reviewed. Patient is currently laying on his left side, patient's legs are bunched up, patient states he is laying this way secondary to his chronic neck pain. HEET: Head normocephalic atraumatic, TMs clear bilaterally. Posterior pharynx is clear, moist mucous membranes. Nares clear bilaterally. Patient does have a 0.5 cm laceration to the left upper lip by the vermilion border this will need sutured. Patient does have a missing left front tooth. Neck: Supple with no lymphadenopathy or tenderness. No signs of meningismus. Cardiac: Regular rate and rhythm no murmurs gallops or rubs, equal peripheral pulses bilaterally. Respiratory: Lungs clear to auscultation bilaterally. No chest tenderness. Abdomen: Soft, nontender, nondistended. No abdominal bruit or pulsatile masses. No hepatosplenomegaly Extremities: No peripheral edema, no signs of gross trauma or deformity. Active full range of motion of all extremities. Neuro: Cranial nerves II through XII intact, no focal neurological deficits. Skin: Clean dry and intact with no rash, purpura, petechiae, vesicles or pustules. Backs/flank: No CVA tenderness, no midline spinal tenderness, no deformity. Psych: Normal mood and affect. No SI, HI or acute psychosis. Const Vital Signs: 10/12/23 15:03 Pulse Rate 78 Respiratory Rate 16 Blood Pressure 132/76 H Blood Pressure Mean 94 Pulse Ox 98 Oxygen Delivery Method Room Air <Dr. Scott Carmona MD - Last Filed: 10/13/23 14:30> Physical Exam Const Vital Signs: 10/12/23 15:03 Pulse Rate 78 Respiratory Rate 16 Blood Pressure 132/76 H Blood Pressure Mean 94 Pulse Ox 98 Oxygen Delivery Method Room Air MDM <MIGUEL Hermosillo - Last Filed: 10/12/23 18:12> [facility] Lab Data Labs: Laboratory Results - last 24 hr 10/12/23 10/12/23 13:52 15:56 Differential Comment SCANNED Toxic Granulation 1+ Toxic Vacuolation 1+ Dohle Bodies 1+ Anisocytosis 1+ Ovalocytes 1+ Urine Color Yellow Urine Clarity Clear Urine pH 5.0 Ur Specific [place] 1.025 Urine Protein Negative Urine Glucose (UA) Normal Urine Ketones Negative Urine Occult Blood Negative Urine Nitrite Negative Urine Bilirubin Negative Urine Urobilinogen Normal Ur Leukocyte Esterase Negative Urine RBC 0 SEEN Urine WBC 0 SEEN Ur Squamous Epith Cells 0 SEEN Urine Bacteria 0 SEEN Urine Mucus 0 SEEN Radiography Diagnostic Testing: Clinical Impression(s) from Imaging Studies Brain CT 10/12/23 13:25 IMPRESSION: No acute intracranial process. Electronically Signed: Shabana Hunt MD at 14:17 EDT , Cervical Spine CT 10/12/23 13:25 IMPRESSION: Multilevel degenerative changes. Interval decrease in size of pathologically enlarged left supraclavicular lymph node. Emphysema. Electronically Signed: Shabana Hunt MD at 14:24 EDT , Facial/Sinus 10/12/23 13:25 IMPRESSION: 1. Acute fracture in the anterior alveolar wall of the left upper canine tooth causing loosening of this tooth. 2. No other fractures. 3. Prominent periapical cyst around the left upper second premolar tooth. The left upper first premolar tooth abuts the anterior wall of the prominent left upper second premolar periapical cyst. Electronically Signed: Jung Nieto MD at 15:32 EDT , Treatment and Re-Evaluation :: Differential diagnosis includes however is not limited to: Worsening malignancy, intracranial hemorrhage, concussion, electrolyte abnormality, UTI, sequelae of chemotherapy Patient is in no obvious distress, patient's vital signs are stable. Patient looks nontoxic, presenting to the emergency department after sustaining a mechanical fall, patient does have mouth injury, left front tooth injury. Patient received CT scan of the brain cervical spine and maxillofacial bones. Patient received IV fluids, urinalysis. Patient will likely be admitted to the hospital secondary to weakness. All radiologic examinations were read, reviewed by the emergency department attending. From these reads, a plan of care will be put in place. Patient CT scan of the brain showed no acute intracranial process. Cervical spine shows multi level degenerative changes, interval decrease in size of pathologically enlarged left supraclavicular lymph node. Emphysema. CT scan of the facial sinus bones shows acute fracture in the anterior alveolar wall of the left upper canine tooth causing loosening of this tooth. No other fractures. Patient's laboratory values show slight anemia with a hemoglobin of 11.3, this is baseline. Chemistries show acute hyponatremia sodium 129, BUN is 39, BUN/creatinine ratio is 49.3. I was able to use let, sterile gloves, sterile drapes were used. I was able to use a 5 oh rapid dissolving stitch around the vermilion border of the left upper lip. Patient tolerated well. On reevaluation the patient was still laying to his left side. Spoke with the patient, the patient's family, they do agree the patient needs admitted to the hospital. I am currently waiting for the hospitalist. <Dr. Scott Carmona MD - Last Filed: 10/13/23 14:30> [facility] Narrative Medical decision making narrative: I have personally performed a face to face assessment of the patient and have reviewed the CHELO Note. I performed a substantive portion of the visit including all aspects of the following. My sanchez findings include: History is poorly differentiated adenocarcinoma with metastasis who is under the care of Dr. Jiang. He received chemo 1 week ago. He presents because of multiple falls, generalized weakness, poor p.o. intake. His fall today resulted in facial trauma, dental trauma and head trauma. He is on Eliquis for pulmonary embolus. He is not a good informant. History was supplemented by . Patient has a power of corporate attorney and living well. DNR [employer] arrest document was signed as well as MOLST form. Exam is no remarkable for head trauma, facial trauma and dental trauma. Tooth #9 has an Hirsch 3 fracture. There is a lip laceration that involves the vermilion border on the left upper lip. There is no clinical signs of basilar skull fracture. He does have neck pain and cannot say it is worsening his chronic neck pain. Trachea is midline. He is awake. Cranials 2 through 12 are intact. Motor or sensory intact. There is no clonus or Babinski sign noted. There is no dysmetria. Medical Decision Making with evidence of facial and head trauma on anticoagulant will obtain CT of the face and head. He meets criteria per [place] CT head rule. Because of his history of cancer failure to thrive with poor appetite will obtain appropriate blood work to assess H&H, white count, renal function, electrolytes. The patient laceration/lip laceration will be sutured by the nurse practitioner. Other additions or changes: [None] Lab Data Attestation: I reviewed the patient's lab results. Lab results narrative: Worsening edema. Indices are essentially normal. Platelet count is low at 138. Patient does have evidence of toxic granulations noted. This raises concern for infectious process. BUN and is elevated at 39 with creatinine 0.79 BUN/creatinine ratio proximally 51 consistent with acute renal insufficiency and the fact that he has been eating poorly. Labs: Laboratory Results - last 24 hr 10/12/23 10/12/23 13:52 15:56 Differential Comment SCANNED Toxic Granulation 1+ Toxic Vacuolation 1+ Dohle Bodies 1+ Anisocytosis 1+ Ovalocytes 1+ Urine Color Yellow Urine Clarity Clear Urine pH 5.0 Ur Specific [place] 1.025 Urine Protein Negative Urine Glucose (UA) Normal Urine Ketones Negative Urine Occult Blood Negative Urine Nitrite Negative Urine Bilirubin Negative Urine Urobilinogen Normal Ur Leukocyte Esterase Negative Urine RBC 0 SEEN Urine WBC 0 SEEN Ur Squamous Epith Cells 0 SEEN Urine Bacteria 0 SEEN Urine Mucus 0 SEEN Radiography Diagnostic Testing: Clinical Impression(s) from Imaging Studies Brain CT 10/12/23 13:25 IMPRESSION: No acute intracranial process. Electronically Signed: Shabana Hunt MD at 14:17 EDT , Cervical Spine CT 10/12/23 13:25 IMPRESSION: Multilevel degenerative changes. Interval decrease in size of pathologically enlarged left supraclavicular lymph node. Emphysema. Electronically Signed: Shabana Hunt MD at 14:24 EDT , Facial/Sinus 10/12/23 13:25 IMPRESSION: 1. Acute fracture in the anterior alveolar wall of the left upper canine tooth causing loosening of this tooth. 2. No other fractures. 3. Prominent periapical cyst around the left upper second premolar tooth. The left upper first premolar tooth abuts the anterior wall of the prominent left upper second premolar periapical cyst. 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
[2023-10-12] MEDS: 0.9% Normal Saline (1000mL) 1,000 ML 999 ML IV (13:51)
[2023-10-12 14:07] LABS: Absolute Lymphocyte Count 0.45 X10^3/uL (0.83-4.51); Absolute Neutrophil Count 3.8 X10^3/uL (2.0-7.7); Basophil# 0.08 X10^3/uL; Basophil% 1.6 % (0-1); Eosinophil# 0.01 X10^3/uL; Eosinophils% 0.2 % (0-5); Hematocrit 34.8 % (40-54); Hemoglobin 11.3 g/dL (13.0-16.5); Lymphocyte # 0.45 X10^3/ul (0.83-4.51); Lymphocyte % 8.9 % (19-41); Mean Corp Hgb Conc 32.5 g/dL (32-36); Mean Corpuscular Hgb 31.6 pg (27.0-32.0); Mean Corpuscular Volume 97.2 fL (80-94); Mean Platelet Vol. 9.9 fl (6.2-12.0); Monocyte# 0.59 X10^3/uL; Monocyte% 11.7 % (0-10); NRBC Flagged by Analyzer 0 % (0-5); Neutrophil # 3.82 X10^3/uL (2.7-7.7); Neutrophil % 75.8 % (47-70); POSITIVE DIFFERENTIAL YES; POSITIVE MORPHOLOGY YES; Platelet Count 138 K/mm3 (150-450); RBC Distribution Width CV 17.6 % (11.6-14.6); RBC Distribution Width SD 63.1 fl (35.1-43.9); Red Blood Count 3.58 M/mm3 (4.6-6.2)
[2023-10-12 14:14] LABS: Differential Indicated SCAN CRITERIA MET
[2023-10-12 14:22] LABS: ALB/GLOB Ratio 1.1 RATIO (0.9-2.4); AST(SGOT) 22 U/L (15-37); Alanine Aminotransfer ALT/SGPT 45 U/L (16-61); Albumin, Serum 3.5 g/dL (3.2-5.0); Alkaline Phosphatase 129 U/L (45-117); Anion Gap 4 (5-15); BUN 39 mg/dL (7-18); BUN/Creat Ratio 49.3 RATIO (10-20); Calcium,Total 9.6 mg/dL (8.5-10.1); Chloride 96 mmol/L (98-107); Creatinine, Serum 0.79 mg/dL (0.70-1.30); EST Glomerular Filtration Rate 101 mL/min (>60); Est Glom Filt Rate - Afr Amer 122 mL/min (>60); Estimated Creatinine Clearance 79.38 ml/min; Globulin 3.2 g/dL (2.2-4.2); Glucose 96 mg/dL (74-106); Protein, Total 6.7 g/dL (6.4-8.2); Sodium Level 129 mmol/L (136-145)
[2023-10-12] MEDS: Lidocaine/Epi/Tetracaine 50 ML 1 APPLIC TOPICAL (14:24)
[2023-10-12 14:56] LABS: Differential Comment SCANNED; Toxic Granulation 1+
[2023-10-12 14:57] LABS: Dohle Bodies 1+
[2023-10-12 14:58] LABS: Anisocytosis 1+; Ovalocyte 1+; Vacuolated Cells 1+
[2023-10-12 16:02] LABS: Bacteria 0 SEEN /hpf (None Seen); Mucous, Urine 0 SEEN /hpf (<or=2+); Red Blood Cells-Urine 0 SEEN /hpf (0-5); Squamous Epithelial Cells - UA 0 SEEN /hpf (0-5); White Blood Cells 0 SEEN /hpf (0-5)
[2023-10-12 16:04] LABS: Color, Urine Yellow (Yellow); Glucose, Dipstick Normal (Normal); Ketone-Dipstick Negative (Negative); Leukocyte Esterase-Dipstick Negative /ul (Negative); Nitrite-Dipstick Negative (Negative); Occult Blood-Urine Negative /ul (Negative); Protein-Dipstick Negative (Negative); Specific Gravity, Urine 1.025 (1.002-1.030); Urine Bilirubin Dipstick Negative (Negative); Urine Clarity Clear (Clear); Urine Urobilinogen Normal (Normal)
--- NOTE | 2023-10-12 16:20 | PCM.HP.STD ---
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 Patient and family attributes patient fall to weakness. Of note patient has been so weak that he is unable to get up from bed. He is unable to move even for short distances secondary to weakness. Patient's actually had a plan calling the [facility] for at home therapists to work with patient. Aside from this fall, 3 days before presentation patient had 2 falls on the same day. Associated with his symptoms as anorexia. Of note patient has no appetite to eat. With his current fall he fell face forward and had an escalation of his upper lip to the left side and also broke an incisor. Patient and family is hoping to get patient therapy inpatient and with eventual rehabilitation at the shelter. [facility] Medical History Spinal stenosis in cervical region Prerenal azotemia Pain of right scapula Neck pain on right side Left leg DVT Anemia Hypokalemia Pain of left calf Irregular heart rhythm Wears glasses Cancer Prostate disease History of echocardiogram Encounter for education Malignant neoplasm metastatic to brain Former tobacco use History of colonic polyps BPH (benign prostatic hyperplasia) COVID-19 EFFIE (obstructive sleep apnea) COPD (chronic obstructive pulmonary disease) with emphysema Home Medications ?Medication ?Instructions ?Recorded ?Last Taken ?Type tamsulosin 0.4 mg capsule 0.4 mg PO DAILY PROSTATE 04/02/19 10/12/23 History fluticasone propionate 50 2 spray intranasal DAILY NASAL 04/20/22 10/12/23 Rx mcg/actuation nasal CONGESTION #16 grams spray,suspension ipratropium 20 mcg-albuterol 100 1 puff inhalation Q6H PRN WHEEZING 04/24/23 10/12/23 History mcg/actuation mist for inhalation (Combivent Respimat) folic acid 1 mg tablet 1 mg PO DAILY #90 tabs 07/17/23 10/12/23 Rx lidocaine-prilocaine 2.5 %-2.5 % 1 applic topical ONCE PRN port 07/17/23 10/12/23 Rx topical cream access 30 days #30 grams potassium chloride 20 mEq 20 meq PO DAILY #3 tabs 08/07/23 10/12/23 Rx tablet,extended release(part/cryst) apixaban 5 mg tablet 5 mg PO BID #60 tabs 08/22/23 10/12/23 Rx ondansetron 8 mg disintegrating 8 mg PO Q8H PRN nausea and 08/22/23 10/12/23 Rx tablet vomiting #30 tabs magnesium citrate 150 ml PO BID #296 mL 08/27/23 10/12/23 Rx sennosides 8.6 mg-docusate sodium 1 tab-cap PO BID PRN constipation 09/06/23 Unknown History 50 mg capsule (Senna Plus) diazepam 5 mg tablet (Valium) 5 mg PO QHS PRN muscle spasm #12 09/08/23 10/11/23 Rx tabs dexamethasone 4 mg tablet 4 mg PO DAILY #36 tabs 09/14/23 Unknown Rx tramadol 50 mg tablet 25 mg PO QHS NECK PAIN 10/12/23 10/11/23 History Allergy/AdvReac Type Severity Reaction Status Date / Time Environmental Allergies: Allergy sneezing Verified 10/12/23 13:03 Uncoded (hay) animal dander AdvReac Mild Other Verified 10/12/23 13:03 oak AdvReac Mild Other Verified 10/12/23 13:03 moxifloxacin HCl (From AdvReac Nausea Verified 10/12/23 13:03 Avelox) prochlorperazine (From AdvReac Other Verified 10/12/23 13:03 Compazine) prochlorperazine edisylate AdvReac Other Verified 10/12/23 13:03 (From Compazine) prochlorperazine maleate AdvReac Other Verified 10/12/23 13:03 (From Compazine) Family History Father Hypertension Kidney disease Mother Hypertension CVA (cerebral vascular accident) Alzheimer disease Surgical History History of esophagogastroduodenoscopy (EGD) History of colonoscopy History of excision of lesion History of left knee surgery History of back surgery History of appendectomy History of right hemicolectomy Social History household members: spouse housing: house Smoking Status: Former smoker pack-years: 63 Tobacco: How many years used: 35 second hand exposure: No alcohol intake: current alcohol intake frequency: holidays/special occasions only Alcohol type: beer substance use type: does not use caffeine: Yes (3/day) ROS ROS Narrative Pertinent positives and pertinent negatives as noted in HPI. All other systems were reviewed and are negative Vital Signs Vital Signs Vital Signs: 10/12/23 13:05 10/12/23 13:34 10/12/23 13:34 Temperature 97.4 F L Temperature Source Oral Pulse Rate 71 Respiratory Rate 16 Respiratory Effort Normal Normal Respiratory Depth Normal Respiratory Pattern Normal Normal Blood Pressure 126/88 H Blood Pressure Mean 100 Pulse Ox 96 95 Oxygen Delivery Method Room Air Room Air 10/12/23 15:03 Temperature Temperature Source Pulse Rate 78 Respiratory Rate 16 Respiratory Effort Respiratory Depth Respiratory Pattern Blood Pressure 132/76 H Blood Pressure Mean 94 Pulse Ox 98 Oxygen Delivery Method Room Air Weight Weight: 72.575 kg Body Mass Index (BMI) 22.3 Physical Exam Narrative Physical exam: General: Appears fatigued in bed and turned towards left side of the bed secondary to pain at his back Head: Normocephalic, excoriation to left side of upper lip. Excoriation to left wrist. Ecchymosis to bilateral upper extremities. Eyes: Vision is grossly intact. EOMI ENT, no trauma, moist mucous membranes, no rhinorrhea Neck: Nontender, No thyromegaly. CVS: Regular rate and rhythm. S1-S2 present. No murmur, gallop or rub. Respiratory : clear to auscultation bilaterally, chest wall nontender Abdomen: Soft, nontender, nondistended, normal bowel sounds, no masses : Deferred Back: Nontender, no CVA tenderness, no midline spinal tenderness, deformities, step-offs Extremities: Nontender full range of motion, no trauma Skin: Normal color, no trauma, abrasions Neuro: Alert, oriented, cranial nerves II through XII grossly intact. Strength in right upper and right lower extremity 5 out of 5 to Psychiatry: Normal mood. Normal affect. Not depressed. Not anxious. Results Lab / Micro Data 10/12/23 13:52 10/12/23 13:52 Labs: Laboratory Results - last 24 hr 10/12/23 13:52: WBC 5.0, RBC 3.58 L, Hgb 11.3 L, Hct 34.8 L, MCV 97.2 H, MCH 31.6, MCHC 32.5, RDW Std Deviation 63.1 H, RDW Coeff of Linwood 17.6 H, Plt Count 138 L, MPV 9.9, Immature Gran % (Auto) 1.800 H, Neut % (Auto) 75.8 H, Lymph % (Auto) 8.9 L, [place] % (Auto) 11.7 H, Eos % (Auto) 0.2, Baso % (Auto) 1.6 H, Absolute Neuts (auto) 3.8, Absolute Lymphs (auto) 0.45 L, Nucleated RBC % 0, Differential Comment SCANNED, Toxic Granulation 1+, Toxic Vacuolation 1+, Dohle Bodies 1+, Anisocytosis 1+, Ovalocytes 1+, Sodium 129 L, Potassium 4.0, Chloride 96 L, Carbon Dioxide 29.0, Anion Gap 4 L, BUN 39 H, Creatinine 0.79, Estim Creat Clear Calc 79.38, Est GFR (MDRD) Af Amer 122, Est GFR (MDRD) Non-Af 101, BUN/Creatinine Ratio 49.3 H, Glucose 96, Calcium 9.6, Total Bilirubin 0.60, AST 22, ALT 45, Alkaline Phosphatase 129 H, Total Protein 6.7, Albumin 3.5, Globulin 3.2, Albumin/Globulin Ratio 1.1 10/12/23 15:56: Urine Color Yellow, Urine Clarity Clear, Urine pH 5.0, Ur Specific Soper 1.025, Urine Protein Negative, Urine Glucose (UA) Normal, Urine Ketones Negative, Urine Occult Blood Negative, Urine Nitrite Negative, Urine Bilirubin Negative, Urine Urobilinogen Normal, Ur Leukocyte Esterase Negative, Urine RBC 0 SEEN, Urine WBC 0 SEEN, Ur Squamous Epith Cells 0 SEEN, Urine Bacteria 0 SEEN, Urine Mucus 0 SEEN Imaging Radiology Impression Brain CT 10/12/23 13:25 IMPRESSION: No acute intracranial process. Electronically Signed: Shabana Hunt MD at 14:17 EDT , Cervical Spine CT 10/12/23 13:25 IMPRESSION: Multilevel degenerative changes. Interval decrease in size of pathologically enlarged left supraclavicular lymph node. Emphysema. Electronically Signed: Shabana Hunt MD at 14:24 EDT , Facial/Sinus 10/12/23 13:25 IMPRESSION: 1. Acute fracture in the anterior alveolar wall of the left upper canine tooth causing loosening of this tooth. 2. No other fractures. 3. Prominent periapical cyst around the left upper second premolar tooth. The left upper first premolar tooth abuts the anterior wall of the prominent left upper second premolar periapical cyst. 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 Essentially family is hoping to get patient in-house therapy with eventual transfer to outside facility for further rehabilitation. While in the emergency department upon discussion with ED provider patient's was made a DNR CCA. Generalized weakness/adult failure to thrive. Likely due to chemotherapy and cancer. PT and OT spoke with patient per case management consult. Likely patient will go to rehabilitation after discharge from the hospital Hyponatremia Mild Secondary to poor nutrition. Less likely related to cancer as this is acute. Gentle IV hydration. Trend BMP. Acute on chronic pain On home Ultram nightly. Shared decision with family and patient that pain medication frequency should be escalated. History of left leg DVT Eliquis continue DVT prophylaxis: Eliquis as above. Time spent in the patient's overall evaluation,decision-making process, review of diagnostic data, adjustment of management, discussion with other providers, nursing and ancillary staff involved in patient's care documentation, 70 minutes. Charges/Coding Visit Charges Inpatient E&M: 11753 Init Hosp L3
--- NOTE | 2023-10-12 16:35 | NURSING ---
MED SURG OBS AGYEPONG FAILURE TO THRIVE, METASTATIC CANCER, HYPONATREMIA, MECHANICAL FALL
[2023-10-12] MEDS: Acetaminophen 325 MG Tablet 650 MG PO (20:00)
[2023-10-12] MEDS: 0.9% Normal Saline (1000mL) 1,000 ML 75 ML IV (20:03)
[2023-10-12] MEDS: MELATONIN 3 MG TABLET PO (22:11)
[2023-10-12] MEDS: APIXABAN 5 MG TABLET PO (22:11)
[2023-10-13] VITALS (7 sets, daily range): BP systolic 110–145; BP diastolic 63–76; PULSE 69–74; RESP 15–18; TEMP 36.4–36.9; O2SAT 94–97
[2023-10-13] MEDS: Acetaminophen 325 MG Tablet 650 MG PO ×4 (02:50→21:24)
[2023-10-13 06:29] LABS: Absolute Lymphocyte Count 0.49 X10^3/uL (0.83-4.51); Absolute Neutrophil Count 3.8 X10^3/uL (2.0-7.7); Basophil# 0.04 X10^3/uL; Basophil% 0.8 % (0-1); Eosinophil# 0.02 X10^3/uL; Eosinophils% 0.4 % (0-5); Hematocrit 32.8 % (40-54); Hemoglobin 10.9 g/dL (13.0-16.5); Lymphocyte # 0.49 X10^3/ul (0.83-4.51); Lymphocyte % 9.4 % (19-41); Mean Corp Hgb Conc 33.2 g/dL (32-36); Mean Corpuscular Hgb 32.8 pg (27.0-32.0); Mean Corpuscular Volume 98.8 fL (80-94); Mean Platelet Vol. 9.6 fl (6.2-12.0); Monocyte# 0.76 X10^3/uL; Monocyte% 14.6 % (0-10); NRBC Flagged by Analyzer 0 % (0-5); Neutrophil # 3.81 X10^3/uL (2.7-7.7); Neutrophil % 73.5 % (47-70); POSITIVE DIFFERENTIAL YES; POSITIVE MORPHOLOGY YES; Platelet Count 131 K/mm3 (150-450); RBC Distribution Width CV 17.6 % (11.6-14.6); RBC Distribution Width SD 64.2 fl (35.1-43.9); Red Blood Count 3.32 M/mm3 (4.6-6.2); White Blood Count 5.2 K/mm3 (4.4-11.0)
[2023-10-13 06:51] LABS: Differential Indicated SCAN CRITERIA MET
[2023-10-13 07:07] LABS: Anion Gap 9 (5-15); BUN 35 mg/dL (7-18); BUN/Creat Ratio 43.8 RATIO (10-20); Calcium,Total 9.5 mg/dL (8.5-10.1); Chloride 100 mmol/L (98-107); EST Glomerular Filtration Rate 100 mL/min (>60); Est Glom Filt Rate - Afr Amer 120 mL/min (>60); Estimated Creatinine Clearance 74.42 ml/min; Glucose 87 mg/dL (74-106); Potassium 4.5 mmol/L (3.5-5.1); Sodium Level 135 mmol/L (136-145); Thyroid Stim Hormone (TSH) 0.98 uIU/mL (0.358-3.74)
[2023-10-13] MEDS: Potassium Chloride Oral Tablet 20 MEQ PO (07:56)
[2023-10-13] MEDS: APIXABAN 5 MG TABLET PO ×2 (07:56→21:24)
[2023-10-13] MEDS: Folic Acid 1 MG Tablet PO (07:56)
[2023-10-13] MEDS: Tamsulosin HCl 0.4 MG Capsule PO (07:56)
[2023-10-13] MEDS: 0.9% Saline Lock 10 ML Syringe IV (07:56)
[2023-10-13] MEDS: 0.9% Normal Saline (1000mL) 1,000 ML 75 ML IV (07:56)
[2023-10-13] MEDS: traMADol 50 MG Tablet 25 MG PO ×2 (07:56→14:07)
[2023-10-13 10:03] LABS: Differential Comment SCANNED
--- NOTE | 2023-10-13 10:21 | PCM.PN.HOSP ---
Reason for Visit Reason for Visit: Diagnoses Hypo-osmolality and hyponatremia (10/12/23) Repeated falls (10/12/23) Adult failure to thrive (10/12/23) Contusion of other part of head, initial encounter (10/12/23) Subjective Subjective Patient lying in bed, reports he is having neck pain which is chronic, still feels weak overall but has no other acute or localizing complaints Objective Data Objective Data Vital Signs: Vital Signs Temp Pulse Resp BP Pulse Ox O2 Del Method 97.6 F L 72 18 145/76 H 96 Room Air 10/13/23 07:55 10/13/23 07:55 10/13/23 07:55 10/13/23 07:55 10/13/23 07:55 10/13/23 07:55 Oxygen Delivery Method Room Air Weight: 68.039 kg Body Mass Index (BMI) 20.9 Intake & Output: Intake and Output for Last 24 Hours 10/11/23 10/12/23 10/13/23 23:59 23:59 23:59 Intake Total 1000 / 1200 1091.25 / 1091.25 Output Total 350 / 350 Balance 1000 / 1200 741.25 / 741.25 Lab / Micro Data 10/13/23 06:02 10/13/23 06:02 Labs: Laboratory Results - last 24 hr 10/12/23 13:52: WBC 5.0, RBC 3.58 L, Hgb 11.3 L, Hct 34.8 L, MCV 97.2 H, MCH 31.6, MCHC 32.5, RDW Std Deviation 63.1 H, RDW Coeff of Linwood 17.6 H, Plt Count 138 L, MPV 9.9, Immature Gran % (Auto) 1.800 H, Neut % (Auto) 75.8 H, Lymph % (Auto) 8.9 L, [place] % (Auto) 11.7 H, Eos % (Auto) 0.2, Baso % (Auto) 1.6 H, Absolute Neuts (auto) 3.8, Absolute Lymphs (auto) 0.45 L, Nucleated RBC % 0, Differential Comment SCANNED, Toxic Granulation 1+, Toxic Vacuolation 1+, Dohle Bodies 1+, Anisocytosis 1+, Ovalocytes 1+, Sodium 129 L, Potassium 4.0, Chloride 96 L, Carbon Dioxide 29.0, Anion Gap 4 L, BUN 39 H, Creatinine 0.79, Estim Creat Clear Calc 79.38, Est GFR (MDRD) Af Amer 122, Est GFR (MDRD) Non-Af 101, BUN/Creatinine Ratio 49.3 H, Glucose 96, Calcium 9.6, Total Bilirubin 0.60, AST 22, ALT 45, Alkaline Phosphatase 129 H, Total Protein 6.7, Albumin 3.5, Globulin 3.2, Albumin/Globulin Ratio 1.1 10/12/23 15:56: Urine Color Yellow, Urine Clarity Clear, Urine pH 5.0, Ur Specific [place] 1.025, Urine Protein Negative, Urine Glucose (UA) Normal, Urine Ketones Negative, Urine Occult Blood Negative, Urine Nitrite Negative, Urine Bilirubin Negative, Urine Urobilinogen Normal, Ur Leukocyte Esterase Negative, Urine RBC 0 SEEN, Urine WBC 0 SEEN, Ur Squamous Epith Cells 0 SEEN, Urine Bacteria 0 SEEN, Urine Mucus 0 SEEN 10/13/23 06:02: WBC 5.2, RBC 3.32 L, Hgb 10.9 L, Hct 32.8 L, MCV 98.8 H, MCH 32.8 H, MCHC 33.2, RDW Std Deviation 64.2 H, RDW Coeff of Linwood 17.6 H, Plt Count 131 L, MPV 9.6, Immature Gran % (Auto) 1.300 H, Neut % (Auto) 73.5 H, Lymph % (Auto) 9.4 L, [place] % (Auto) 14.6 H, Eos % (Auto) 0.4, Baso % (Auto) 0.8, Absolute Neuts (auto) 3.8, Absolute Lymphs (auto) 0.49 L, Nucleated RBC % 0, Differential Comment SCANNED, Sodium 135 L, Potassium 4.5, Chloride 100, Carbon Dioxide 26.0, Anion Gap 9, BUN 35 H, Creatinine 0.80, Estim Creat Clear Calc 74.42, Est GFR (MDRD) Af Amer 120, Est GFR (MDRD) Non-Af 100, BUN/Creatinine Ratio 43.8 H, Glucose 87, Calcium 9.5, TSH 0.98 Radiography Diagnostic Testing: Radiology Impression Brain CT 10/12/23 13:25 IMPRESSION: No acute intracranial process. Electronically Signed: Shabana Hunt MD at 14:17 EDT , Cervical Spine CT 10/12/23 13:25 IMPRESSION: Multilevel degenerative changes. Interval decrease in size of pathologically enlarged left supraclavicular lymph node. Emphysema. Electronically Signed: Shabana Hunt MD at 14:24 EDT , Facial/Sinus 10/12/23 13:25 IMPRESSION: 1. Acute fracture in the anterior alveolar wall of the left upper canine tooth causing loosening of this tooth. 2. No other fractures. 3. Prominent periapical cyst around the left upper second premolar tooth. The left upper first premolar tooth abuts the anterior wall of the prominent left upper second premolar periapical cyst. Electronically Signed: Jung Nieto MD at 15:32 EDT , Physical Exam Narrative General: Alert, oriented, no apparent distress HEENT: Atraumatic, normocephalic Eyes: Anicteric, normal conjunctiva, extraocular movements grossly intact Neck: Supple Respiratory: Normal respiratory effort Cardiovascular: Regular rate GI: Soft, nontender, nondistended Extremities: No edema Musculoskeletal: Moving all extremities Neuro: No overt focal neurological deficits Skin: Patient with left upper lip stitch in place Psych: Cooperative Assessment & Plan Assessment/Plan (1) Acute hyponatremia: (2) Adult failure to thrive: (3) Contusion of face: QUALIFIERS: Encounter type: initial encounter Qualified Code(s): S00.83XA - Contusion of other part of head, initial encounter (4) Frequent falls: PLAN: Plan #Generalized weakness -Likely multifactorial secondary to acute hyponatremia, poor p.o. intake, metastatic cancer -Patient received IV fluids and his hyponatremia has improved but patient continues to feel weak -Awaiting PT/OT evaluation -TSH within normal limits -Optimize nutrition #Metastatic L adeno CA of lung -Patient receiving treatment every [address] Kiser, last treatment 1 week ago -Will need to continue following outpatient -Supportive care #Acute hyponatremia- improved -Patient's sodium was 137 on 10/04 and was found to be 129 on 10/11 -Seem that this may be due to poor p.o. intake and dehydration as this improved to 135 with just IV fluids -Decrease rate of IV fluids -Encourage p.o. intake -Dietary supplementation with Ensure #Hx emphysema -prn inhalers #Chronic macrocytic anemia -Appears to be at baseline, will check B12, vitamin D, folate, iron panel and monitor #Hx DVT on eliquis -Patient remains on his home Eliquis #Maxillar fracture -Supportive care/pain control #Chronic BPH with obstruction -Continue home medications #DVT ppx: Obie Odom MD Time spent in the patient's overall evaluation,decision-making process, review of diagnostic data, adjustment of management, discussion with other providers, nursing nursing and ancillary staff involved in patient's care documentation, 36 minutes Charges/Coding Visit Charges Inpatient E&M: 56785 Subs Hosp L2
--- NOTE | 2023-10-13 14:12 | CASEMGMT ---
Discharge Planning A list of?HH providers including quality and resource use data and consistent with the patient's preferred geographic region, medical needs, and insurance network was created in [employer] Guide.? This list was provided to the RN KATIE. Cherie Castle, Discharge Planning Asst.
--- NOTE | 2023-10-13 14:25 | CASEMGMT ---
Discharge strike planning applications provided list of [facility] agencies. RN CM into pt room, reviewed therapy notes and discussed discharge planning options with pt, pt states lives with , has a walker at home, raised toilet seat and will look into buying a shower bench. Pt states I with ADLs, needs some assistance with cooking and cleaning. Provided list of [facility] agencies covered by insurance to pt. Pt selected [facility] as agency of choice. Attempted to call to discuss DC plan, no answer and unable to leave VM. Will attempt again. TC hanane Paula at [facility], referral made. Waiting on acceptance.
--- NOTE | 2023-10-13 15:00 | CASEMGMT ---
Social Work SW met with pt and to discuss advance directives.? Pt's confirms pt has completed a living will and she does not believe he has completed a health care POA. SW requested living will be brought in for scanning into medical record. TIANNA provided pt's with rack card for Advance Directives. ? GENOVEVA Lynn
--- NOTE | 2023-10-13 15:04 | CASEMGMT ---
Addendum entered by Sonja Barraza 10/13/23 15:53: reviewed pt chart, pt qualifies for hospital bed. BRITTANY WILSON into pt room to discuss hospital bed and informed should be covered under insurance. Pt states he will discuss with . Informed pt will speak with hospitalist to get script for pt if interested. Green sheet on chart, BRITTANY WILSON to check in with pt tomorrow to confirm they want this sent through insurance. Original Note: BRITTANY WILSON spoke with in room, stated live in a 2 story home with 1 step to enter. agreeable to plan of DC with [facility] services. States bathroom on main level, pt been sleeping on couch. states she is looking into [facility] for a hospital bed and planning to purchase a shower bench for pt. Nisa from [facility] called and confirmed acceptance. SOC is Monday10/16/23. Informed pt of acceptance.
--- NOTE | 2023-10-13 15:26 | CASEMGMT ---
Met with patient to complete REBOLLAR form. REBOLLAR form explained to patient who voiced understanding and signed form. Original form placed in pt?s chart and copy provided to patient. Cherie Castle, Discharge Planning Asst
[2023-10-14 02:03] VITALS: BP 134/82; PULSE 75; RESP 15; TEMP 36.8; O2SAT 92
[2023-10-14] MEDS: traMADol 50 MG Tablet 25 MG PO ×4 (02:13→19:20)
[2023-10-14] MEDS: Acetaminophen 325 MG Tablet 650 MG PO ×2 (03:37→12:39)
[2023-10-14 08:03] VITALS: BP 119/72; PULSE 70; RESP 18; TEMP 36.6; O2SAT 95
--- NOTE | 2023-10-14 08:06 | EKG12_ITS ---
Test Reason : ARRYTHMIA Blood Pressure : / mmHG Vent. Rate : 075 BPM Atrial Rate : 075 BPM P-R Int : 142 ms QRS Dur : 074 ms QT Int : 378 ms P-R-T Axes : 086 058 060 degrees QTc Int : 422 ms Sinus rhythm with marked sinus arrhythmia Otherwise normal ECG No previous ECGs available Confirmed by CHARLIE RUIZ, GILMA ([id number]), news video editor RADHA STEPHENSON ([id number]) on 10/17/2023 5:57:46 AM Referred By: [facility] Confirmed By:GILMA GUERRA MD
[2023-10-14] MEDS: Albuterol 2.5 MG/3 ML VIAL.NEB. INHALATION (08:17)
[2023-10-14] MEDS: Potassium Chloride Oral Tablet 20 MEQ PO (08:17)
[2023-10-14] MEDS: Tamsulosin HCl 0.4 MG Capsule PO (08:17)
[2023-10-14] MEDS: Folic Acid 1 MG Tablet PO (08:17)
[2023-10-14] MEDS: APIXABAN 5 MG TABLET PO ×2 (08:18→21:53)
[2023-10-14 08:20] LABS: Absolute Lymphocyte Count 0.82 X10^3/uL (0.83-4.51); Basophil# 0.09 X10^3/uL; Eosinophil# 0.01 X10^3/uL; Eosinophils% 0.1 % (0-5); Hematocrit 32.3 % (40-54); Hemoglobin 10.7 g/dL (13.0-16.5); Lymphocyte # 0.82 X10^3/ul (0.83-4.51); Lymphocyte % 9.1 % (19-41); Mean Corp Hgb Conc 33.1 g/dL (32-36); Mean Corpuscular Hgb 32.4 pg (27.0-32.0); Mean Corpuscular Volume 97.9 fL (80-94); Mean Platelet Vol. 9.6 fl (6.2-12.0); Monocyte# 0.97 X10^3/uL; Monocyte% 10.8 % (0-10); NRBC Flagged by Analyzer 0 % (0-5); Neutrophil # 6.95 X10^3/uL (2.7-7.7); Neutrophil % 77.6 % (47-70); POSITIVE MORPHOLOGY YES; Platelet Count 149 K/mm3 (150-450); RBC Distribution Width CV 17.7 % (11.6-14.6); RBC Distribution Width SD 62.7 fl (35.1-43.9)
[2023-10-14 08:28] VITALS: PULSE 75; RESP 20; O2SAT 94
[2023-10-14 08:28] LABS: Differential Indicated SCAN CRITERIA MET
[2023-10-14 09:40] LABS: Anion Gap 8 (5-15); BUN 25 mg/dL (7-18); BUN/Creat Ratio 34.8 RATIO (10-20); Calcium,Total 9.3 mg/dL (8.5-10.1); Chloride 101 mmol/L (98-107); Creatinine, Serum 0.72 mg/dL (0.70-1.30); EST Glomerular Filtration Rate 113 mL/min (>60); Est Glom Filt Rate - Afr Amer 136 mL/min (>60); Estimated Creatinine Clearance 74.38 ml/min; Glucose 83 mg/dL (74-106); Potassium 4.3 mmol/L (3.5-5.1); Sodium Level 133 mmol/L (136-145)
[2023-10-14 10:29] LABS: Magnesium 1.8 mg/dL (1.6-2.6)
--- NOTE | 2023-10-14 12:22 | PN.HOSP_ITS ---
Reason for Visit Reason for Visit: Diagnoses Hypo-osmolality and hyponatremia (10/12/23) Repeated falls (10/12/23) Adult failure to thrive (10/12/23) Contusion of other part of head, initial encounter (10/12/23) Subjective Subjective Feels weaker today and generally unwell, said he feels much weaker than yesterday when he worked with therapy Objective Data Objective Data Vital Signs: Vital Signs Temp Pulse Resp BP Pulse Ox O2 Del Method 97.8 F 75 20 H 119/72 94 Room Air 10/14/23 08:03 10/14/23 08:28 10/14/23 08:28 10/14/23 08:03 10/14/23 08:28 10/14/23 08:28 Oxygen Delivery Method Room Air Weight: 68 kg Body Mass Index (BMI) 20.9 Intake & Output: Intake and Output for Last 24 Hours 10/12/23 10/13/23 10/14/23 23:59 23:59 23:59 Intake Total 1000 / 1200 1491.25 / 1491.25 800 / 800 Output Total 350 / 350 400 / 400 Balance 1000 / 1200 1141.25 / 1141.25 400 / 400 Lab / Micro Data 10/14/23 07:44 10/14/23 07:44 Labs: Laboratory Results - last 24 hr 10/14/23 07:44: WBC 9.0, RBC 3.30 L, Hgb 10.7 L, Hct 32.3 L, MCV 97.9 H, MCH 32.4 H, MCHC 33.1, RDW Std Deviation 62.7 H, RDW Coeff of [place] 17.7 H, Plt Count 149 L, MPV 9.6, Immature Gran % (Auto) 1.400 H, Neut % (Auto) 77.6 H, Lymph % (Auto) 9.1 L, [place] % (Auto) 10.8 H, Eos % (Auto) 0.1, Baso % (Auto) 1.0, Absolute Neuts (auto) 7.0, Absolute Lymphs (auto) 0.82 L, Nucleated RBC % 0, Differential Comment , Sodium 133 L, Potassium 4.3, Chloride 101, Carbon Dioxide 24.0, Anion Gap 8, BUN 25 H, Creatinine 0.72, Estim Creat Clear Calc 74.38, Est GFR (MDRD) Af Amer 136, Est GFR (MDRD) Non-Af 113, BUN/Creatinine Ratio 34.8 H, Glucose 83, Calcium 9.3, Folate 33.00 10/14/23 07:45: Magnesium 1.8 Physical Exam Narrative General: Alert, oriented, no apparent distress HEENT: Atraumatic, normocephalic Eyes: Anicteric, normal conjunctiva, extraocular movements grossly intact Neck: Supple Respiratory: Normal respiratory effort Cardiovascular: Regular rate GI: Soft, nontender, nondistended Extremities: No edema Musculoskeletal: Moving all extremities Neuro: No overt focal neurological deficits Skin: Patient with left upper lip stitch in place Psych: Cooperative Assessment & Plan Assessment/Plan (1) Acute hyponatremia: (2) Adult failure to thrive: (3) Contusion of face: QUALIFIERS: Encounter type: initial encounter Qualified Code(s): S00.83XA - Contusion of other part of head, initial encounter (4) Frequent falls: PLAN: Plan #Generalized weakness -Likely multifactorial secondary to acute hyponatremia, poor p.o. intake, metastatic cancer -Patient received IV fluids and his hyponatremia has improved but patient continues to feel weak -Awaiting PT/OT evaluation -TSH within normal limits -Optimize nutrition -10/13: Weaker today than yesterday, query if this is due to sodium decreasing again versus his general debility and cancer with the addition of poor p.o. intake We work with PT, also sent prescription for hospital bed for patient in the event he is still able to go home upon discharge and not SNF #Metastatic L adeno CA of lung -Patient receiving treatment every [address] Kiser, last treatment 1 week ago -Will need to continue following outpatient -Supportive care -10/13: reports she will have him follow-up with Dr. Kiser on an outpatient basis and wants to discuss his chemo further #Acute hyponatremia -Patient's sodium was 137 on 10/04 and was found to be 129 on 10/11 -Seem that this may be due to poor p.o. intake and dehydration as this improved to 135 with just IV fluids -Decrease rate of IV fluids -Encourage p.o. intake -Dietary supplementation with Ensure -10/13: Down trended slightly to 133 patient feels weaker today, will resume IV fluids and will send studies for further workup #Possible irregular heart rhythm -On nurses exam she thought heart rate was irregular so EKG obtained which showed normal sinus rhythm -Upon further review of previous records patient has had multiple EKGs with PACs noted -Could always consider heart monitor on discharge however patient without any accelerated heart rate and he is already on Eliquis -Mag is within normal limits #Hx emphysema -prn inhalers -10/13: Denying any shortness of breath #Chronic macrocytic anemia -Appears to be at baseline, will check B12, vitamin D, folate, iron panel and monitor -10/13: TSH within normal limits, folate within normal limits, B12 and vitamin D pending #Hx DVT on eliquis -Patient remains on his home Eliquis -10/13: Continue home medication #Maxillar fracture -Supportive care/pain control #Chronic BPH with obstruction -Continue home medications #DVT ppx: Obie Odom MD Time spent in the patient's overall evaluation,decision-making process, review of diagnostic data, adjustment of management, discussion with other providers, nursing nursing and ancillary staff involved in patient's care documentation, 37 minutes Charges/Coding Visit Charges Inpatient E&M: 89632 Subs Hosp L2
[2023-10-14 14:45] VITALS: BP 118/76; PULSE 75; RESP 18; TEMP 36; O2SAT 93
[2023-10-14] MEDS: 0.9% Normal Saline (1000mL) 1,000 ML 50 ML IV (14:49)
[2023-10-14] MEDS: 0.9% Saline Lock 10 ML Syringe IV (14:49)
[2023-10-14 15:39] LABS: Urea Nitrogen, Urine 966 mg/dL (NO RANGE EST.); Urine Chloride 195 mmol/L (Not Establ.); Urine Sodium 155 mmol/L (Not Establ.)
[2023-10-14] MEDS: Acetaminophen 500 MG Tablet 1000 MG PO (19:21)
[2023-10-14 20:46] VITALS: BP 137/79; PULSE 75; RESP 18; TEMP 36.4; O2SAT 94
[2023-10-14] MEDS: diazePAM 5 MG Tablet PO (21:53)
[2023-10-14] MEDS: MELATONIN 3 MG TABLET PO (21:53)
[2023-10-15] MEDS: traMADol 50 MG Tablet PO ×3 (02:26→18:24)
[2023-10-15 02:45] VITALS: BP 139/81; PULSE 68; RESP 18; TEMP 36.4; O2SAT 95
[2023-10-15] MEDS: Acetaminophen 500 MG Tablet 1000 MG PO ×3 (05:39→21:23)
[2023-10-15 06:35] LABS: Absolute Neutrophil Count 8.3 X10^3/uL (2.0-7.7); Basophil# 0.08 X10^3/uL; Basophil% 0.8 % (0-1); Eosinophil# 0.02 X10^3/uL; Eosinophils% 0.2 % (0-5); Hematocrit 32.2 % (40-54); Hemoglobin 10.5 g/dL (13.0-16.5); Lymphocyte % 7.9 % (19-41); Mean Corp Hgb Conc 32.6 g/dL (32-36); Mean Corpuscular Hgb 32.5 pg (27.0-32.0); Mean Corpuscular Volume 99.7 fL (80-94); Mean Platelet Vol. 9.7 fl (6.2-12.0); Monocyte# 0.79 X10^3/uL; Monocyte% 7.8 % (0-10); NRBC Flagged by Analyzer 0 % (0-5); Neutrophil # 8.27 X10^3/uL (2.7-7.7); POSITIVE MORPHOLOGY YES; Platelet Count 143 K/mm3 (150-450); RBC Distribution Width CV 17.5 % (11.6-14.6); RBC Distribution Width SD 63.7 fl (35.1-43.9); Red Blood Count 3.23 M/mm3 (4.6-6.2); White Blood Count 10.1 K/mm3 (4.4-11.0)
[2023-10-15 06:41] LABS: Differential Indicated SCAN CRITERIA MET
[2023-10-15 07:02] LABS: Anion Gap 13 (5-15); BUN 23 mg/dL (7-18); BUN/Creat Ratio 31.7 RATIO (10-20); Calcium,Total 9.3 mg/dL (8.5-10.1); Chloride 99 mmol/L (98-107); Creatinine, Serum 0.73 mg/dL (0.70-1.30); EST Glomerular Filtration Rate 111 mL/min (>60); Est Glom Filt Rate - Afr Amer 135 mL/min (>60); Estimated Creatinine Clearance 74.38 ml/min; Glucose 78 mg/dL (74-106); Sodium Level 134 mmol/L (136-145)
[2023-10-15 07:18] LABS: Toxic Granulation 1+
[2023-10-15 08:05] LABS: Osmolality, Serum 284 mOsm/KG (280-301)
[2023-10-15 08:17] VITALS: BP 140/76; PULSE 73; RESP 18; TEMP 36.4; O2SAT 98
[2023-10-15] MEDS: Potassium Chloride Oral Tablet 20 MEQ PO (08:27)
[2023-10-15] MEDS: Folic Acid 1 MG Tablet PO (08:28)
[2023-10-15] MEDS: APIXABAN 5 MG TABLET PO ×2 (08:28→21:23)
[2023-10-15] MEDS: Tamsulosin HCl 0.4 MG Capsule PO (08:28)
[2023-10-15] MEDS: 0.9% Normal Saline (1000mL) 1,000 ML 50 ML IV (10:00)
[2023-10-15] MEDS: Sertraline 50 MG Tablet PO (11:38)
--- NOTE | 2023-10-15 14:05 | PN.HOSP_ITS ---
Subjective Subjective Seems a little bit stronger and less fatigued today per report. He did struggle with physical therapy and his is concerned about being able to take him home Objective Data Objective Data Vital Signs: Vital Signs Temp Pulse Resp BP Pulse Ox O2 Del Method 97.6 F L 73 18 140/76 H 98 Room Air 10/15/23 08:17 10/15/23 08:17 10/15/23 08:17 10/15/23 08:17 10/15/23 08:17 10/15/23 08:17 Oxygen Delivery Method Room Air Weight: 149 lb 14.629 oz Body Mass Index (BMI) 20.9 Intake & Output: Intake and Output for Last 24 Hours 10/14/23 10/15/23 10/16/23 03:59 03:59 03:59 Intake Total 1990.25 / 300 / 300 959.17 / 959.17 Output Total 750 / 750 400 / 400 Balance 1241.25 / 1241.25 -100 / -100 959.17 / 959.17 Lab / Micro Data 10/15/23 05:50 10/15/23 05:50 Labs: Laboratory Results - last 24 hr 10/14/23 : Ur Random Sodium 155, Urine Creatinine 104.00, Urine Potassium 45.0, Urine Chloride 195, Urine Urea Nitrogen 966 10/15/23 05:50: WBC 10.1, RBC 3.23 L, Hgb 10.5 L, Hct 32.2 L, MCV 99.7 H, MCH 32.5 H, MCHC 32.6, RDW Std Deviation 63.7 H, RDW Coeff of [place] 17.5 H, Plt Count 143 L, MPV 9.7, Immature Gran % (Auto) 1.300 H, Neut % (Auto) 82.0 H, Lymph % (Auto) 7.9 L, [place] % (Auto) 7.8, Eos % (Auto) 0.2, Baso % (Auto) 0.8, Absolute Neuts (auto) 8.3 H, Absolute Lymphs (auto) 0.80 L, Nucleated RBC % 0, Toxic Granulation 1+, Sodium 134 L, Potassium 4.0, Chloride 99, Carbon Dioxide 22.0, Anion Gap 13, BUN 23 H, Creatinine 0.73, Estim Creat Clear Calc 74.38, Est GFR (MDRD) Af Amer 135, Est GFR (MDRD) Non-Af 111, BUN/Creatinine Ratio 31.7 H, Glucose 78, Serum Osmolality 284, Calcium 9.3 Physical Exam Narrative General: Alert, Oriented x3, Cooperative, No apparent distress HEENT: Atraumatic, PERRLA, EOMI, Normocephalic Oral: Moist Mucosa, left upper lip bruised with a stitch Neck: Supple, No JVD Lungs: Diminished, Normal air movement, No rhonchi, No wheeze, No rales Cardiovascular: Regular rate, Regular Rhythm, Normal S1, Normal S2, No murmurs Abdomen: Soft, Non Tender, Non-Distended, No Hepato-splenomegaly Extremities: No edema, Capillary Refill Less than 3 Seconds Skin: No rashes, No breakdown Musculoskeletal: No Tenderness to Palpation of Joints or Extremities Neurological: No focal neurological deficits, Motor Exam 5/5 strength throughout, Sensory exam intact to light touch and pain Psych/Mental Status: Flat Assessment & Plan Assessment/Plan (1) Acute hyponatremia: (2) Adult failure to thrive: (3) Contusion of face: QUALIFIERS: Encounter type: initial encounter Qualified Code(s): S00.83XA - Contusion of other part of head, initial encounter (4) Frequent falls: PLAN: Plan #Generalized weakness -Likely multifactorial secondary to acute hyponatremia, poor p.o. intake, metastatic cancer -Patient received IV fluids and his hyponatremia has improved but patient continues to feel weak -Awaiting PT/OT evaluation -TSH within normal limits -Optimize nutrition -10/13: Weaker today than yesterday, query if this is due to sodium decreasing again versus his general debility and cancer with the addition of poor p.o. intake We work with PT, also sent prescription for hospital bed for patient in the event he is still able to go home upon discharge and not SNF 10/15/2023: Was evaluated by physical therapy was only able to ambulate 20 feet and was unable to do any stairs, likely due to just extended debility as his says that he has lacked motivation for any type of physical activity at home just sleep for sleep sleep sleep like #Metastatic L adeno CA of lung -Patient receiving treatment every [address] Kiser, last treatment 1 week ago -Will need to continue following outpatient -Supportive care -10/13: reports she will have him follow-up with Dr. Kiser on an outpatient basis and wants to discuss his chemo further 10/15/2023: Had a 25-minute discussion advance care planning and prognosis with his cancer it does not appear that they would like to proceed with chemotherapy at this time given the fact that there has been very little response and his mental health has just declined since being diagnosed with metastatic stage IV lung cancer. Will trial him on a dose of Zoloft to see if this helps improve his mood will obviously monitor his sodium with this addition. #Acute hyponatremia -Patient's sodium was 137 on 10/04 and was found to be 129 on 10/11 -Seem that this may be due to poor p.o. intake and dehydration as this improved to 135 with just IV fluids -Decrease rate of IV fluids -Encourage p.o. intake -Dietary supplementation with Ensure -10/13: Down trended slightly to 133 patient feels weaker today, will resume IV fluids and will send studies for further workup #Possible irregular heart rhythm -On nurses exam she thought heart rate was irregular so EKG obtained which showed normal sinus rhythm -Upon further review of previous records patient has had multiple EKGs with PACs noted -Could always consider heart monitor on discharge however patient without any accelerated heart rate and he is already on Eliquis -Mag is within normal limits #Hx emphysema -prn inhalers -10/13: Denying any shortness of breath #Chronic macrocytic anemia -Appears to be at baseline, will check B12, vitamin D, folate, iron panel and monitor -10/13: TSH within normal limits, folate within normal limits, B12 and vitamin D pending #Hx DVT on eliquis -Patient remains on his home Eliquis -10/13: Continue home medication #Maxillar fracture -Supportive care/pain control #Chronic BPH with obstruction -Continue home medications DVT: Eliquis Charges/Coding Multi Select Codes Visit Charges Visit Charges: 75255 Subs Hosp L2 Hospitalists' Procedures Procedures: 59912 Advncd Care Plan 30 Min
[2023-10-15 14:13] VITALS: BP 120/78; PULSE 90; RESP 18; TEMP 36.4; O2SAT 95
[2023-10-15 21:20] VITALS: BP 141/80; PULSE 66; RESP 18; TEMP 36.6; O2SAT 96
[2023-10-15] MEDS: diazePAM 5 MG Tablet PO (21:23)
[2023-10-15] MEDS: MELATONIN 10 MG TABLET PO (21:23)
[2023-10-16] VITALS (7 sets, daily range): BP systolic 120–157; BP diastolic 73–83; PULSE 61–82; RESP 16–18; TEMP 36.4–37.2; O2SAT 87–98
[2023-10-16] MEDS: traMADol 50 MG Tablet 100 MG PO ×2 (00:23→17:04)
[2023-10-16] MEDS: 0.9% Saline Lock 10 ML Syringe IV ×2 (04:15→12:45)
[2023-10-16] MEDS: Morphine 4 MG/ML Syringe IV (04:15)
[2023-10-16] MEDS: Acetaminophen 500 MG Tablet 1000 MG PO ×3 (06:18→20:59)
[2023-10-16 07:24] LABS: Anion Gap 5 (5-15); BUN 18 mg/dL (7-18); BUN/Creat Ratio 29.7 RATIO (10-20); Calcium,Total 9.1 mg/dL (8.5-10.1); Chloride 99 mmol/L (98-107); Creatinine, Serum 0.61 mg/dL (0.70-1.30); EST Glomerular Filtration Rate 137 mL/min (>60); Est Glom Filt Rate - Afr Amer 166 mL/min (>60); Estimated Creatinine Clearance 74.38 ml/min; Glucose 84 mg/dL (74-106); Potassium 4.1 mmol/L (3.5-5.1); Sodium Level 130 mmol/L (136-145)
--- NOTE | 2023-10-16 08:51 | PCM.PN.HOSP ---
Subjective Subjective No issues overnight Objective Data Objective Data Vital Signs: Vital Signs Temp Pulse Resp BP Pulse Ox O2 Del Method 97.5 F L 61 16 157/81 H 93 Room Air 10/16/23 08:41 10/16/23 08:41 10/16/23 08:41 10/16/23 08:41 10/16/23 08:41 10/16/23 08:41 Oxygen Delivery Method Room Air Weight: 149 lb 14.629 oz Body Mass Index (BMI) 20.9 Intake & Output: Intake and Output for Last 24 Hours 10/15/23 10/16/23 10/17/23 03:59 03:59 03:59 Intake Total 300 / 300 1659.17 / 1659.17 300 / 300 Output Total 400 / 400 Balance -100 / -100 1659.17 / 1659.17 300 / 300 Lab / Micro Data 10/15/23 05:50 10/16/23 06:36 Labs: Laboratory Results - last 24 hr 10/16/23 06:36: Sodium 130 L, Potassium 4.1, Chloride 99, Carbon Dioxide 26.0, Anion Gap 5, BUN 18, Creatinine 0.61 L, Estim Creat Clear Calc 74.38, Est GFR (MDRD) Af Amer 166, Est GFR (MDRD) Non-Af 137, BUN/Creatinine Ratio 29.7 H, Glucose 84, Calcium 9.1 Physical Exam Narrative General: Alert, Oriented x3, Cooperative, No apparent distress HEENT: Atraumatic, PERRLA, EOMI, Normocephalic Oral: Moist Mucosa, left upper lip bruised with a stitch Neck: Supple, No JVD Lungs: Diminished, Normal air movement, No rhonchi, No wheeze, No rales Cardiovascular: Regular rate, Regular Rhythm, Normal S1, Normal S2, No murmurs Abdomen: Soft, Non Tender, Non-Distended, No Hepato-splenomegaly Extremities: No edema, Capillary Refill Less than 3 Seconds Skin: No rashes, No breakdown Musculoskeletal: No Tenderness to Palpation of Joints or Extremities Neurological: No focal neurological deficits, Motor Exam 5/5 strength throughout, Sensory exam intact to light touch and pain Psych/Mental Status: Flat Assessment & Plan Assessment/Plan (1) Acute hyponatremia: (2) Adult failure to thrive: (3) Contusion of face: QUALIFIERS: Encounter type: initial encounter Qualified Code(s): S00.83XA - Contusion of other part of head, initial encounter (4) Frequent falls: PLAN: Plan #Generalized weakness -Likely multifactorial secondary to acute hyponatremia, poor p.o. intake, metastatic cancer -Patient received IV fluids and his hyponatremia has improved but patient continues to feel weak -Awaiting PT/OT evaluation -TSH within normal limits -Optimize nutrition -10/13: Weaker today than yesterday, query if this is due to sodium decreasing again versus his general debility and cancer with the addition of poor p.o. intake We work with PT, also sent prescription for hospital bed for patient in the event he is still able to go home upon discharge and not SNF 10/15/2023: Was evaluated by physical therapy was only able to ambulate 20 feet and was unable to do any stairs, likely due to just extended debility as his says that he has lacked motivation for any type of physical activity at home 10/16/2023: Will attempt to obtain pre-CERT for SNF placement #Metastatic L adeno CA of lung -Patient receiving treatment every [address] iKser, last treatment 1 week ago -Will need to continue following outpatient -Supportive care -10/13: reports she will have him follow-up with Dr. Kiser on an outpatient basis and wants to discuss his chemo further 10/15/2023: Had a 25-minute discussion advance care planning and prognosis with his cancer it does not appear that they would like to proceed with chemotherapy at this time given the fact that there has been very little response and his mental health has just declined since being diagnosed with metastatic stage IV lung cancer. Will trial him on a dose of Zoloft to see if this helps improve his mood will obviously monitor his sodium with this addition. 10/16/2023: Given likely depression surrounding his diagnosis continue with Zoloft #Acute hyponatremia -Patient's sodium was 137 on 10/04 and was found to be 129 on 10/11 -Seem that this may be due to poor p.o. intake and dehydration as this improved to 135 with just IV fluids -Decrease rate of IV fluids -Encourage p.o. intake -Dietary supplementation with Ensure -10/13: Down trended slightly to 133 patient feels weaker today, will resume IV fluids and will send studies for further workup #Possible irregular heart rhythm -On nurses exam she thought heart rate was irregular so EKG obtained which showed normal sinus rhythm -Upon further review of previous records patient has had multiple EKGs with PACs noted -Could always consider heart monitor on discharge however patient without any accelerated heart rate and he is already on Eliquis -Mag is within normal limits #Hx emphysema -prn inhalers -10/13: Denying any shortness of breath #Chronic macrocytic anemia -Appears to be at baseline, will check B12, vitamin D, folate, iron panel and monitor -10/13: TSH within normal limits, folate within normal limits, B12 and vitamin D pending #Hx DVT on eliquis -Patient remains on his home Eliquis -10/13: Continue home medication #Maxillar fracture -Supportive care/pain control #Chronic BPH with obstruction -Continue home medications DVT: Eliquis Charges/Coding Visit Charges Inpatient E&M: 53600 Subs Hosp L2
[2023-10-16] MEDS: Folic Acid 1 MG Tablet PO (08:56)
[2023-10-16] MEDS: Potassium Chloride Oral Tablet 20 MEQ PO (08:56)
--- NOTE | 2023-10-16 09:42 | CASEMGMT ---
Addendum entered by Petra Qureshi 10/16/23 11:31: Pt and pt family inquired about the hospital bed that was to be set up for the pt. Pt updated that the SNF will be able to help set this up. Pt notified that the MD did place the appropriate documentation in [facility] and that the pt could request this documentation through medical records if needed. Pt states understanding and denies further needs from this RN CM. Original Note: This RN CM noted that the pt has had increased weakness and PT is recommending SNF for the pt to eventually return to [facility]. Pt is worried about caring for the pt at home in his current condition. This RN CM to pt room at this time. Pt currently at bedside. Pt states that he is willing to go to a SNF at time of DC. A local list of in-network SNF (printed by the DC assistant to the president via [employer]) was provided to the pt and the pt at this time. Will follow. Pt was scheduled for SOC today from [facility]. TC to [facility] and Nisa updated with the new POC. CM and SW to follow.
[2023-10-16] MEDS: APIXABAN 5 MG TABLET PO ×2 (10:01→20:59)
[2023-10-16] MEDS: Tamsulosin HCl 0.4 MG Capsule PO (10:02)
[2023-10-16] MEDS: Sertraline 50 MG Tablet PO (10:03)
--- NOTE | 2023-10-16 10:16 | CASEMGMT ---
Discharge Planning A list of?SNF providers including quality and resource use data and consistent with the patient's preferred geographic region, medical needs, and insurance network was created in [employer] Guide.? This list was provided to the RN KATIE. Cherie Castle, Discharge Planning Asst.
--- NOTE | 2023-10-16 10:25 | CASEMGMT ---
Addendum entered by Cherie Castle 10/16/23 11:09: TCU declined. SW updated. Cherie Castle DC Planning Asst. Original Note: Discharge Planning Patient snf choices are as follows; 1) [facility] TCU, 2) [facility], 3) [facility]. Referral made to TCU. Awaiting response. Cherie Castle DC Planning Asst.
--- NOTE | 2023-10-16 11:40 | CASEMGMT ---
Addendum entered by Cherie Castle 10/16/23 12:11: [facility] declined d/t no male bed availability. SW updated. Cherie Castle DC Planning Asst. Addendum entered by Cherie Castle 10/16/23 11:57: [facility] has accepted. Cherie Castle DC Planning Asst. Original Note: Discharge Planning Referral sent to [facility] and [facility] via [employer]. Cherie Castle DC Planning Asst.
[2023-10-16] MEDS: Ondansetron 4 MG/2 ML Vial IV (12:45)
[2023-10-16 15:10] LABS: Vitamin B12 1928 pg/mL (211-911); Vitamin D,25 Hydroxy 56.3 ng/mL
--- NOTE | 2023-10-16 16:15 | CASEMGMT ---
Social Work Collaboration with RN KATIE and Discharge early childhood assistant today regarding discharge planning. Looking at SNF level of care at discharge. Choices are as follows: [facility]CU, [facility], and [facility]. Per Lizzie at [facility], patient declined. Per DC director of financial planning, declined by [facility] (no male beds) but accepted by [facility]. Went to patient's room to update and patent sleeping soundly, did not wake up even when this screenplay writer entered room. Called the to update. agreeable to this, and reports this is closer for the to visit. Discussed whether patient will be continuing chemo, as this was asked by [facility]. Per , not sure on this until after speaks with Dr. Kiser. reports tHE family is split on whether the chemo is really helping the patient. CC to start precert. Percert obtained late in the day. Updated provider who indicates patient not discharging today. Plan: Short term skilled level of care, 30 days or less, to [facility] whenever patient is medically ready. -RASHEED Polanco
[2023-10-16] MEDS: MELATONIN 10 MG TABLET PO (20:59)
[2023-10-16] MEDS: diazePAM 5 MG Tablet PO (20:59)
[2023-10-17] MEDS: traMADol 50 MG Tablet 100 MG PO ×2 (03:45→17:11)
[2023-10-17 04:00] VITALS: BP 148/88; PULSE 73; RESP 18; TEMP 36.6; O2SAT 93
[2023-10-17] MEDS: Acetaminophen 500 MG Tablet 1000 MG PO ×3 (05:58→22:32)
[2023-10-17 07:31] LABS: Absolute Neutrophil Count 13.3 X10^3/uL (2.0-7.7); Basophil% 0.7 % (0-1); Eosinophil# 0.02 X10^3/uL; Eosinophils% 0.1 % (0-5); Hematocrit 33.6 % (40-54); Lymphocyte % 4.6 % (19-41); Mean Corp Hgb Conc 32.7 g/dL (32-36); Mean Corpuscular Hgb 32.3 pg (27.0-32.0); Mean Corpuscular Volume 98.5 fL (80-94); Mean Platelet Vol. 9.3 fl (6.2-12.0); Monocyte# 0.96 X10^3/uL; Monocyte% 6.3 % (0-10); NRBC Flagged by Analyzer 0 % (0-5); Neutrophil # 13.26 X10^3/uL (2.7-7.7); Neutrophil % 87.1 % (47-70); Platelet Count 156 K/mm3 (150-450); RBC Distribution Width CV 17.7 % (11.6-14.6); RBC Distribution Width SD 63.5 fl (35.1-43.9); Red Blood Count 3.41 M/mm3 (4.6-6.2); White Blood Count 15.2 K/mm3 (4.4-11.0)
[2023-10-17 07:58] VITALS: BP 151/84; PULSE 73; RESP 16; TEMP 36.6; O2SAT 95
[2023-10-17 07:58] LABS: Anion Gap 6 (5-15); BUN 18 mg/dL (7-18); BUN/Creat Ratio 27.2 RATIO (10-20); Calcium,Total 9.5 mg/dL (8.5-10.1); Chloride 97 mmol/L (98-107); Creatinine, Serum 0.66 mg/dL (0.70-1.30); EST Glomerular Filtration Rate 124 mL/min (>60); Est Glom Filt Rate - Afr Amer 150 mL/min (>60); Estimated Creatinine Clearance 74.38 ml/min; Glucose 87 mg/dL (74-106); Potassium 4.6 mmol/L (3.5-5.1); Sodium Level 129 mmol/L (136-145)
[2023-10-17] MEDS: Potassium Chloride Oral Tablet 20 MEQ PO (08:14)
[2023-10-17] MEDS: Folic Acid 1 MG Tablet PO (08:14)
[2023-10-17 09:05] VITALS: O2SAT 95
[2023-10-17] MEDS: Sertraline 50 MG Tablet PO (09:52)
[2023-10-17] MEDS: Tamsulosin HCl 0.4 MG Capsule PO (09:52)
[2023-10-17] MEDS: APIXABAN 5 MG TABLET PO ×2 (09:52→22:32)
[2023-10-17] MEDS: 0.9% Normal Saline (1000mL) 1,000 ML 100 ML IV ×2 (09:54→19:45)
--- NOTE | 2023-10-17 10:15 | CASEMGMT ---
Social Work SW reached out to physician, pt may be d/c later today. SW spoke w/pt and in room, let them know [facility] can take pt and precert is attained. SW will continue to follow for d/c to [facility] when ready. ANNY Ott
--- NOTE | 2023-10-17 13:31 | PCM.PN.HOSP ---
Subjective Subjective Still fairly fatigued and lethargic in bed. He is alert Objective Data Objective Data Vital Signs: Vital Signs Temp Pulse Resp BP Pulse Ox O2 Del Method O2 Flow Rate 97.9 F 73 16 151/84 H 95 Room Air 2 10/17/23 07:58 10/17/23 07:58 10/17/23 07:58 10/17/23 07:58 10/17/23 09:05 10/17/23 09:05 10/16/23 21:32 Oxygen Flow Rate (L/min) 2 Oxygen Delivery Method Room Air Weight: 149 lb 14.629 oz Body Mass Index (BMI) 20.9 Intake & Output: Intake and Output for Last 24 Hours 10/16/23 10/17/23 10/18/23 03:59 03:59 03:59 Intake Total 1659.17 / 1659.17 300 / 300 Balance 1659.17 / 1659.17 300 / 300 Medical Nutrition Assessment Dietitian: Malnutrition Criteria Met Start: 10/13/23 13:19 Freq: Status: Active Protocol: Document 10/16/23 11:30 SLA (Rec: 10/16/23 11:31 SLA [email or web address]) Nutrition Malnutrition Evidence of Malnutrition Exists Yes Malnutrition (severe): Chronic Evidenced By Suboptimal Energy Intake ( Severe),Weight Loss (Severe), Physical Changes (Moderate) Clinical Problem Chronic Disease or Condition Related Malnutrition 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 Lab / Micro Data 10/17/23 07:06 10/17/23 07:06 Labs: Laboratory Results - last 24 hr 10/14/23 07:44: Vitamin B12 1928 H, Vitamin D 25-Hydroxy 56.3 10/17/23 07:06: WBC 15.2 H, RBC 3.41 L, Hgb 11.0 L, Hct 33.6 L, MCV 98.5 H, MCH 32.3 H, MCHC 32.7, RDW Std Deviation 63.5 H, RDW Coeff of [place] 17.7 H, Plt Count 156, MPV 9.3, Immature Gran % (Auto) 1.200 H, Neut % (Auto) 87.1 H, Lymph % (Auto) 4.6 L, [place] % (Auto) 6.3, Eos % (Auto) 0.1, Baso % (Auto) 0.7, Absolute Neuts (auto) 13.3 H, Absolute Lymphs (auto) 0.70 L, Nucleated RBC % 0, Sodium 129 L, Potassium 4.6, Chloride 97 L, Carbon Dioxide 26.0, Anion Gap 6, BUN 18, Creatinine 0.66 L, Estim Creat Clear Calc 74.38, Est GFR (MDRD) Af Amer 150, Est GFR (MDRD) Non-Af 124, BUN/Creatinine Ratio 27.2 H, Glucose 87, Calcium 9.5 Physical Exam Narrative General: Alert, Oriented x3, Cooperative, No apparent distress, fatigued HEENT: Atraumatic, PERRLA, EOMI, Normocephalic Oral: Moist Mucosa, left upper lip bruised with a stitch Neck: Supple, No JVD Lungs: Diminished, Normal air movement, No rhonchi, No wheeze, No rales Cardiovascular: Regular rate, Regular Rhythm, Normal S1, Normal S2, No murmurs Abdomen: Soft, Non Tender, Non-Distended, No Hepato-splenomegaly Extremities: No edema, Capillary Refill Less than 3 Seconds Skin: No rashes, No breakdown Musculoskeletal: No Tenderness to Palpation of Joints or Extremities Neurological: No focal neurological deficits, Motor Exam 5/5 strength throughout, Sensory exam intact to light touch and pain Psych/Mental Status: Flat Assessment & Plan Assessment/Plan (1) Acute hyponatremia: (2) Adult failure to thrive: (3) Contusion of face: QUALIFIERS: Encounter type: initial encounter Qualified Code(s): S00.83XA - Contusion of other part of head, initial encounter (4) Frequent falls: PLAN: Plan #Generalized weakness -Likely multifactorial secondary to acute hyponatremia, poor p.o. intake, metastatic cancer -Patient received IV fluids and his hyponatremia has improved but patient continues to feel weak -Awaiting PT/OT evaluation -TSH within normal limits -Optimize nutrition -10/13: Weaker today than yesterday, query if this is due to sodium decreasing again versus his general debility and cancer with the addition of poor p.o. intake We work with PT, also sent prescription for hospital bed for patient in the event he is still able to go home upon discharge and not SNF 10/15/2023: Was evaluated by physical therapy was only able to ambulate 20 feet and was unable to do any stairs, likely due to just extended debility as his says that he has lacked motivation for any type of physical activity at home 10/16/2023: Will attempt to obtain pre-CERT for SNF placement 10/17/2023: Had a 25-minute advance care planning conversation with family about hospice. His sodium did drop again and had to start him on IV fluids. Did develop a leukocytosis, will just recheck tomorrow morning #Metastatic L adeno CA of lung -Patient receiving treatment every [address] Kiser, last treatment 1 week ago -Will need to continue following outpatient -Supportive care -10/13: reports she will have him follow-up with Dr. Kiser on an outpatient basis and wants to discuss his chemo further 10/15/2023: Had a 25-minute discussion advance care planning and prognosis with his cancer it does not appear that they would like to proceed with chemotherapy at this time given the fact that there has been very little response and his mental health has just declined since being diagnosed with metastatic stage IV lung cancer. Will trial him on a dose of Zoloft to see if this helps improve his mood will obviously monitor his sodium with this addition. 10/16/2023: Given likely depression surrounding his diagnosis continue with Zoloft #Acute hyponatremia -Patient's sodium was 137 on 10/04 and was found to be 129 on 10/11 -Seem that this may be due to poor p.o. intake and dehydration as this improved to 135 with just IV fluids -Decrease rate of IV fluids -Encourage p.o. intake -Dietary supplementation with Ensure -10/13: Down trended slightly to 133 patient feels weaker today, will resume IV fluids and will send studies for further workup 10/17/2023: Will restart IV fluids given his drop in sodium and his lack of p.o. intake #Possible irregular heart rhythm -On nurses exam she thought heart rate was irregular so EKG obtained which showed normal sinus rhythm -Upon further review of previous records patient has had multiple EKGs with PACs noted -Could always consider heart monitor on discharge however patient without any accelerated heart rate and he is already on Eliquis -Mag is within normal limits #Hx emphysema -prn inhalers -10/13: Denying any shortness of breath #Chronic macrocytic anemia -Appears to be at baseline, will check B12, vitamin D, folate, iron panel and monitor -10/13: TSH within normal limits, folate within normal limits, B12 and vitamin D pending #Hx DVT on eliquis -Patient remains on his home Eliquis -10/13: Continue home medication #Maxillar fracture -Supportive care/pain control #Chronic BPH with obstruction -Continue home medications DVT: Eliquis Charges/Coding Visit Charges Inpatient E&M: 63244 Subs Hosp L2
[2023-10-17 14:12] VITALS: BP 154/89; PULSE 72; RESP 16; TEMP 36.6; O2SAT 94
--- NOTE | 2023-10-17 17:03 | CASEMGMT ---
Social Work SW spoke w/, she states pt is not ready for hospice. She states family is, but pt is not. SW explained that no changes have been made w/the discharge plan, the plan continues to be for pt to go to [facility] skilled when ready. ANNY Ott
[2023-10-17 20:10] VITALS: BP 116/78; PULSE 85; RESP 18; TEMP 37; O2SAT 97
[2023-10-17] MEDS: diazePAM 5 MG Tablet PO (22:32)
[2023-10-17] MEDS: MELATONIN 10 MG TABLET PO (22:32)
[2023-10-18] VITALS (7 sets, daily range): BP systolic 122–170; BP diastolic 72–98; PULSE 62–80; RESP 16–18; TEMP 36.6–36.8; O2SAT 95–98
[2023-10-18] MEDS: traMADol 50 MG Tablet 100 MG PO ×3 (03:44→23:43)
[2023-10-18] MEDS: 0.9% Normal Saline (1000mL) 1,000 ML 100 ML IV ×3 (03:46→21:52)
[2023-10-18] MEDS: Acetaminophen 500 MG Tablet 1000 MG PO ×3 (05:21→21:49)
[2023-10-18 06:51] LABS: Absolute Lymphocyte Count 0.75 X10^3/uL (0.83-4.51); Absolute Neutrophil Count 16.2 X10^3/uL (2.0-7.7); Basophil# 0.15 X10^3/uL; Basophil% 0.8 % (0-1); Eosinophil# 0.02 X10^3/uL; Eosinophils% 0.1 % (0-5); Hematocrit 30.7 % (40-54); Hemoglobin 10.2 g/dL (13.0-16.5); Lymphocyte # 0.75 X10^3/ul (0.83-4.51); Lymphocyte % 3.9 % (19-41); Mean Corp Hgb Conc 33.2 g/dL (32-36); Mean Corpuscular Hgb 32.9 pg (27.0-32.0); Monocyte# 1.18 X10^3/uL; Monocyte% 6.2 % (0-10); NRBC Flagged by Analyzer 0 % (0-5); Neutrophil # 16.17 X10^3/uL (2.7-7.7); Neutrophil % 85.2 % (47-70); POSITIVE MORPHOLOGY YES; Platelet Count 137 K/mm3 (150-450); RBC Distribution Width CV 17.8 % (11.6-14.6); RBC Distribution Width SD 64.2 fl (35.1-43.9)
[2023-10-18 06:55] LABS: Differential Indicated SCAN CRITERIA MET
--- NOTE | 2023-10-18 08:10 | RAD_ITS ---
INDICATION: Cough and leukocytosis EXAMINATION/TECHNIQUE: X-RAY - XR Chest 2 Views COMPARISON: Prior study dated: 07/29/2023 FINDINGS: LINES/DEVICES: The Port-A-Cath in stable position. LUNGS: No consolidation, edema or effusion. No pneumothorax. MEDIASTINUM AND CARDIOVASCULAR STRUCTURES: Cardiac silhouette not enlarged. Central airways and mediastinal contour are unremarkable. BONES AND SOFT TISSUES: Unremarkable. RAD/Chest PA and Lateral IMPRESSION: No radiographic evidence of acute cardiopulmonary disease. Electronically Signed: Adarsh Soto MD at 9:15 EDT ,
[2023-10-18 08:20] LABS: Anion Gap 9 (5-15); BUN 15 mg/dL (7-18); BUN/Creat Ratio 25.3 RATIO (10-20); Calcium,Total 8.8 mg/dL (8.5-10.1); Chloride 96 mmol/L (98-107); Creatinine, Serum 0.59 mg/dL (0.70-1.30); EST Glomerular Filtration Rate 140 mL/min (>60); Est Glom Filt Rate - Afr Amer 170 mL/min (>60); Estimated Creatinine Clearance 74.38 ml/min; Glucose 78 mg/dL (74-106); Potassium 4.1 mmol/L (3.5-5.1); Sodium Level 130 mmol/L (136-145)
[2023-10-18] MEDS: APIXABAN 5 MG TABLET PO ×2 (08:38→21:50)
[2023-10-18] MEDS: Potassium Chloride Oral Tablet 20 MEQ PO (08:38)
[2023-10-18] MEDS: Tamsulosin HCl 0.4 MG Capsule PO (08:38)
[2023-10-18] MEDS: Sertraline 50 MG Tablet PO (08:39)
--- NOTE | 2023-10-18 09:53 | PN.HOSP_ITS ---
Subjective Subjective Feels okay but weak. Continues to have a cough, and his leukocytosis has climbed but he is afebrile Objective Data Objective Data Vital Signs: Vital Signs Temp Pulse Resp BP Pulse Ox O2 Del Method O2 Flow Rate 98.2 F 62 16 122/87 H 95 Room Air 2 10/18/23 03:52 10/18/23 03:53 10/18/23 03:52 10/18/23 03:52 10/18/23 03:52 10/18/23 03:53 10/16/23 21:32 Oxygen Flow Rate (L/min) 2 Oxygen Delivery Method Room Air Weight: 149 lb 14.629 oz Body Mass Index (BMI) 20.9 Intake & Output: Intake and Output for Last 24 Hours 10/17/23 10/18/23 10/19/23 03:59 03:59 03:59 Intake Total 300 / 300 1786.67 / 1786.67 Balance 300 / 300 1786.67 / 1786.67 Medical Nutrition Assessment Dietitian: Malnutrition Criteria Met Start: 10/13/23 13:19 Freq: Status: Active Protocol: Document 10/16/23 11:30 SLA (Rec: 10/16/23 11:31 SLA [email or web address]) Nutrition Malnutrition Evidence of Malnutrition Exists Yes Malnutrition (severe): Chronic Evidenced By Suboptimal Energy Intake ( Severe),Weight Loss (Severe), Physical Changes (Moderate) Clinical Problem Chronic Disease or Condition Related Malnutrition Etiology related to catabolic disease, metastatic lung cancer and inadequate energy intake Signs/Symptoms as evidenced by weight loss of 12.8% and <75% 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 Lab / Micro Data 10/18/23 05:56 10/18/23 05:56 Labs: Laboratory Results - last 24 hr 10/18/23 05:56: WBC 19.0 H, RBC 3.10 L, Hgb 10.2 L, Hct 30.7 L, MCV 99.0 H, MCH 32.9 H, MCHC 33.2, RDW Std Deviation 64.2 H, RDW Coeff of [place] 17.8 H, Plt Count 137 L, MPV 9.0, Immature Gran % (Auto) 3.800 H, Neut % (Auto) 85.2 H, Lymph % (Auto) 3.9 L, [place] % (Auto) 6.2, Eos % (Auto) 0.1, Baso % (Auto) 0.8, Absolute Neuts (auto) 16.2 H, Absolute Lymphs (auto) 0.75 L, Nucleated RBC % 0, Sodium 130 L, Potassium 4.1, Chloride 96 L, Carbon Dioxide 25.0, Anion Gap 9, BUN 15, C reatinine 0.59 L, Estim Creat Clear Calc 74.38, Est GFR (MDRD) Af Amer 170, Est GFR (MDRD) Non-Af 140, BUN/Creatinine Ratio 25.3 H, Glucose 78, Calcium 8.8 Radiography Diagnostic Testing: Radiology Impression Chest X-Ray 10/18/23 08:10 IMPRESSION: No radiographic evidence of acute cardiopulmonary disease. Electronically Signed: Adarsh Soto MD at 9:15 EDT , Physical Exam Narrative General: Alert, Oriented x3, Cooperative, No apparent distress, fatigued HEENT: Atraumatic, PERRLA, EOMI, Normocephalic Oral: Moist Mucosa, left upper lip bruised with a stitch Neck: Supple, No JVD Lungs: Diminished, Normal air movement, No rhonchi, No wheeze, No rales Cardiovascular: Regular rate, Regular Rhythm, Normal S1, Normal S2, No murmurs Abdomen: Soft, Non Tender, Non-Distended, No Hepato-splenomegaly Extremities: No edema, Capillary Refill Less than 3 Seconds Skin: No rashes, No breakdown Musculoskeletal: No Tenderness to Palpation of Joints or Extremities Neurological: No focal neurological deficits, Motor Exam 5/5 strength throughout, Sensory exam intact to light touch and pain Psych/Mental Status: Flat Assessment & Plan Assessment/Plan (1) Acute hyponatremia: (2) Adult failure to thrive: (3) Contusion of face: QUALIFIERS: Encounter type: initial encounter Qualified Code(s): S00.83XA - Contusion of other part of head, initial encounter (4) Frequent falls: PLAN: Plan #Generalized weakness with leukocytosis -Likely multifactorial secondary to acute hyponatremia, poor p.o. intake, metastatic cancer -Patient received IV fluids and his hyponatremia has improved but patient continues to feel weak -Awaiting PT/OT evaluation -TSH within normal limits -Optimize nutrition -10/13: Weaker today than yesterday, query if this is due to sodium decreasing again versus his general debility and cancer with the addition of poor p.o. intake We work with PT, also sent prescription for hospital bed for patient in the event he is still able to go home upon discharge and not SNF 10/15/2023: Was evaluated by physical therapy was only able to ambulate 20 feet and was unable to do any stairs, likely due to just extended debility as his says that he has lacked motivation for any type of physical activity at home 10/16/2023: Will attempt to obtain pre-CERT for SNF placement 10/17/2023: Had a 25-minute advance care planning conversation with family about hospice. His sodium did drop again and had to start him on IV fluids. Did develop a leukocytosis, will just recheck tomorrow morning 10/18/2023: Had a leukocytosis yesterday to 15. No signs of infection at this time so we elected to repeat CBC in the morning. Today with climbed to 19. No fevers no signs of cellulitis no abdominal pain he does have a slight cough but chest x-ray is unremarkable with no signs of consolidation. UA and respiratory panel are pending. They have elected not to proceed with hospice and would like to go to SNF with continued outpatient possible chemotherapy and treatment. #Metastatic L adeno CA of lung -Patient receiving treatment every [address] Kiser, last treatment 1 week ago -Will need to continue following outpatient -Supportive care -10/13: reports she will have him follow-up with Dr. Kiser on an outpatient basis and wants to discuss his chemo further 10/15/2023: Had a 25-minute discussion advance care planning and prognosis with his cancer it does not appear that they would like to proceed with chemotherapy at this time given the fact that there has been very little response and his mental health has just declined since being diagnosed with metastatic stage IV lung cancer. Will trial him on a dose of Zoloft to see if this helps improve his mood will obviously monitor his sodium with this addition. 10/16/2023: Given likely depression surrounding his diagnosis continue with Zoloft #Acute hyponatremia -Patient's sodium was 137 on 10/04 and was found to be 129 on 10/11 -Seem that this may be due to poor p.o. intake and dehydration as this improved to 135 with just IV fluids -Decrease rate of IV fluids -Encourage p.o. intake -Dietary supplementation with Ensure -10/13: Down trended slightly to 133 patient feels weaker today, will resume IV fluids and will send studies for further workup 10/17/2023: Will restart IV fluids given his drop in sodium and his lack of p.o. intake #Possible irregular heart rhythm -On nurses exam she thought heart rate was irregular so EKG obtained which showed normal sinus rhythm -Upon further review of previous records patient has had multiple EKGs with PACs noted -Could always consider heart monitor on discharge however patient without any accelerated heart rate and he is already on Eliquis -Mag is within normal limits #Hx emphysema -prn inhalers -10/13: Denying any shortness of breath #Chronic macrocytic anemia -Appears to be at baseline, will check B12, vitamin D, folate, iron panel and monitor -10/13: TSH within normal limits, folate within normal limits, B12 and vitamin D pending #Hx DVT on eliquis -Patient remains on his home Eliquis -10/13: Continue home medication #Maxillar fracture -Supportive care/pain control #Chronic BPH with obstruction -Continue home medications DVT: Eliquis Charges/Coding Visit Charges Inpatient E&M: 34456 Subs Hosp L2
[2023-10-18] MEDS: Acetaminophen 325 MG Tablet 650 MG PO (10:14)
[2023-10-18] MEDS: Folic Acid 1 MG Tablet PO (10:16)
--- NOTE | 2023-10-18 11:40 | CASEMGMT ---
Social Work SW plans to go to [facility] when medically ready. SW spoke with physician and pt is not ready for dc today. DC financial assistant notified and to update facility. Precert is good through 10/19. If pt does not discharge by Monday at midnight, a new precert will be needed. PASRR completed in [facility]. Plan: [facility], when medically ready GENOVEVA Lynn
[2023-10-18 18:12] LABS: Mucous, Urine 0 SEEN /hpf (<or=2+); Squamous Epithelial Cells - UA 0 SEEN /hpf (0-5)
[2023-10-18 18:16] LABS: Color, Urine Yellow (Yellow); Glucose, Dipstick Normal (Normal); Ketone-Dipstick 15 mg/dl (Negative); Leukocyte Esterase-Dipstick Negative /ul (Negative); Nitrite-Dipstick Positive (Negative); Occult Blood-Urine Negative /ul (Negative); Protein-Dipstick Negative (Negative); Specific Gravity, Urine 1.015 (1.002-1.030); Urine Bilirubin Dipstick Negative (Negative); Urine Clarity Clear (Clear); Urine Urobilinogen 1 mg/dl (Normal); Urine pH 6.5 (5.0 - 8.0)
[2023-10-18 18:23] LABS: Bacteria 1+ /hpf (None Seen); Red Blood Cells-Urine 0 SEEN /hpf (0-5); White Blood Cells 0-5 SEEN /hpf (0-5)
[2023-10-18] MEDS: diazePAM 5 MG Tablet PO (21:49)
[2023-10-18] MEDS: MELATONIN 10 MG TABLET PO (21:49)
[2023-10-19] VITALS (7 sets, daily range): BP systolic 131–168; BP diastolic 68–96; PULSE 75–85; RESP 16–20; TEMP 36.3–36.7; O2SAT 95–97
[2023-10-19] MEDS: Acetaminophen 500 MG Tablet 1000 MG PO ×3 (05:55→20:03)
[2023-10-19] MEDS: 0.9% Normal Saline (1000mL) 1,000 ML 100 ML IV ×2 (06:45→16:51)
[2023-10-19] MEDS: traMADol 50 MG Tablet 100 MG PO ×2 (08:09→15:42)
[2023-10-19] MEDS: Folic Acid 1 MG Tablet PO (08:09)
[2023-10-19] MEDS: Tamsulosin HCl 0.4 MG Capsule PO (08:10)
[2023-10-19] MEDS: Sertraline 50 MG Tablet PO (08:10)
[2023-10-19] MEDS: Potassium Chloride Oral Tablet 20 MEQ PO (08:10)
[2023-10-19] MEDS: APIXABAN 5 MG TABLET PO ×2 (08:11→20:03)
--- NOTE | 2023-10-19 08:48 | NURSING ---
This RN received a call from lab stating that the lab staff were unable to get blood from pt for ordered morning lab draws and that two people had tried. This RN will consult with Dr. Felder and [facility].
[2023-10-19] MEDS: Magnesium Citrate 300 ML 150 ML PO ×2 (10:12→20:04)
[2023-10-19 10:59] LABS: Absolute Lymphocyte Count 0.62 X10^3/uL (0.83-4.51); Absolute Neutrophil Count 17.8 X10^3/uL (2.0-7.7); Basophil# 0.15 X10^3/uL; Basophil% 0.7 % (0-1); Eosinophil# 0.02 X10^3/uL; Eosinophils% 0.1 % (0-5); Hemoglobin 10.7 g/dL (13.0-16.5); Lymphocyte # 0.62 X10^3/ul (0.83-4.51); Lymphocyte % 3.1 % (19-41); Mean Corp Hgb Conc 33.4 g/dL (32-36); Mean Corpuscular Hgb 32.6 pg (27.0-32.0); Mean Corpuscular Volume 97.6 fL (80-94); Monocyte# 0.86 X10^3/uL; Monocyte% 4.3 % (0-10); NRBC Flagged by Analyzer 0 % (0-5); Neutrophil # 17.75 X10^3/uL (2.7-7.7); Neutrophil % 88.8 % (47-70); Platelet Count 148 K/mm3 (150-450); RBC Distribution Width SD 64.1 fl (35.1-43.9); Red Blood Count 3.28 M/mm3 (4.6-6.2)
[2023-10-19 11:13] LABS: Anion Gap 6 (5-15); BUN 12 mg/dL (7-18); BUN/Creat Ratio 23.6 RATIO (10-20); Chloride 96 mmol/L (98-107); Creatinine, Serum 0.51 mg/dL (0.70-1.30); EST Glomerular Filtration Rate 168 mL/min (>60); Est Glom Filt Rate - Afr Amer 203 mL/min (>60); Estimated Creatinine Clearance 74.38 ml/min; Glucose 89 mg/dL (74-106); Potassium 3.9 mmol/L (3.5-5.1); Sodium Level 130 mmol/L (136-145)
--- NOTE | 2023-10-19 14:47 | PN.HOSP_ITS ---
Subjective Subjective Remains the same Objective Data Objective Data Vital Signs: Vital Signs Temp Pulse Resp BP Pulse Ox O2 Del Method O2 Flow Rate 97.7 F L 80 18 162/83 H 96 Room Air 2 10/19/23 14:05 10/19/23 14:10 10/19/23 14:05 10/19/23 14:05 10/19/23 14:05 10/19/23 14:10 10/16/23 21:32 Oxygen Flow Rate (L/min) 2 Oxygen Delivery Method Room Air Weight: 149 lb 14.629 oz Body Mass Index (BMI) 20.9 Intake & Output: Intake and Output for Last 24 Hours 10/18/23 10/19/23 10/20/23 03:59 03:59 03:59 Intake Total 1786.67 / 1786.67 1800 / 1800 888.33 / 888.33 Output Total 400 / 400 Balance 1786.67 / 1786.67 1400 / 1400 888.33 / 888.33 Medical Nutrition Assessment Dietitian: Malnutrition Criteria Met Start: 10/13/23 13:19 Freq: Status: Active Protocol: Document 10/16/23 11:30 SLA (Rec: 10/16/23 11:31 SLA [email or web address]) Nutrition Malnutrition Evidence of Malnutrition Exists Yes Malnutrition (severe): Chronic Evidenced By Suboptimal Energy Intake ( Severe),Weight Loss (Severe), Physical Changes (Moderate) Clinical Problem Chronic Disease or Condition Related Malnutrition Etiology related to catabolic disease, metastatic lung cancer and inadequate energy intake Signs/Symptoms as evidenced by weight loss of 12.8% and <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 Lab / Micro Data 10/19/23 10:10 10/19/23 10:10 Labs: Laboratory Results - last 24 hr 10/18/23 17:43: Urine Color Yellow, Urine Clarity Clear, Urine pH 6.5, Ur Specific [place] 1.015, Urine Protein Negative, Urine Glucose (UA) Normal, Urine Ketones 15 H, Urine Occult Blood Negative, Urine Nitrite Positive H, Urine Bilirubin Negative, Urine Urobilinogen 1 H, Ur Leukocyte Esterase Negative, Urine RBC 0 SEEN, Urine WBC 0-5 SEEN, Ur Squamous Epith Cells 0 SEEN, Urine Bacteria 1+, Urine Mucus 0 SEEN 10/19/23 10:10: WBC 20.0 H, RBC 3.28 L, Hgb 10.7 L, Hct 32.0 L, MCV 97.6 H, MCH 32.6 H, MCHC 33.4, RDW Std Deviation 64.1 H, RDW Coeff of [place] 18.0 H, Plt Count 148 L, MPV 9.0, Immature Gran % (Auto) 3.000 H, Neut % (Auto) 88.8 H, Lymph % (Auto) 3.1 L, [place] % (Auto) 4.3, Eos % (Auto) 0.1, Baso % (Auto) 0.7, Absolute Neuts (auto) 17.8 H, Absolute Lymphs (auto) 0.62 L, Nucleated RBC % 0, Sodium 130 L, Potassium 3.9, Chloride 96 L, Carbon Dioxide 28.0, Anion Gap 6, BUN 12, C reatinine 0.51 L, Estim Creat Clear Calc 74.38, Est GFR (MDRD) Af Amer 203, Est GFR (MDRD) Non-Af 168, BUN/Creatinine Ratio 23.6 H, Glucose 89, Calcium 9.0 Micro: Microbiology 10/18/23 11:48 Mucosa - Nasopharyngeal Respiratory Panel (PCR) - Final Physical Exam Narrative General: Alert, Oriented x3, Cooperative, No apparent distress, fatigued HEENT: Atraumatic, PERRLA, EOMI, Normocephalic Oral: Moist Mucosa, left upper lip bruised with a stitch Neck: Supple, No JVD Lungs: Diminished, Normal air movement, No rhonchi, No wheeze, No rales Cardiovascular: Regular rate, Regular Rhythm, Normal S1, Normal S2, No murmurs Abdomen: Soft, Non Tender, Non-Distended, No Hepato-splenomegaly Extremities: No edema, Capillary Refill Less than 3 Seconds Skin: No rashes, No breakdown Musculoskeletal: No Tenderness to Palpation of Joints or Extremities Neurological: No focal neurological deficits, Motor Exam 5/5 strength throughout, Sensory exam intact to light touch and pain Psych/Mental Status: Flat Assessment & Plan Assessment/Plan (1) Acute hyponatremia: (2) Adult failure to thrive: (3) Contusion of face: QUALIFIERS: Encounter type: initial encounter Qualified Code(s): S00.83XA - Contusion of other part of head, initial encounter (4) Frequent falls: PLAN: Plan #Generalized weakness with leukocytosis -Likely multifactorial secondary to acute hyponatremia, poor p.o. intake, metastatic cancer -Patient received IV fluids and his hyponatremia has improved but patient continues to feel weak -Awaiting PT/OT evaluation -TSH within normal limits -Optimize nutrition -10/13: Weaker today than yesterday, query if this is due to sodium decreasing again versus his general debility and cancer with the addition of poor p.o. intake We work with PT, also sent prescription for hospital bed for patient in the event he is still able to go home upon discharge and not SNF 10/15/2023: Was evaluated by physical therapy was only able to ambulate 20 feet and was unable to do any stairs, likely due to just extended debility as his says that he has lacked motivation for any type of physical activity at home 10/16/2023: Will attempt to obtain pre-CERT for SNF placement 10/17/2023: Had a 25-minute advance care planning conversation with family about hospice. His sodium did drop again and had to start him on IV fluids. Did develop a leukocytosis, will just recheck tomorrow morning 10/18/2023: Had a leukocytosis yesterday to 15. No signs of infection at this time so we elected to repeat CBC in the morning. Today with climbed to 19. No fevers no signs of cellulitis no abdominal pain he does have a slight cough but chest x-ray is unremarkable with no signs of consolidation. UA and respiratory panel are pending. They have elected not to proceed with hospice and would like to go to SNF with continued outpatient possible chemotherapy and treatment. 10/19/2023: Leukocytosis continued to climb urine was not definitive will obtain urine culture and blood culture today respiratory panel is negative #Metastatic L adeno CA of lung -Patient receiving treatment every [address] Kiser, last treatment 1 week ago -Will need to continue following outpatient -Supportive care -10/13: reports she will have him follow-up with Dr. Kiser on an outpatient basis and wants to discuss his chemo further 10/15/2023: Had a 25-minute discussion advance care planning and prognosis with his cancer it does not appear that they would like to proceed with chemotherapy at this time given the fact that there has been very little response and his mental health has just declined since being diagnosed with metastatic stage IV lung cancer. Will trial him on a dose of Zoloft to see if this helps improve his mood will obviously monitor his sodium with this addition. 10/16/2023: Given likely depression surrounding his diagnosis continue with Zoloft #Acute hyponatremia -Patient's sodium was 137 on 10/04 and was found to be 129 on 10/11 -Seem that this may be due to poor p.o. intake and dehydration as this improved to 135 with just IV fluids -Decrease rate of IV fluids -Encourage p.o. intake -Dietary supplementation with Ensure -10/13: Down trended slightly to 133 patient feels weaker today, will resume IV fluids and will send studies for further workup 10/17/2023: Will restart IV fluids given his drop in sodium and his lack of p.o. intake #Possible irregular heart rhythm -On nurses exam she thought heart rate was irregular so EKG obtained which showed normal sinus rhythm -Upon further review of previous records patient has had multiple EKGs with PACs noted -Could always consider heart monitor on discharge however patient without any accelerated heart rate and he is already on Eliquis -Mag is within normal limits #Hx emphysema -prn inhalers -10/13: Denying any shortness of breath #Chronic macrocytic anemia -Appears to be at baseline, will check B12, vitamin D, folate, iron panel and monitor -10/13: TSH within normal limits, folate within normal limits, B12 and vitamin D pending #Hx DVT on eliquis -Patient remains on his home Eliquis -10/13: Continue home medication #Maxillar fracture -Supportive care/pain control #Chronic BPH with obstruction -Continue home medications DVT: Eliquis Charges/Coding Visit Charges Inpatient E&M: 52045 Subs Hosp L2
[2023-10-19] MEDS: levoFLOXacin 750 MG Tablet PO (15:38)
[2023-10-19] MEDS: Senna/Docusate Sodium 1 Tablet PO (15:42)
[2023-10-20 02:00] VITALS: BP 161/84; PULSE 72; RESP 14; TEMP 36.6; O2SAT 94
[2023-10-20] MEDS: 0.9% Normal Saline (1000mL) 1,000 ML 100 ML IV (02:20)
[2023-10-20] MEDS: Ondansetron 4 MG/2 ML Vial IV (04:51)
[2023-10-20] MEDS: Acetaminophen 500 MG Tablet 1000 MG PO (05:05)
[2023-10-20] MEDS: levoFLOXacin 750 MG Tablet PO (05:05)
[2023-10-20 06:22] LABS: Absolute Lymphocyte Count 0.71 X10^3/uL (0.83-4.51); Absolute Neutrophil Count 17.9 X10^3/uL (2.0-7.7); Basophil# 0.18 X10^3/uL; Basophil% 0.9 % (0-1); Eosinophil# 0.02 X10^3/uL; Eosinophils% 0.1 % (0-5); Hematocrit 32.2 % (40-54); Hemoglobin 10.8 g/dL (13.0-16.5); Lymphocyte # 0.71 X10^3/ul (0.83-4.51); Lymphocyte % 3.5 % (19-41); Mean Corp Hgb Conc 33.5 g/dL (32-36); Mean Corpuscular Hgb 32.6 pg (27.0-32.0); Mean Corpuscular Volume 97.3 fL (80-94); Mean Platelet Vol. 9.2 fl (6.2-12.0); Monocyte# 0.98 X10^3/uL; Monocyte% 4.8 % (0-10); NRBC Flagged by Analyzer 0 % (0-5); Neutrophil # 17.86 X10^3/uL (2.7-7.7); Neutrophil % 88.3 % (47-70); Platelet Count 143 K/mm3 (150-450); RBC Distribution Width CV 18.1 % (11.6-14.6); RBC Distribution Width SD 63.7 fl (35.1-43.9); Red Blood Count 3.31 M/mm3 (4.6-6.2); White Blood Count 20.2 K/mm3 (4.4-11.0)
--- NOTE | 2023-10-20 06:59 | NURSING ---
this RN notified that pt port was be leaking. This RN paused normal saline at 0445. Attempted to flush and re-dress port. Port was still leaking, this RN de-accessed port around 0615. 2 small blisters and redness were noted around port site. imaging engineer and catastrophe claims supervisor notified. This RN and imaging engineer attempted twice and both were unsuccessful with peripheral IV insertion.
[2023-10-20 08:28] VITALS: BP 140/84; PULSE 100; RESP 16; TEMP 36.6; O2SAT 97
[2023-10-20 09:35] VITALS: O2SAT 90
--- NOTE | 2023-10-20 10:15 | PCM.TXEXTCAR ---
Diet Diet Order/Speech Therapy: 10/12/23 20:03 Diet: Regular - General Food consistency:: Regular Liquid Consistency:: Regular/Thin Type of Dietary Supplement:: Ensure Plus High Protein Diet Comments: yanni Ensure milkshake @ dinner Routine Orders/Code Status Routine Lab Work: CBC and BMP Code Status: DNRCC-A Wound(s) RIGHT ELBOW: Wound Type: Abrasion UPPER LIP: Wound Type: Abrasion Therapies Physical Therapy: Eval and Treat Occupational Therapy: Eval and Treat Problem/Diagnosis (1) Acute hyponatremia: Status: Acute Code(s): E87.1 - Hypo-osmolality and hyponatremia (2) Adult failure to thrive: Status: Acute Code(s): R62.7 - Adult failure to thrive (3) Contusion of face: Status: Acute Code(s): S00.83XA - Contusion of other part of head, initial encounter (4) Frequent falls: Status: Acute Code(s): R29.6 - Repeated falls Plan #Generalized weakness with leukocytosis -Likely multifactorial secondary to acute hyponatremia, poor p.o. intake, metastatic cancer -Patient received IV fluids and his hyponatremia has improved but patient continues to feel weak -Awaiting PT/OT evaluation -TSH within normal limits -Optimize nutrition -10/13: Weaker today than yesterday, query if this is due to sodium decreasing again versus his general debility and cancer with the addition of poor p.o. intake We work with PT, also sent prescription for hospital bed for patient in the event he is still able to go home upon discharge and not SNF 10/15/2023: Was evaluated by physical therapy was only able to ambulate 20 feet and was unable to do any stairs, likely due to just extended debility as his says that he has lacked motivation for any type of physical activity at home 10/16/2023: Will attempt to obtain pre-CERT for SNF placement 10/17/2023: Had a 25-minute advance care planning conversation with family about hospice. His sodium did drop again and had to start him on IV fluids. Did develop a leukocytosis, will just recheck tomorrow morning 10/18/2023: Had a leukocytosis yesterday to 15. No signs of infection at this time so we elected to repeat CBC in the morning. Today with climbed to 19. No fevers no signs of cellulitis no abdominal pain he does have a slight cough but chest x-ray is unremarkable with no signs of consolidation. UA and respiratory panel are pending. They have elected not to proceed with hospice and would like to go to SNF with continued outpatient possible chemotherapy and treatment. 10/19/2023: Leukocytosis continued to climb urine was not definitive will obtain urine culture and blood culture today respiratory panel is negative #Metastatic L adeno CA of lung -Patient receiving treatment every [address] Kiser, last treatment 1 week ago -Will need to continue following outpatient -Supportive care -10/13: reports she will have him follow-up with Dr. Kiser on an outpatient basis and wants to discuss his chemo further 10/15/2023: Had a 25-minute discussion advance care planning and prognosis with his cancer it does not appear that they would like to proceed with chemotherapy at this time given the fact that there has been very little response and his mental health has just declined since being diagnosed with metastatic stage IV lung cancer. Will trial him on a dose of Zoloft to see if this helps improve his mood will obviously monitor his sodium with this addition. 10/16/2023: Given likely depression surrounding his diagnosis continue with Zoloft #Acute hyponatremia -Patient's sodium was 137 on 10/04 and was found to be 129 on 10/11 -Seem that this may be due to poor p.o. intake and dehydration as this improved to 135 with just IV fluids -Decrease rate of IV fluids -Encourage p.o. intake -Dietary supplementation with Ensure -10/13: Down trended slightly to 133 patient feels weaker today, will resume IV fluids and will send studies for further workup 10/17/2023: Will restart IV fluids given his drop in sodium and his lack of p.o. intake #Possible irregular heart rhythm -On nurses exam she thought heart rate was irregular so EKG obtained which showed normal sinus rhythm -Upon further review of previous records patient has had multiple EKGs with PACs noted -Could always consider heart monitor on discharge however patient without any accelerated heart rate and he is already on Eliquis -Mag is within normal limits #Hx emphysema -prn inhalers -10/13: Denying any shortness of breath #Chronic macrocytic anemia -Appears to be at baseline, will check B12, vitamin D, folate, iron panel and monitor -10/13: TSH within normal limits, folate within normal limits, B12 and vitamin D pending #Hx DVT on eliquis -Patient remains on his home Eliquis -10/13: Continue home medication #Maxillar fracture -Supportive care/pain control #Chronic BPH with obstruction -Continue home medications DVT: Eliquis Allergies/Procedures Done in Hospital Allergies Environmental Allergies: Uncoded (hay) Allergy (Verified 10/12/23 13:03) sneezing animal dander Adverse Reaction (Mild, Verified 10/12/23 13:03) Other FARM ANIMALS oak Adverse Reaction (Mild, Verified 10/12/23 13:03) Other moxifloxacin HCl (From Avelox) Adverse Reaction (Verified 10/12/23 13:03) Nausea prochlorperazine (From Compazine) Adverse Reaction (Verified 10/12/23 13:03) Other tardyskanesia prochlorperazine edisylate (From Compazine) Adverse Reaction (Verified 10/12/23 13:03) Other tardyskanesia prochlorperazine maleate (From Compazine) Adverse Reaction (Verified 10/12/23 13:03) Other tardyskanesia Procedures: None Type of Care/Length of Stay Estimated LOS: Convalescent Care Less Than 30 days Type of Care Needed: Skilled Rehab Potential: Fair Prognosis: Fair Additional Orders/Day of Discharge Additional Orders: CT, chest, abdomen, pelvis At [facility] Monday10/23/23 @ 1330, arrive at 1315 Day of Discharge: 10/20/23 Dietary and Speech Recommendations Dietitian Recommendations/Changes: Continue Regular diet to optimize oral intakes. Continue chocolate ensure plus high protein milkshake at dinner to promote adequate energy and protein if consumed Discharge Plan Admission Admit Date/Time: 10/14/23 13:45 Primary Reason for Your Visit: Generalized weakness Attending Provider: Adria Felder Primary Care Provider: Jamshid Kuhn Consulting Providers: Ke Gonsalez; Ambar Odom Instructions Patient Instructions: ED Fall Prevention Additional Instructions / Restrictions: DISCHARGE INSTRUCTIONS PLEASE READ *Please take this with you to your next doctors appointment* -Would recommend lab work (BMP) to check your sodium levels in 2 to 3 days through your primary care physician's office. Please call their office upon discharge to obtain order for lab work. -Please call your primary care provider's office upon discharge to schedule a hospital follow up within 1 week. -For any concerning signs or symptoms please call 911 or proceed to the nearest emergency department Discharge Orders/Prescriptions Prescriptions: New sertraline 50 mg Tablet 50 mg PO DAILY Qty: 0 0RF levofloxacin 750 mg Tablet 750 mg PO DAILY@0600 7 Days Qty: 0 0RF sodium chloride 1,000 mg tablet,soluble 1,000 mg PO DAILY Qty: 1 0RF Continued tamsulosin 0.4 mg capsule 0.4 mg PO DAILY lidocaine-prilocaine 2.5-2.5 % cream 1 applic topical ONCE PRN (Reason: port access) 30 Days Qty: 30 2RF folic acid 1 mg tablet 1 mg PO DAILY Qty: 90 1RF potassium chloride 20 mEq tablet,ER particles/crystals 20 meq PO DAILY Qty: 3 0RF Senna Plus 8.6-50 mg capsule 1 tab-cap PO BID PRN (Reason: constipation) dexamethasone 4 mg tablet 4 mg PO DAILY Qty: 36 0RF Patient Comments: PT ENDED CHEMO CYCLE ON 10/05/23 Rx Instructions: 8 mg orally daily ONLY days 2-4 of chemotherapy cycle Combivent Respimat 20-100 mcg/actuation mist 1 puff INHALATION Q6H PRN (Reason: WHEEZING) tramadol 50 mg tablet 25 mg PO QHS magnesium citrate Solution 150 ml PO BID Qty: 296 0RF diazepam [Valium] 5 mg tablet 5 mg PO QHS PRN (Reason: muscle spasm) Qty: 12 0RF fluticasone propionate 50 mcg/actuation spray,suspension 2 spray INTRANASAL DAILY Qty: 16 5RF apixaban 5 mg tablet 5 mg PO BID Qty: 60 2RF ondansetron 8 mg tablet,disintegrating 8 mg PO Q8H PRN (Reason: nausea and vomiting) Qty: 30 2RF Referrals / Follow Up: Jamshid Kuhn DO [Primary Care Provider] - Disposition Disposition (needs filled in before D/C Order can be placed): [facility] (3) Contusion of face Qualifiers: Encounter type: initial encounter Qualified Code(s): S00.83XA - Contusion of other part of head, initial encounter
--- NOTE | 2023-10-20 11:45 | CASEMGMT ---
Social Work Per [facility], pt is ready for discharge to [facility] today. PASRR has been completed in [facility]. DC distribution center assistant updated and will complete discharge. Disposition: [facility], skilled level of care GENOVEVA Lynn
--- NOTE | 2023-10-20 12:12 | CASEMGMT ---
Discharge Planning Discharge orders, signed med list, and transport time sent to [facility] via [facility]. Physicians will transport patient by cot at 12:30p. Nursing, SW, patient, and his daughter (Radha) updated. VM left for patients . ] Cherie Castle DC Planning Asst.
--- NOTE | 2023-10-20 13:44 | PCM.DC.SUM ---
Providers Date of Admission: 10/14/23 Primary Care Physician: Dr. Jamshid Kuhn DO Reason For Visit: FALL Diagnosis Discharge Diagnosis (1) Acute hyponatremia: Status: Acute Code(s): E87.1 - Hypo-osmolality and hyponatremia (2) Adult failure to thrive: Status: Acute Code(s): R62.7 - Adult failure to thrive (3) Contusion of face: Status: Acute Code(s): S00.83XA - Contusion of other part of head, initial encounter Qualifiers: Encounter type: initial encounter Qualified Code(s): S00.83XA - Contusion of other part of head, initial encounter (4) Frequent falls: Status: Acute Code(s): R29.6 - Repeated falls Medications at Discharge Home Medications tamsulosin 0.4 mg capsule 0.4 mg PO DAILY PROSTATE 04/02/19 fluticasone propionate 50 mcg/actuation nasal spray,suspension 2 spray intranasal DAILY NASAL CONGESTION #16 grams 04/20/22 ipratropium 20 mcg-albuterol 100 mcg/actuation mist for inhalation (Combivent Respimat) 1 puff inhalation Q6H PRN WHEEZING 04/24/23 folic acid 1 mg tablet 1 mg PO DAILY #90 tabs 07/17/23 lidocaine-prilocaine 2.5 %-2.5 % topical cream 1 applic topical ONCE PRN port access 30 days #30 grams 07/17/23 potassium chloride 20 mEq tablet,extended release(part/cryst) 20 meq PO DAILY #3 tabs 08/07/23 apixaban 5 mg tablet 5 mg PO BID #60 tabs 08/22/23 ondansetron 8 mg disintegrating tablet 8 mg PO Q8H PRN nausea and vomiting #30 tabs 08/22/23 magnesium citrate 150 ml PO BID #296 mL 08/27/23 sennosides 8.6 mg-docusate sodium 50 mg capsule (Senna Plus) 1 tab-cap PO BID PRN constipation 09/06/23 diazepam 5 mg tablet (Valium) 5 mg PO QHS PRN muscle spasm #12 tabs 09/08/23 dexamethasone 4 mg tablet 4 mg PO DAILY #36 tabs 09/14/23 tramadol 50 mg tablet 25 mg PO QHS NECK PAIN 10/12/23 levofloxacin 750 mg tablet 750 mg PO DAILY@0600 7 days #0 tabs 10/20/23 sertraline 50 mg tablet 50 mg PO DAILY #0 tabs 10/20/23 sodium chloride 1,000 mg soluble tablet 1,000 mg PO DAILY #1 TAB 10/20/23 Hospital Course Operations None Procedures None Summary of Care Provided Minutes Spent on Discharge: 39 Hospital Course: Per HPI: CINDY VIDES, is a 78 M with a significant history of 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 Patient and family attributes patient fall to weakness. Of note patient has been so weak that he is unable to get up from bed. He is unable to move even for short distances secondary to weakness. Patient's actually had a plan calling the [facility] for at home therapists to work with patient. Aside from this fall, 3 days before presentation patient had 2 falls on the same day. Associated with his symptoms as anorexia. Of note patient has no appetite to eat. With his current fall he fell face forward and had an escalation of his upper lip to the left side and also broke an incisor. Patient and family is hoping to get patient therapy inpatient and with eventual rehabilitation at the care home. Hospital Course: #Generalized weakness with leukocytosis -Likely multifactorial secondary to acute hyponatremia, poor p.o. intake, metastatic cancer -Patient received IV fluids and his hyponatremia has improved but patient continues to feel weak -Awaiting PT/OT evaluation -TSH within normal limits -Optimize nutrition -10/13: Weaker today than yesterday, query if this is due to sodium decreasing again versus his general debility and cancer with the addition of poor p.o. intake We work with PT, also sent prescription for hospital bed for patient in the event he is still able to go home upon discharge and not SNF 10/15/2023: Was evaluated by physical therapy was only able to ambulate 20 feet and was unable to do any stairs, likely due to just extended debility as his says that he has lacked motivation for any type of physical activity at home 10/16/2023: Will attempt to obtain pre-CERT for SNF placement 10/17/2023: Had a 25-minute advance care planning conversation with family about hospice. His sodium did drop again and had to start him on IV fluids. Did develop a leukocytosis, will just recheck tomorrow morning 10/18/2023: Had a leukocytosis yesterday to 15. No signs of infection at this time so we elected to repeat CBC in the morning. Today with climbed to 19. No fevers no signs of cellulitis no abdominal pain he does have a slight cough but chest x-ray is unremarkable with no signs of consolidation. UA and respiratory panel are pending. They have elected not to proceed with hospice and would like to go to SNF with continued outpatient possible chemotherapy and treatment. 10/19/2023: Leukocytosis continued to climb urine was not definitive will obtain urine culture and blood culture today respiratory panel is negative 10/20/2023: Discussed with family the plan for discharge today despite no good answer to his leukocytosis at the moment. Urine and blood cultures are pending. He was started on Levaquin at 750 mg p.o. daily yesterday. I discussed with the family that given the current state of his mental health surrounding his stage IV lung cancer diagnosis that it may be beneficial to discharge to SNF today for physical therapy and change in scenery to see if this helps with motivation. The expressed understanding of the risk and benefits of discharge and would like to proceed today. Will continue with Levaquin for 7 more days. #Metastatic L adeno CA of lung -Patient receiving treatment every [address] Kiser, last treatment 1 week ago -Will need to continue following outpatient -Supportive care -10/13: reports she will have him follow-up with Dr. Kiser on an outpatient basis and wants to discuss his chemo further 10/15/2023: Had a 25-minute discussion advance care planning and prognosis with his cancer it does not appear that they would like to proceed with chemotherapy at this time given the fact that there has been very little response and his mental health has just declined since being diagnosed with metastatic stage IV lung cancer. Will trial him on a dose of Zoloft to see if this helps improve his mood will obviously monitor his sodium with this addition. 10/16/2023: Given likely depression surrounding his diagnosis continue with Zoloft 10/20/2023: Continue with Zoloft and he has a planned outpatient CT scan to check cancer progress with chemotherapy #Acute hyponatremia -Patient's sodium was 137 on 10/04 and was found to be 129 on 10/11 -Seem that this may be due to poor p.o. intake and dehydration as this improved to 135 with just IV fluids -Decrease rate of IV fluids -Encourage p.o. intake -Dietary supplementation with Ensure -10/13: Down trended slightly to 133 patient feels weaker today, will resume IV fluids and will send studies for further workup 10/17/2023: Will restart IV fluids given his drop in sodium and his lack of p.o. intake 10/20/2023: Will continue with salt tabs daily #Possible irregular heart rhythm -On nurses exam she thought heart rate was irregular so EKG obtained which showed normal sinus rhythm -Upon further review of previous records patient has had multiple EKGs with PACs noted -Could always consider heart monitor on discharge however patient without any accelerated heart rate and he is already on Eliquis -Mag is within normal limits #Hx emphysema -prn inhalers -10/13: Denying any shortness of breath #Chronic macrocytic anemia -Appears to be at baseline, will check B12, vitamin D, folate, iron panel and monitor -10/13: TSH within normal limits, folate within normal limits, B12 and vitamin D pending #Hx DVT on eliquis -Patient remains on his home Eliquis -10/13: Continue home medication #Maxillar fracture -Supportive care/pain control #Chronic BPH with obstruction -Continue home medications Physical Exam Narrative General: Alert, Oriented x3, Cooperative, No apparent distress, fatigued HEENT: Atraumatic, PERRLA, EOMI, Normocephalic Oral: Moist Mucosa, left upper lip bruised with a stitch Neck: Supple, No JVD Lungs: Diminished, Normal air movement, No rhonchi, No wheeze, No rales Cardiovascular: Regular rate, Regular Rhythm, Normal S1, Normal S2, No murmurs Abdomen: Soft, Non Tender, Non-Distended, No Hepato-splenomegaly Extremities: No edema, Capillary Refill Less than 3 Seconds Skin: No rashes, No breakdown Musculoskeletal: No Tenderness to Palpation of Joints or Extremities Neurological: No focal neurological deficits, Motor Exam 5/5 strength throughout, Sensory exam intact to light touch and pain Psych/Mental Status: Flat Weight / BMI Weight Weight: 149 lb 14.629 oz Body Mass Index (BMI) 20.9 ABG / Lab / Microbiology Data 10/20/23 04:20 10/19/23 10:10 Laboratory: Laboratory Results - last 24 hr 10/20/23 04:20: WBC 20.2 H, RBC 3.31 L, Hgb 10.8 L, Hct 32.2 L, MCV 97.3 H, MCH 32.6 H, MCHC 33.5, RDW Std Deviation 63.7 H, RDW Coeff of Linwood 18.1 H, Plt Count 143 L, MPV 9.2, Immature Gran % (Auto) 2.400 H, Neut % (Auto) 88.3 H, Lymph % (Auto) 3.5 L, Addison % (Auto) 4.8, Eos % (Auto) 0.1, Baso % (Auto) 0.9, Absolute Neuts (auto) 17.9 H, Absolute Lymphs (auto) 0.71 L, Nucleated RBC % 0 Microbiology: Microbiology 10/18/23 14:45 Urine, Clean Catch Urine Culture - Preliminary Coag Negative Staph 10/18/23 11:48 Mucosa - Nasopharyngeal Respiratory Panel (PCR) - Final Meaningful Use Info Meaningful Use Meaningful Use Diagnoses (Choose all that apply): None applicable Ischemic Stroke Statin Dosing Therapy Reference: STATIN DOSE THERAPY REFERENCE: * Patients > 75 years receive moderate or high dose statin therapy. * Patients 75 years or YOUNGER should receive HIGH intensity statin dose unless contraindicated. You will be required to document reason for non-treatment if statin daily dose does not meet guidelines. HIGH DOSE STATIN THERAPY DAILY Atorvastatin > than or = to 40 mg Rosuvastatin > than or = to 20 mg Amlodipine + Atorvastatin > than or = to 2.5/40 mg Ezetimibe + Simvastatin 10/80 mg Simvastatin 80mg Discharge Plan Admission Admit Date/Time: 10/14/23 13:45 Primary Reason for Your Visit: Generalized weakness Attending Provider: Adria Felder Primary Care Provider: Jamshid Kuhn Consulting Providers: Ke Gonsalez; Ambar Odom Instructions Patient Instructions: ED Fall Prevention Additional Instructions / Restrictions: DISCHARGE INSTRUCTIONS PLEASE READ *Please take this with you to your next doctors appointment* -Would recommend lab work (BMP) to check your sodium levels in 2 to 3 days through your primary care physician's office. Please call their office upon discharge to obtain order for lab work. -Please call your primary care provider's office upon discharge to schedule a hospital follow up within 1 week. -For any concerning signs or symptoms please call 911 or proceed to the nearest emergency department Discharge Orders/Prescriptions Prescriptions: New sertraline 50 mg Tablet 50 mg PO DAILY Qty: 0 0RF levofloxacin 750 mg Tablet 750 mg PO DAILY@0600 7 Days Qty: 0 0RF sodium chloride 1,000 mg tablet,soluble 1,000 mg PO DAILY Qty: 1 0RF Continued tamsulosin 0.4 mg capsule 0.4 mg PO DAILY lidocaine-prilocaine 2.5-2.5 % cream 1 applic topical ONCE PRN (Reason: port access) 30 Days Qty: 30 2RF folic acid 1 mg tablet 1 mg PO DAILY Qty: 90 1RF potassium chloride 20 mEq tablet,ER particles/crystals 20 meq PO DAILY Qty: 3 0RF Senna Plus 8.6-50 mg capsule 1 tab-cap PO BID PRN (Reason: constipation) dexamethasone 4 mg tablet 4 mg PO DAILY Qty: 36 0RF Patient Comments: PT ENDED CHEMO CYCLE ON 10/05/23 Rx Instructions: 8 mg orally daily ONLY days 2-4 of chemotherapy cycle Combivent Respimat 20-100 mcg/actuation mist 1 puff INHALATION Q6H PRN (Reason: WHEEZING) tramadol 50 mg tablet 25 mg PO QHS magnesium citrate Solution 150 ml PO BID Qty: 296 0RF diazepam [Valium] 5 mg tablet 5 mg PO QHS PRN (Reason: muscle spasm) Qty: 12 0RF fluticasone propionate 50 mcg/actuation spray,suspension 2 spray INTRANASAL DAILY Qty: 16 5RF apixaban 5 mg tablet 5 mg PO BID Qty: 60 2RF ondansetron 8 mg tablet,disintegrating 8 mg PO Q8H PRN (Reason: nausea and vomiting) Qty: 30 2RF Referrals / Follow Up: Jamshid Kuhn DO [Primary Care Provider] - Disposition Disposition (needs filled in before D/C Order can be placed): [facility] Charges/Coding Visit Charges Inpatient E&M: 96002 Disch Hosp >30min
== END 2023-10-20 12:50 | disposition skilled nursing facility (03) | DRG 640 ==
LOC: ED 15:05 → MS3 17:12
PROVIDERS: Internal Medicine; Nurse Practitioner; Admitting Provider Hospitalist; Emergency Provider Emergency Medicine; PCP Family Medicine; Visit Provider Family Medicine
DX: E87.1 Hypo-osmolality and hyponatremia (principal); E43 Unspecified severe protein-calorie malnutrition; C77.9 Secondary and unspecified malignant neoplasm of lymph node, unspecified; C79.71 Secondary malignant neoplasm of right adrenal gland; N13.8 Other obstructive and reflux uropathy; C79.31 Secondary malignant neoplasm of brain; C34.92 Malignant neoplasm of unspecified part of left bronchus or lung; D69.6 Thrombocytopenia, unspecified; J43.9 Emphysema, unspecified; D53.9 Nutritional anemia, unspecified; S01.511A Laceration without foreign body of lip, initial encounter; S02.5XXA Fracture of tooth (traumatic), initial encounter for closed fracture; S13.4XXA Sprain of ligaments of cervical spine, initial encounter; W19.XXXA Unspecified fall, initial encounter; E86.0 Dehydration; R62.7 Adult failure to thrive; T45.1X5A Adverse effect of antineoplastic and immunosuppressive drugs, initial encounter; G89.29 Other chronic pain; N40.1 Benign prostatic hyperplasia with lower urinary tract symptoms; Z66 Do not resuscitate; Z79.01 Long term (current) use of anticoagulants; Z79.899 Other long term (current) drug therapy; Z87.891 Personal history of nicotine dependence; Z68.20 Body mass index [BMI] 20.0-20.9, adult; R29.6 Repeated falls; Z86.718 Personal history of other venous thrombosis and embolism
CPT/HCPCS: 36415; 36591; 70450; 70486; 71046; 72125; 80048; 80053; 81001; 82306; 82436; 82570; 82607; 82746; 83735; 83930; 84133; 84300; 84443; 84540; 85025; 87040; 87077; 87086; 87088; 87186; 87633; 93005; 94640; 97110; 97162; 97166; 97530; 97535; 97802; 99252; 99285; J7030; A4216; G0463; J2405